=== PATIENT | male | born 1960 | race Caucasian/White ===

== ENCOUNTER 2020-01-06 09:29 | Outpatient (REF) | payer OTHER, SELFPAY ==
[2020-01-06 11:40] LABS: Alanine Aminotransferase 19 U/L (0-40); Albumin Level 4.3 g/dL (3.5-5.0); Alkaline Phosphatase 56 U/L (39-117); Anion Gap 14 (12-20); Aspartate Amino Transferase 14 U/L (5-37); Bilirubin Total 0.4 mg/dL (0.0-1.0); Blood Urea Nitrogen 16 mg/dL (9-16); Calcium 8.8 mg/dL (8.4-10.2); Carbon Dioxide 26 mmol/L (22-29); Chloride 104 mmol/L (96-108); Estimated Glomerular Filt Rate > 60; Glucose Random 131 mg/dL (60-115); Potassium 4.3 mmol/l (3.3-5.1); Sodium 140 mmol/L (135-145); Total Protein 6.5 g/dL (6.5-8.0)
[2020-01-06 11:42] LABS: Estimated Average Glucose 123 mg/dL; Hemoglobin A1c % 5.9 %
== END 2020-01-06 09:30 | disposition home or self-care (01) ==
LOC: HO.HMGCX 09:29
PROVIDERS: PCP Internal Medicine; Visit Provider Internal Medicine
DX: E11.65 Type 2 diabetes mellitus with hyperglycemia (principal); E78.5 Hyperlipidemia, unspecified; E55.9 Vitamin D deficiency, unspecified
CPT/HCPCS: 80053; 83036

== ENCOUNTER → 2020-01-08 14:03 | Outpatient (BNVA) | payer OTHER, SELFPAY | PROVIDERS: PCP Internal Medicine; Referring Provider Internal Medicine; Visit Provider Internal Medicine | DX: E11.9 Type 2 diabetes mellitus without complications (principal); I10 Essential (primary) hypertension; E78.5 Hyperlipidemia, unspecified; E04.1 Nontoxic single thyroid nodule | CPT/HCPCS: 82947; 99212 ==

== ENCOUNTER 2020-04-03 08:34 | Outpatient (REF) | payer OTHER, SELFPAY ==
[2020-04-03 11:21] LABS: MANUAL DIFF FLAG NO
[2020-04-03 11:40] LABS: Estimated Average Glucose 126 mg/dL
[2020-04-03 11:46] LABS: Basophils Absolute Auto 0.1 X10*3/uL (0.0-0.2); Basophils Percent Auto 0.6 % (0-2); Eosinophils Absolute Auto 0.1 X10*3/uL (0.0-0.4); Hematocrit 45.5 % (42-52); Hemoglobin 14.2 g/dl (14.0-18.0); Imm Gran Abs Auto 0.05 X10*3/uL (0.00-0.03); Imm Gran Pct Auto 0.6 % (0.0-0.4); Lymphocytes Absolute Auto 2.9 X10*3/uL (1.2-4.9); Lymphocytes Percent Auto 33.4 % (20-40); Mean Corpuscular HGB Conc 31.2 g/dl (31.0-36.0); Mean Corpuscular Hemoglobin 26.7 pg (27.0-33.0); Mean Corpuscular Volume 85.5 fL (80-98); Mean Platelet Volume 11.1 fL (9.4-12.4); Monocytes Absolute Auto 0.7 X10*3/uL (0.1-1.2); Monocytes Percent Auto 8.5 % (2-11); Neutrophils Absolute Auto 4.9 X10*3/uL (2.0-8.3); Neutrophils Percent Auto 55.9 % (45-73); Platelet Count 263 X10*3/uL (160-400); Red Blood Count 5.32 X10*6/uL (4.60-5.80); Red Cell Distribution Width 15.1 % (11.0-16.0); White Blood Count 8.7 X10*3/uL (4.8-10.8)
[2020-04-03 12:15] LABS: Alanine Aminotransferase 21 U/L (0-40); Albumin Level 4.2 g/dL (3.5-5.0); Alkaline Phosphatase 50 U/L (39-117); Anion Gap 17 (12-20); Aspartate Amino Transferase 13 U/L (5-37); Bilirubin Total 0.4 mg/dL (0.0-1.0); Blood Urea Nitrogen 16 mg/dL (9-16); Calcium 8.6 mg/dL (8.4-10.2); Carbon Dioxide 26 mmol/L (22-29); Chloride 104 mmol/L (96-108); Cholesterol 138 mg/dL; Estimated Glomerular Filt Rate > 60; Glucose Random 138 mg/dL (60-115); HDL Cholesterol 33 mg/dL; LDL Cholesterol Calculated 78 mg/dl; Potassium 4.7 mmol/l (3.3-5.1); Sodium 142 mmol/L (135-145); Total Protein 6.5 g/dL (6.5-8.0); Triglycerides 135 mg/dL
[2020-04-03 12:37] LABS: Creatinine Urine 148.72 mg/dL; Microalbum/Creatinine Ratio Ur 14.1 ug/mg cr
[2020-04-04 11:03] LABS: LDL Cholesterol Direct 92 mg/dL (<100)
[2020-04-08 03:17] LABS: Fructosamine 230 umol/L (205-285)
== END 2020-04-03 08:35 | disposition home or self-care (01) ==
LOC: HO.HMGCLDS 08:34
PROVIDERS: PCP Internal Medicine; Visit Provider Internal Medicine
DX: E11.9 Type 2 diabetes mellitus without complications (principal)
CPT/HCPCS: 36415; 80053; 80061; 82043; 82985; 83036; 83721; 85025

== ENCOUNTER → 2020-04-08 14:29 | Outpatient (BNVA) | payer OTHER, SELFPAY | PROVIDERS: PCP Internal Medicine; Visit Provider Internal Medicine | DX: E11.9 Type 2 diabetes mellitus without complications (principal); E78.5 Hyperlipidemia, unspecified; E04.1 Nontoxic single thyroid nodule; I10 Essential (primary) hypertension | CPT/HCPCS: 82947; 99212 ==

== ENCOUNTER 2020-07-03 07:37 | Outpatient (REF) | payer OTHER, SELFPAY ==
[2020-07-03 12:03] LABS: Estimated Average Glucose 123 mg/dL; Hemoglobin A1C 152.3852 umol/L; Hemoglobin A1c % 5.9 %
[2020-07-03 12:06] LABS: Alanine Aminotransferase 19 U/L (0-40); Albumin Level 4.1 g/dL (3.5-5.0); Alkaline Phosphatase 51 U/L (39-117); Anion Gap 13 (12-20); Aspartate Amino Transferase 13 U/L (5-37); Bilirubin Total 0.6 mg/dL (0.0-1.0); Blood Urea Nitrogen 17 mg/dL (9-16); Calcium 9.1 mg/dL (8.4-10.2); Carbon Dioxide 25 mmol/L (22-29); Chloride 105 mmol/L (96-108); Creatinine Urine 72.46 mg/dL; Estimated Glomerular Filt Rate > 60; Glucose Random 132 mg/dL (60-115); Potassium 4.3 mmol/L (3.3-5.1); Sodium 139 mmol/L (135-145); Total Protein 6.3 g/dL (6.5-8.0)
== END 2020-07-03 07:38 | disposition home or self-care (01) ==
LOC: HO.HMGCLDS 07:37
PROVIDERS: PCP Internal Medicine; Visit Provider Internal Medicine
DX: E11.9 Type 2 diabetes mellitus without complications (principal)
CPT/HCPCS: 36415; 80053; 83036

== ENCOUNTER → 2020-07-08 11:50 | Outpatient (BNVA) | payer OTHER, SELFPAY | PROVIDERS: PCP Internal Medicine; Visit Provider Internal Medicine | DX: E04.1 Nontoxic single thyroid nodule (principal); E11.9 Type 2 diabetes mellitus without complications; E78.5 Hyperlipidemia, unspecified; I10 Essential (primary) hypertension; K21.9 Gastro-esophageal reflux disease without esophagitis; K22.70 Barrett's esophagus without dysplasia; F32.9 Major depressive disorder, single episode, unspecified; F17.290 Nicotine dependence, other tobacco product, uncomplicated; Z83.3 Family history of diabetes mellitus; Z79.84 Long term (current) use of oral hypoglycemic drugs; Z79.82 Long term (current) use of aspirin; Z79.899 Other long term (current) drug therapy | CPT/HCPCS: Q3014 ==

== ENCOUNTER 2020-10-01 08:04 | Outpatient (REF) | payer OTHER, SELFPAY ==
[2020-10-01 12:02] LABS: Estimated Average Glucose 128 mg/dL; Hemoglobin A1c % 6.1 %
[2020-10-01 12:22] LABS: Alanine Aminotransferase 20 U/L (0-40); Albumin Level 4.1 g/dL (3.5-5.0); Alkaline Phosphatase 49 U/L (39-117); Anion Gap 13 (12-20); Aspartate Amino Transferase 16 U/L (5-37); Bilirubin Total 0.4 mg/dL (0.0-1.0); Blood Urea Nitrogen 15 mg/dL (9-16); Calcium 9.5 mg/dL (8.4-10.2); Carbon Dioxide 25 mmol/L (22-29); Chloride 107 mmol/L (96-108); Estimated Glomerular Filt Rate > 60; Glucose Random 132 mg/dL (60-115); Potassium 4.4 mmol/L (3.3-5.1); Sodium 141 mmol/L (135-145); Total Protein 6.3 g/dL (6.5-8.0)
== END 2020-10-01 08:05 | disposition home or self-care (01) ==
LOC: HO.HMGCLDS 08:04
PROVIDERS: PCP Internal Medicine; Visit Provider Internal Medicine
DX: E11.9 Type 2 diabetes mellitus without complications (principal)
CPT/HCPCS: 36415; 80053; 83036

== ENCOUNTER → 2020-10-05 13:58 | Outpatient (BNVA) | payer OTHER, SELFPAY | PROVIDERS: PCP Internal Medicine; Visit Provider Internal Medicine | DX: E11.9 Type 2 diabetes mellitus without complications (principal); I10 Essential (primary) hypertension; E78.5 Hyperlipidemia, unspecified; E04.1 Nontoxic single thyroid nodule | CPT/HCPCS: 82947; 99212 ==

== ENCOUNTER 2020-10-28 10:31 | Outpatient (REF) | payer OTHER, SELFPAY ==
--- NOTE | ~2020-10-28 | US_ITS ---
EXAMINATION: US THYROID CLINICAL INFORMATION: Nontoxic single thyroid nodule. COMPARISON: Ultrasound soft tissue head/neck thyroid dated 09/30/2019 TECHNIQUE: Linear transducer dixon-scale and color Doppler examination with attention to the region of the thyroid. Technically limited study secondary to body habitus. FINDINGS: SIZE: Measurements of the thyroid lobes and nodules are given in sagittal, anteroposterior and transverse dimensions respectively. Right Thyroid Lobe: 4.4 x 1.7 x 1.3 cm, volume 5.3 mL. Previously 4.4 x 1.5 x 1.6 cm, volume 5.5 mL. Parenchyma: The gland echotexture is homogeneous. Thyroid vascularity is normal. Left Thyroid Lobe: 4.9 x 1.1 x 1.8 cm, volume 4.8 mL. Previously 4.1 x 1.8 x 1.2 cm, volume 4.5 mL. Parenchyma: The gland echotexture is homogeneous. Thyroid vascularity is normal. Isthmus: 0.7 cm in maximum AP dimension. Previously 0.5 cm. Estimated total number of nodules greater than or equal to 1 cm: 0. Police Officer Booking nodules are described as follows: 1. Location: Right mid. Size: 0.58 x 0.34 x 0.4 cm, volume 0.04 mL. Previously: 0.5 x 0.31 x 0.45 cm, volume 0.04 mL. Nodule characteristics: Composition: Mixed cystic and solid (1). Echogenicity: Very hypoechoic (3). Shape: Not taller than wide (0). Margins: Smooth (0). Echogenic Foci: None (0). ACR TI-RADS total points: 4 ACR TI-RADS category: 4 Significant change in size (>/= 20% in 2 dimensions and minimal increase of 2 mm or 50% or greater increase in volume): None. Change in features: Not applicable. Change in ACR TI-RADS risk category: Not applicable. NODES: No lymphadenopathy is seen in the tissue surrounding the thyroid gland. US/US thyroid IMPRESSION: Normal size thyroid gland with subcentimeter nodule midpole right lobe. ACR TI-RADS RECOMMENDATION REFERENCE: Ultrasound-guided fine-needle aspiration, followup ultrasound, no further followup. * TR1 (0 point) and TR 2 (2 points): No FNA or followup. * TR3 (3 points): FNA if more than or equal to 2.5 cm in maximum dimension, followup ultrasound in 1, 3 and 5 years if 1.5 to 2.4 cm in maximum dimension. * TR4 (4-6 points): FNA if more than or equal to 1.5 cm in maximum dimension, followup ultrasound in 1, 2, 3 and 5 years if 1 to 1.4 cm in maximum dimension. * TR5 (more than or equal to 7 points): FNA if more than or equal to 1 cm in maximum dimension, followup ultrasound every year for 5 years if 0.5 to 0.9 cm in maximum dimension. * TR3, TR4 or TR5 nodules that are below the size threshold for followup receive no followup.
== END 2020-10-28 10:32 | disposition home or self-care (01) ==
LOC: HO.HMGCX 10:31
PROVIDERS: PCP Internal Medicine; Visit Provider Internal Medicine
DX: E04.1 Nontoxic single thyroid nodule (principal)
CPT/HCPCS: 76536

== ENCOUNTER 2020-11-04 07:14 | Day surgery (SDC) | payer OTHER, SELFPAY ==
[2020-10-28 14:23] VITALS: BMI 37.9
--- NOTE | 2020-11-03 08:30 | P.CONAN_ITS ---
Documented by User: Lucero Macedo NP 11/03/20 08:31 HPI - Anesthesia Eval Consult details Narrative: 59yo M for Colonoscopy PMFSH Active Problems Active Problems: All Active Problems (Updated 05/14/20 @ 09:52 by Oralia Smith MD) Annual physical exam (Acute) Abnormal colonoscopy (Acute) Anxiety (Acute) Lin esophagus (Acute) Thyroid nodule (Acute) T2DM (type 2 diabetes mellitus) (Acute) HLD (hyperlipidemia) (Acute) HTN (hypertension) (Acute) Past Medical History Medical History Abnormal colonoscopy Annual physical exam Anxiety Lin esophagus GERD (gastroesophageal reflux disease) HLD (hyperlipidemia) HTN (hypertension) Iron deficiency anemia Panic disorder T2DM (type 2 diabetes mellitus) Thyroid nodule Family History Family History Father Diabetes mellitus Mother Diabetes mellitus CVD (cardiovascular disease) Surgical History Surgical History History of back surgery History of esophagogastroduodenoscopy (EGD) Hx of colonoscopy Hx of hernia repair Social History Social History Alcohol intake: current Alcohol intake frequency: a few times a week Patient Tobacco Use Status: Current someday Tobacco user Tobacco use type: Cigar Are you DNR?: No Advance Directives: No Advance Directives Information Provided: No Advance Directives on File: No Meds Allergies Allergy/AdvReac Type Severity Reaction Status Date / Time No Known Allergies Allergy Verified 10/28/20 14:19 Home Medications Medication Instructions Recorded Confirmed Last Taken Type blood sugar diagnostic #10 ea 01/08/20 10/05/20 Unknown History aspirin 81 mg tablet,delayed 81 mg PO Q OTHER DAY 07/08/20 10/28/20 10/28/20 History release (Adult Low Dose Aspirin) ferrous sulfate 325 mg (65 mg 325 mg PO Q OTHER DAY 07/08/20 10/28/20 Unknown History iron) tablet (iron) atorvastatin 40 mg tablet 40 mg PO BEDTIME 10/28/20 10/28/20 Unknown History bupropion HCl 300 mg 24 hr tablet, 300 mg PO BEDTIME 10/28/20 10/28/20 Unknown History extended release metoprolol succinate 50 mg 50 mg PO BEDTIME 10/28/20 10/28/20 11/04/20 History tablet,extended release 24 hr omeprazole 20 mg capsule,delayed 20 mg PO DAILY@1700 10/28/20 10/28/20 11/04/20 History release Exam Exam Date and Time: November 03, 2020 0830 Height,Weight and Vital Signs: Height 5 ft 7 in Weight 109.769 kg Pertinent Lab Results Pertinent Lab Results: Laboratory Tests 04/03/20 10/01/20 08:45 08:10 WBC 8.7 Hgb 14.2 Hct 45.5 Plt Count 263 Sodium 141 Potassium 4.4 Chloride 107 Carbon Dioxide 25 BUN 15 Creatinine 0.85 Assessment and Plan Assessment Anesthesia Assessment: Chart Reviewed Documented by User: Sharona Ybarra MD 11/04/20 07:56 PMFSH Past Medical History Medical History Abnormal colonoscopy Annual physical exam Anxiety Lin esophagus GERD (gastroesophageal reflux disease) HLD (hyperlipidemia) HTN (hypertension) Iron deficiency anemia Panic disorder T2DM (type 2 diabetes mellitus) Thyroid nodule Family History Family History Father Diabetes mellitus Mother Diabetes mellitus CVD (cardiovascular disease) Family history of problems with anesthesia: No Surgical History Surgical History History of back surgery History of esophagogastroduodenoscopy (EGD) Hx of colonoscopy Hx of hernia repair History of Problems with Anesthesia: No Social History Social History Alcohol intake: current Alcohol intake frequency: a few times a week Patient Tobacco Use Status: Current someday Tobacco user Tobacco use type: Cigar Are you DNR?: No Advance Directives: No Advance Directives Information Provided: No Advance Directives on File: No Meds Allergies Allergy/AdvReac Type Severity Reaction Status Date / Time No Known Allergies Allergy Verified 10/28/20 14:19 Home Medications Medication Instructions Recorded Confirmed Last Taken Type blood sugar diagnostic #10 ea 01/08/20 10/05/20 Unknown History aspirin 81 mg tablet,delayed 81 mg PO Q OTHER DAY 07/08/20 10/28/20 10/28/20 History release (Adult Low Dose Aspirin) ferrous sulfate 325 mg (65 mg 325 mg PO Q OTHER DAY 07/08/20 10/28/20 Unknown History iron) tablet (iron) atorvastatin 40 mg tablet 40 mg PO BEDTIME 10/28/20 10/28/20 Unknown History bupropion HCl 300 mg 24 hr tablet, 300 mg PO BEDTIME 10/28/20 10/28/20 Unknown History extended release metoprolol succinate 50 mg 50 mg PO BEDTIME 10/28/20 10/28/20 11/04/20 History tablet,extended release 24 hr omeprazole 20 mg capsule,delayed 20 mg PO DAILY@1700 10/28/20 10/28/20 11/04/20 History release Exam Airway Mallampati Class: II TM Dist: >3cm Neck ROM: Full Assessment and Plan Assessment Anesthesia Assessment: Anesthesia Plan Discussed Final Anesthetic Review Family History of Problems with Anesthesia: No History of Problems with Anesthesia: No NPO: Yes ASA Class: III Final Preanesthetic Review: No Changes in Pt Med Stat, Meds/Allgs Chart Reviewe d, Consent Obtained/Reviewed and Anes Risks/Benef Reviewed Patient Risk: Intermediate Procedure Risk: Low Assessment/Block/Sedation in SS: Assess/Block/Sedation-SS Anesthetic Plan Anesthetic Plan: MAC: Disposition: Standard PACU
[2020-11-04 07:31] VITALS: BP 136/73; PULSE 82; RESP 16; TEMP 36.3; O2SAT 98
[2020-11-04 07:38] LABS: Glucose, Whole Blood 130 mg/dL (60-115)
[2020-11-04] MEDS: Lactated Ringers 1,000 ML 100 ML IVCONT (07:42)
--- NOTE | 2020-11-04 09:36 | PM.OP ---
Brief Operative Note Date of Service: 11/04/20 Pre-op diagnosis: Screening Post-op diagnosis: other (Colon polyp) Procedure: Colonoscopy to the cecum with bx/removal of polyp Surgeon: Mihir Tirado Anesthesia: MAC Was an Senior Reservations Agent used for this Procedure?: No Estimated blood loss (mL): 3.0 Pathology: other (A. Colon polyp at 40cm) Condition: stable Disposition: PACU
[2020-11-04 09:38] VITALS: BP 136/59; PULSE 101; RESP 18; TEMP 36.4; O2SAT 98
[2020-11-04 09:51] VITALS: PULSE 84; RESP 20; O2SAT 98
--- NOTE | 2020-11-04 09:51 | OP_ITS ---
SURGEON: Mihir Tirado MD INDICATIONS: The patient presents for evaluation of colorectal cancer screening and personal history of colon polyps. Full consent has been obtained from him for this, including risks of bleeding and perforation. PREOPERATIVE DIAGNOSIS: POSTOPERATIVE DIAGNOSIS: PROCEDURE PERFORMED: Colonoscopy to cecum with biopsy and removal of polyp. ESTIMATED BLOOD LOSS: COMPLICATIONS: ANESTHESIA: Monitored anesthesia care. ASSISTANTS: SPECIMENS: PREOPERATIVE DIAGNOSES: Colorectal cancer screening and personal history of colon polyps. POSTOPERATIVE DIAGNOSES: Colorectal cancer screening and personal history of colon polyps, small colon polyp, diverticulosis, and internal hemorrhoids. DESCRIPTION OF PROCEDURE: The patient was placed in the left lateral decubitus position. The digital rectal exam revealed no abnormalities. The Olympus video pediatric colonoscope was entered into the rectum and advanced easily to the cecum. Once in the cecum, I did identify normal-appearing cecal pouch with appendiceal orifice and a normal-appearing ileocecal valve. The entire cecum appeared normal. There was transillumination of light deep in the right lower quadrant. The scope was slowly withdrawn assessing all mucosal surfaces carefully. Preparation was excellent. At 40 cm, was a flat approximately 3 or 4 mm polyp, which was biopsied and completely removed with cold biopsy forceps. I did not visualize any other polyps, colitis, nor angiodysplasia. There was a mild amount of sigmoid diverticulosis. In the rectum, scope was retroflexed visualizing internal hemorrhoids, but no other pathology. The rectal mucosa appeared normal. The scope was straightened out and withdrawn from the patient. He tolerated the procedure well and was returned to the recovery area in stable condition. IMPRESSION: 1. Colon polyp, status post biopsy and removal. 2. Diverticulosis. 3. Internal hemorrhoids. PLAN: The results of biopsy will be checked. I would recommend a repeat colonoscopy in 5 years for further surveillance. MD MARCELLA Knowles/JENNIFER / [id number]
[2020-11-04 09:53] VITALS: BP 120/69; PULSE 86; RESP 18; O2SAT 99
== END 2020-11-04 10:23 | disposition home or self-care (01) ==
PROVIDERS: PCP Internal Medicine; Visit Provider Internal Medicine
PROC: 0DJD8ZZ Inspection of Lower Intestinal Tract, Via Natural or Artificial Opening Endoscopic (ICD-10-PCS; CPT 45378; principal; 2020-11-04 08:20)
DX: Z12.11 Encounter for screening for malignant neoplasm of colon (principal); Z86.010 Personal history of colon polyps; D12.5 Benign neoplasm of sigmoid colon; K57.30 Diverticulosis of large intestine without perforation or abscess without bleeding; K64.8 Other hemorrhoids; K21.9 Gastro-esophageal reflux disease without esophagitis; D50.9 Iron deficiency anemia, unspecified; I10 Essential (primary) hypertension; E11.9 Type 2 diabetes mellitus without complications; Z79.84 Long term (current) use of oral hypoglycemic drugs; Z79.82 Long term (current) use of aspirin; Z79.899 Other long term (current) drug therapy
CPT/HCPCS: 45380; 82947; 88305

== ENCOUNTER 2021-03-31 08:25 | Outpatient (REF) | payer OTHER, SELFPAY ==
[2021-03-31 12:02] LABS: Estimated Average Glucose 126 mg/dL
[2021-03-31 12:09] LABS: Alanine Aminotransferase 26 U/L (0-40); Albumin Level 4.1 g/dL (3.5-5.0); Alkaline Phosphatase 48 U/L (39-117); Anion Gap 13 (12-20); Aspartate Amino Transferase 16 U/L (5-37); Bilirubin Total 0.4 mg/dL (0.0-1.0); Blood Urea Nitrogen 18 mg/dL (9-16); Calcium 9.5 mg/dL (8.4-10.2); Carbon Dioxide 25 mmol/L (22-29); Chloride 108 mmol/L (96-108); Cholesterol 134 mg/dL; Estimated Glomerular Filt Rate > 60; Glucose Random 130 mg/dL (60-115); HDL Cholesterol 38 mg/dL; LDL Cholesterol Calculated 76 mg/dl; Potassium 4.4 mmol/L (3.3-5.1); Sodium 142 mmol/L (135-145); Total Protein 6.5 g/dL (6.5-8.0); Triglycerides 104 mg/dL
[2021-03-31 12:10] LABS: Free T4 (Free Thyroxine) 0.92 ng/dL (0.71-1.85); Thyroid Stimulating Hormone 1.26 uIU/mL (0.32-4.0)
[2021-03-31 21:44] LABS: Creatinine Urine 92.88 mg/dL; Microalbum/Creatinine Ratio Ur 7.5 ug/mg cr
[2021-04-02 02:32] LABS: LDL Cholesterol Direct 80 mg/dL (<100)
== END 2021-03-31 08:26 | disposition home or self-care (01) ==
LOC: HO.HMGCLDS 08:25
PROVIDERS: PCP Internal Medicine; Visit Provider Internal Medicine
DX: E11.9 Type 2 diabetes mellitus without complications (principal); E04.1 Nontoxic single thyroid nodule
CPT/HCPCS: 36415; 80053; 80061; 82043; 83036; 83721; 84439; 84443

== ENCOUNTER → 2021-04-05 13:32 | Outpatient (BNVA) | payer OTHER, SELFPAY | PROVIDERS: PCP Internal Medicine; Visit Provider Internal Medicine | DX: E11.9 Type 2 diabetes mellitus without complications (principal); E78.5 Hyperlipidemia, unspecified; E04.1 Nontoxic single thyroid nodule; I10 Essential (primary) hypertension | CPT/HCPCS: 82947; 99212 ==

== ENCOUNTER → 2021-05-12 15:39 | Outpatient (BNVA) | payer OTHER, SELFPAY | PROVIDERS: PCP Internal Medicine; Visit Provider Surgery | DX: K64.4 Residual hemorrhoidal skin tags (principal) | CPT/HCPCS: 46600; 99202 ==

== ENCOUNTER → 2021-06-10 15:39 | Outpatient (BNVA) | payer OTHER, SELFPAY | PROVIDERS: PCP Internal Medicine; Referring Provider Internal Medicine; Visit Provider Surgery | DX: K64.4 Residual hemorrhoidal skin tags (principal) | CPT/HCPCS: 99212 ==

== ENCOUNTER 2021-06-14 07:35 | Outpatient (REF) | payer OTHER, SELFPAY ==
[2021-06-14 12:23] LABS: Alanine Aminotransferase 29 U/L (0-40); Albumin Level 3.9 g/dL (3.5-5.0); Alkaline Phosphatase 67 U/L (39-117); Anion Gap 11 (12-20); Aspartate Amino Transferase 19 U/L (5-37); Bilirubin Total 0.6 mg/dL (0.0-1.0); Blood Urea Nitrogen 11 mg/dL (9-16); Calcium 9.1 mg/dL (8.4-10.2); Carbon Dioxide 29 mmol/L (22-29); Chloride 104 mmol/L (96-108); Cholesterol 89 mg/dL; Estimated Glomerular Filt Rate > 60; Glucose Fasting 136 mg/dL (60-99); HDL Cholesterol 13 mg/dL; LDL Cholesterol Calculated 56 mg/dl; Potassium 4.1 mmol/L (3.3-5.1); Sodium 140 mmol/L (135-145); Total Protein 6.4 g/dL (6.5-8.0); Triglycerides 103 mg/dL
[2021-06-14 13:04] LABS: Estimated Average Glucose 128 mg/dL; Hemoglobin A1c % 6.1 %
== END 2021-06-14 07:36 | disposition home or self-care (01) ==
LOC: HO.HMGCLDS 07:35
PROVIDERS: Visit Provider Internal Medicine
DX: Z12.5 Encounter for screening for malignant neoplasm of prostate (principal); E11.9 Type 2 diabetes mellitus without complications; E78.5 Hyperlipidemia, unspecified; F41.9 Anxiety disorder, unspecified; I10 Essential (primary) hypertension
CPT/HCPCS: 36415; 80053; 80061; 83036; 84153

== ENCOUNTER → 2021-07-12 11:03 | Outpatient (BNVA) | payer OTHER, SELFPAY | PROVIDERS: PCP Internal Medicine; Visit Provider Internal Medicine | DX: Z13.89 Encounter for screening for other disorder (principal) ==

== ENCOUNTER 2021-07-30 08:03 | Outpatient (REF) | payer OTHER, SELFPAY ==
[2021-07-30 11:17] LABS: Hematocrit 44.2 % (42.0-52.0); Hemoglobin 13.3 g/dl (14.0-18.0); Mean Corpuscular HGB Conc 30.1 g/dl (31.0-36.0); Mean Corpuscular Hemoglobin 24.3 pg (27.0-33.0); Mean Corpuscular Volume 80.8 fL (80.0-98.0); Mean Platelet Volume 9.9 fL (9.4-12.4); Platelet Count 277 X10*3/uL (160-400); Red Blood Count 5.47 X10*6/uL (4.60-5.80); Red Cell Distribution Width 16.1 % (11.0-16.0); White Blood Count 7.6 X10*3/uL (4.8-10.8)
[2021-07-30 11:32] LABS: Cholesterol 130 mg/dL; HDL Cholesterol 23 mg/dL; Iron 41 mcg/dL (45-160); LDL Cholesterol Calculated 92 mg/dl; Percent Iron Saturation 12 % (15-50); Total Iron Binding Capacity 339 mcg/dL (228-428); Triglycerides 77 mg/dL; Unsaturated Iron Binding 298 ug/dL
[2021-07-30 11:55] LABS: Folate 5.5 ng/mL (> or = 4.0); Vitamin B12 317 pg/mL (200-900)
== END 2021-07-30 08:04 | disposition home or self-care (01) ==
LOC: HO.HMGCLDS 08:03
PROVIDERS: PCP Internal Medicine; Visit Provider Internal Medicine
DX: E78.5 Hyperlipidemia, unspecified (principal); I10 Essential (primary) hypertension; E61.1 Iron deficiency
CPT/HCPCS: 36415; 80061; 82607; 82746; 83540; 85027

== ENCOUNTER 2021-08-03 05:57 | Day surgery (SDC) | payer OTHER, SELFPAY ==
[2021-07-28 11:33] VITALS: BMI 36.3
--- NOTE | 2021-08-02 08:28 | HO.ANESPROP2 ---
Documented by User: Lucero Macedo NP 08/02/21 08:29 HPI - Anesthesia Eval Consult details Narrative: 60yo M for EUA,Hemorrhoidectomy PMFSH Active Problems Active Problems: All Active Problems (Updated 06/17/21 @ 12:38 by Oralia Smith MD) Iron deficiency (Acute) Hyperlipemia (Acute) External hemorrhoids with complication (Acute) Rectal prolapse (Acute) Annual physical exam (Acute) Abnormal colonoscopy (Acute) Anxiety (Acute) Lin esophagus (Acute) Thyroid nodule (Acute) T2DM (type 2 diabetes mellitus) (Acute) HTN (hypertension) (Acute) Past Medical History Medical History Abnormal colonoscopy Annual physical exam Anxiety Lin esophagus External hemorrhoids with complication GERD (gastroesophageal reflux disease) HTN (hypertension) Hyperlipemia Iron deficiency Iron deficiency anemia Panic disorder Rectal prolapse T2DM (type 2 diabetes mellitus) Thyroid nodule Family History Family History Father Diabetes mellitus Mother Diabetes mellitus CVD (cardiovascular disease) Family history of problems with anesthesia: No Surgical History Surgical History (Updated 07/28/21 @ 11:30 by Makenna Handley RN) History of back surgery History of esophagogastroduodenoscopy (EGD) Hx of colonoscopy Hx of hernia repair History of Problems with Anesthesia: No Social History Social History Housing: House Alcohol intake: current Alcohol intake frequency: holidays/special occasions only Patient Tobacco Use Status: Current someday Tobacco user Tobacco use type: Cigarette e-Cigarette/Vaping Use: Never Used Use of substances other than those prescribed or required for medical reasons: No Are you DNR?: No Advance Directives: No Advance Directives Information Provided: Yes Current occupational status: employed Cognitive needs: No Hearing needs: No Vision needs: Yes Meds Allergies Allergy/AdvReac Type Severity Reaction Status Date / Time No Known Allergies Allergy Verified 07/12/21 13:00 Home Medications Medication Instructions Recorded Confirmed Last Taken Type blood sugar diagnostic #10 ea 01/08/20 07/12/21 Unknown History aspirin 81 mg tablet,delayed 81 mg PO Q OTHER DAY 07/08/20 07/28/21 10/28/20 History release (Adult Low Dose Aspirin) ferrous sulfate 325 mg (65 mg 325 mg PO Q OTHER DAY 07/08/20 07/28/21 Unknown History iron) tablet (iron) Exam Exam Date and Time: August 02, 2021 0828 Height,Weight and Vital Signs: Height 5 ft 7 in Weight 105.233 kg Pertinent Lab Results Pertinent Lab Results: Laboratory Tests 06/14/21 07/30/21 07:42 08:10 WBC 7.6 Hgb 13.3 L Hct 44.2 Plt Count 277 Sodium 140 Potassium 4.1 Chloride 104 Carbon Dioxide 29 BUN 11 Creatinine 0.83 Assessment and Plan Assessment Anesthesia Assessment: Chart Reviewed Final Anesthetic Review Family History of Problems with Anesthesia: No History of Problems with Anesthesia: No Documented by User: Marie Guevara MD 08/03/21 08:06 PMF Active Problems Active Problems: All Active Problems (Updated 06/17/21 @ 12:38 by Oralia Smith MD) Iron deficiency (Acute) Hyperlipemia (Acute) External hemorrhoids with complication (Acute) Rectal prolapse (Acute) Annual physical exam (Acute) Abnormal colonoscopy (Acute) Anxiety (Acute) Lin esophagus (Acute) Thyroid nodule (Acute) T2DM (type 2 diabetes mellitus) (Acute) HTN (hypertension) (Acute) HILARIA. Not using CPAP machine Past Medical History Medical History Abnormal colonoscopy Annual physical exam Anxiety Lin esophagus External hemorrhoids with complication GERD (gastroesophageal reflux disease) HTN (hypertension) Hyperlipemia Iron deficiency Iron deficiency anemia Panic disorder Rectal prolapse T2DM (type 2 diabetes mellitus) Thyroid nodule Family History Family History Father Diabetes mellitus Mother Diabetes mellitus CVD (cardiovascular disease) Surgical History Surgical History (Updated 07/28/21 @ 11:30 by Makenna Handley RN) History of back surgery History of esophagogastroduodenoscopy (EGD) Hx of colonoscopy Hx of hernia repair Social History Social History Housing: House Alcohol intake: current Alcohol intake frequency: holidays/special occasions only Patient Tobacco Use Status: Current someday Tobacco user Tobacco use type: Cigarette e-Cigarette/Vaping Use: Never Used Use of substances other than those prescribed or required for medical reasons: No Are you DNR?: No Advance Directives: No Advance Directives Information Provided: Yes Current occupational status: employed Cognitive needs: No Hearing needs: No Vision needs: Yes Meds Allergies Allergy/AdvReac Type Severity Reaction Status Date / Time No Known Allergies Allergy Verified 07/12/21 13:00 Home Medications Medication Instructions Recorded Confirmed Last Taken Type blood sugar diagnostic #10 ea 01/08/20 07/12/21 Unknown History aspirin 81 mg tablet,delayed 81 mg PO Q OTHER DAY 07/08/20 07/28/21 10/28/20 History release (Adult Low Dose Aspirin) ferrous sulfate 325 mg (65 mg 325 mg PO Q OTHER DAY 07/08/20 07/28/21 Unknown History iron) tablet (iron) Exam Height,Weight and Vital Signs: Height 5 ft 7 in Weight 105.233 kg Vital Signs Temp Pulse Resp BP Pulse Ox 08/03/21 07:00 97.0 F 82 16 150/79 H 97 Pertinent Lab Results Pertinent Lab Results: Laboratory Tests 06/14/21 07/30/21 07:42 08:10 WBC 7.6 Hgb 13.3 L Hct 44.2 Plt Count 277 Sodium 140 Potassium 4.1 Chloride 104 Carbon Dioxide 29 BUN 11 Creatinine 0.83 Lab Results 08/03/21 Range/Units 06:22 POC Glucose 144 H (60-115) mg/dL Airway Mallampati Class: III TM Dist: >3cm (Short neck. Increased neck circumference, Big face) Neck ROM: Full Loose/Missing/Broken Teeth: No Heart: RRR Lungs: CTAB Assessment and Plan Assessment Anesthesia Assessment: Anesthesia Plan Discussed Final Anesthetic Review NPO: Yes ASA Class: III Final Preanesthetic Review: No Changes in Pt Med Stat, Meds/Allgs Chart Reviewed, Consent Obtained/Reviewed and Anes Risks/Benef Reviewed Patient Risk: Intermediate Procedure Risk: Low Assessment/Block/Sedation in SS: Assess/Block/Sedation-SS Anesthetic Plan Anesthetic Plan: GA Disposition: Standard PACU
[2021-08-03 06:26] LABS: Glucose, Whole Blood 144 mg/dL (60-115)
[2021-08-03] MEDS: Lactated Ringers 1,000 ML 100 ML IVCONT (06:31)
[2021-08-03 07:00] VITALS: BP 150/79; PULSE 82; RESP 16; TEMP 36.1; O2SAT 97
--- NOTE | 2021-08-03 07:23 | MHC.SHP ---
Pre-Procedural Eval Section A Date of Service: 08/03/21 Section B Chief Complaint: hemorrhoid skin tags Details of Present Illness: has had hemorrhoids with pain and bleeding, and frequent swelling Relevant Family History (Specify if Yes): No Relevant Social History: None Present Medications: see Short Stay Collaborative assessment Medical History: Significant History ( diabetes, hypertension) Allergies: Allergies Allergy/AdvReac Type Severity Reaction Status Date / Time No Known Allergies Allergy Verified 07/12/21 13:00 Review of Systems Sugical H&P ROS: Negative: Constitution, Cardiovascular, Respiratory, Neurological, Psychiatric, Hem-Onc, Allergic/Immunologic, Gastrointestinal, Genitourinary, Musculoskeletal, Integumentary, Endocrine and Eyes/Ears/Nose/Throat Exam Surgical H&P Exam: Normal: HEENT, Normal: Heart, Normal: Lungs, Normal: Extremities, Normal: Abdomen, Normal: Skin and Normal: Neurological Exam Comment: prominent external hemorrhoids, left Plan Diagnosis/Plan: Unchanged I have reviewed the history and physical and performed a pertinent physical examination on my patient. No changes have occurred unless specified.
--- NOTE | 2021-08-03 08:16 | P.OP_ITS ---
Operative Note Operative Note Date of Service: 08/03/21 Narrative: Preop diagnosis: Internal and external hemorrhoids, with frequent swelling Postop diagnosis: The same Procedure: Exam under anesthesia, hemorrhoidectomy x2 columns Surgeon: Jose Fishman MD The patient is a 60-year-old male with history of frequent pain and swelling with this hemorrhoids. He was seen in the office and did have a left hemorrhoidal column which was prominent. He understood the technique of hem orrhoidectomy. He was aware of the risks, benefits, and alternatives. He was brought to the operating room. He was placed in prone ronald-knife position under general anesthesia via endotracheal tube. The buttocks were retracted with wide tape laterally. The perianal area was prepped and draped in the usual sterile fashion. A surgical time-out was done. I infiltrated the perianal area with lidocaine 1% Examination of the anal orifice revealed a prominent hemorrhoidal column on the left, and on the right. I inserted the Nakul Garibay retractor and examined the anal canal circumferentially. Again this hemorrhoidal columns were seen on the left on the right side, mix of both internal external hemorrhoids. There were no other lesions. There was no fissure. There was no bleeding or thrombosis . I applied a Otero grasper on the Mixed hemorrhoidal column on the left. I made a figure of 8 stitch at its pedicle proximal to the dentate line with a chromic 3-0. I made an incision around this hemorrhoidal column to the perianal skin using blade 15. I excised this hemorrhoidal column along this incision about the plane of sphincters using scissors. I then closed the incision with a running chromic 3-0 stitch. Additional hemostatic [id number] chromic 3-0 sutures were also placed. I then applied a Otero grasper on the hemorrhoidal column on the right. Then, I made a figure of 8 stitch its pedicle using chromic 3-0 and made an incision around this to the perianal skin. I excised this hemorrhoidal column along this incision above the plane of the sphincters using scissors and closed the incision with a running chromic 3-0 stitch. Additional hemostatic sutures were placed Once hemostasis was ensured, I then infiltrated the perianal area with Marcaine 0.5% for postop analgesia. I noted a rolled Gelfoam packing into the anal canal for additional hemostasis The procedure was then completed The patient tolerated procedure well. There were no complications noted. Initial and final counts of sponges and instruments were correct. Estimated blood loss about 25 cc. The patient was extubated without difficulty and transferred to the recovery room with stable vital signs.
[2021-08-03 08:27] VITALS: BP 135/78; PULSE 80; RESP 16; TEMP 36.1; O2SAT 100
[2021-08-03 08:32] VITALS: BP 141/82; PULSE 84; RESP 16; O2SAT 97
[2021-08-03 08:37] VITALS: BP 150/78; PULSE 87; RESP 16; O2SAT 98
[2021-08-03 08:42] VITALS: BP 139/78; PULSE 86; RESP 16; TEMP 36.1; O2SAT 96
[2021-08-03] MEDS: oxyCODONE HCl Immed Release 5 MG TABLET 10 MG PO (08:48)
[2021-08-03] MEDS: Ketorolac Tromethamine 30 MG/ML VIAL 15 MG IVPUSH (08:49)
[2021-08-03 08:57] VITALS: BP 128/47; PULSE 82; RESP 18; TEMP 36.1; O2SAT 97
== END 2021-08-03 09:46 | disposition home or self-care (01) ==
PROVIDERS: PCP Internal Medicine; Visit Provider Surgery
PROC: (CPT 46260; principal; 2021-08-03 07:30)
DX: K64.8 Other hemorrhoids (principal); K64.4 Residual hemorrhoidal skin tags; K21.9 Gastro-esophageal reflux disease without esophagitis; K22.70 Barrett's esophagus without dysplasia; E78.5 Hyperlipidemia, unspecified; I10 Essential (primary) hypertension; D50.9 Iron deficiency anemia, unspecified; E11.9 Type 2 diabetes mellitus without complications; Z79.82 Long term (current) use of aspirin; Z79.84 Long term (current) use of oral hypoglycemic drugs; Z79.899 Other long term (current) drug therapy
CPT/HCPCS: 46260; 82947; 88304; J1100; J1885; J2250; J2405; J3010

== ENCOUNTER 2021-10-06 08:54 | Outpatient (REF) | payer OTHER, SELFPAY ==
[2021-10-06 11:37] LABS: Estimated Average Glucose 120 mg/dL; Hemoglobin A1c % 5.8 %
[2021-10-06 11:44] LABS: Alanine Aminotransferase 20 U/L (0-40); Albumin Level 4.3 g/dL (3.5-5.0); Alkaline Phosphatase 55 U/L (39-117); Anion Gap 13 (12-20); Aspartate Amino Transferase 15 U/L (5-37); Bilirubin Total 0.4 mg/dL (0.0-1.0); Blood Urea Nitrogen 11 mg/dL (9-16); Calcium 9.1 mg/dL (8.4-10.2); Carbon Dioxide 27 mmol/L (22-29); Chloride 106 mmol/L (96-108); Estimated Glomerular Filt Rate > 60; Glucose Random 156 mg/dL (60-115); Potassium 4.5 mmol/L (3.3-5.1); Sodium 141 mmol/L (135-145); Total Protein 6.6 g/dL (6.5-8.0)
[2021-10-06 11:57] LABS: Free T4 (Free Thyroxine) 0.95 ng/dL (0.71-1.85); Thyroid Stimulating Hormone 1.55 uIU/mL (0.32-4.0)
[2021-10-06 12:14] LABS: Creatinine Urine 110.27 mg/dL
[2021-10-06 12:22] LABS: Vitamin B12 272 pg/mL (200-900)
== END 2021-10-06 08:55 | disposition home or self-care (01) ==
LOC: HO.HMGCLDS 08:54
PROVIDERS: Visit Provider Internal Medicine
DX: E11.9 Type 2 diabetes mellitus without complications (principal); E04.1 Nontoxic single thyroid nodule
CPT/HCPCS: 36415; 80053; 82607; 83036; 84439; 84443

== ENCOUNTER → 2021-10-11 12:33 | Outpatient (BNVA) | payer OTHER, SELFPAY | PROVIDERS: PCP Internal Medicine; Visit Provider Internal Medicine | DX: E11.9 Type 2 diabetes mellitus without complications (principal); E04.1 Nontoxic single thyroid nodule; I10 Essential (primary) hypertension; E78.5 Hyperlipidemia, unspecified | CPT/HCPCS: 82947 ==

== ENCOUNTER 2021-11-03 15:24 | Outpatient (REF) | payer OTHER, SELFPAY ==
--- NOTE | ~2021-11-03 | US_ITS ---
EXAMINATION: US THYROID CLINICAL INFORMATION: Nontoxic single thyroid nodule. COMPARISON: US thyroid 10/28/2020 and 09/30/2019. TECHNIQUE: Linear transducer grayscale and color Doppler examination with attention to the region of the thyroid. Technically limited study secondary to body habitus. FINDINGS: SIZE: Measurements of the thyroid lobes and nodules are given in sagittal, anteroposterior and transverse dimensions respectively. Right Thyroid Lobe: 4.7 x 1.7 x 2.0 cm, volume 8.4 mL. Previously 4.4 x 1.7 x 1.3 cm, volume 5.3 mL. Parenchyma: The gland echotexture is homogeneous. Thyroid vascularity is normal. Left Thyroid Lobe: 4.0 x 1.6 x 1.5 cm, volume 5.0 mL. Previously 4.9 x 1.1 x 1.8 cm, volume 4.8 mL. Parenchyma: The gland echotexture is homogeneous. Thyroid vascularity is normal. Isthmus: 0.5 cm in maximum AP dimension. Previously 0.7 cm. Estimated total number of nodules greater than or equal to 1 cm: 0. Building Analyst/Supervisor nodules are described as follows: 1. Location: Right mid. Size: 0.5 x 0.4 x 0.5 cm, volume 0.05 mL. Previously: 0.6 x 0.3 x 0.4 cm, volume 0.04 mL. Nodule characteristics: Composition: Spongiform (0). Echogenicity: Anechoic (0). Shape: Not taller than wide (0). Margins: Smooth (0). Echogenic Foci: None (0). ACR TI-RADS total points: 0. Previous: 4. ACR TI-RADS category: 1. Previous: 4. Significant change in size (>/= 20% in 2 dimensions and minimal increase of 2 mm or 50% or greater increase in volume): No change. Change in features: Improved. Change in ACR TI-RADS risk category: Improved. NODES: No lymphadenopathy is seen in the tissue surrounding the thyroid gland. US/US thyroid IMPRESSION: Thyromegaly without increased vascularity or irregularity. Solitary midpole right thyroid nodule has improved in TI-RADS category and points. The size remains the same.. ACR TI-RADS RECOMMENDATION REFERENCE: Ultrasound-guided fine-needle aspiration, followup ultrasound, no further follow up. * TR1 (0 point) and TR 2 (2 points): No FNA or follow up. * TR3 (3 points): FNA if more than or equal to 2.5 cm in maximum dimension, followup ultrasound in 1, 3 and 5 years if 1.5 to 2.4 cm in maximum dimension. * TR4 (4-6 points): FNA if more than or equal to 1.5 cm in maximum dimension, followup ultrasound in 1, 2, 3 and 5 years if 1 to 1.4 cm in maximum dimension. * TR5 (more than or equal to 7 points): FNA if more than or equal to 1 cm in maximum dimension, followup ultrasound every year for 5 years if 0.5 to 0.9 cm in maximum dimension. * TR3, TR4 or TR5 nodules that are below the size threshold for follow up receive no follow up.
== END 2021-11-03 15:25 | disposition home or self-care (01) ==
LOC: HO.HMGCX 15:24
PROVIDERS: PCP Internal Medicine; Visit Provider Internal Medicine
DX: E04.1 Nontoxic single thyroid nodule (principal)
CPT/HCPCS: 76536

== ENCOUNTER 2022-02-21 08:09 | Outpatient (REF) | payer OTHER, SELFPAY ==
[2022-02-21 11:36] LABS: Estimated Average Glucose 126 mg/dL
[2022-02-21 11:53] LABS: Creatinine Urine 88.11 mg/dL; Microalbum/Creatinine Ratio Ur 6.8 ug/mg cr
[2022-02-21 12:10] LABS: Alanine Aminotransferase 24 U/L (0-40); Albumin Level 4.3 g/dL (3.5-5.0); Alkaline Phosphatase 48 U/L (39-117); Anion Gap 12 (12-20); Aspartate Amino Transferase 18 U/L (5-37); Bilirubin Total 0.4 mg/dL (0.0-1.0); Blood Urea Nitrogen 18 mg/dL (9-16); Calcium 9.2 mg/dL (8.4-10.2); Carbon Dioxide 28 mmol/L (22-29); Chloride 104 mmol/L (96-108); Cholesterol 137 mg/dL; Estimated Glomerular Filt Rate > 60; Glucose Fasting 140 mg/dL (60-99); HDL Cholesterol 34 mg/dL; LDL Cholesterol Calculated 74 mg/dl; Potassium 4.5 mmol/L (3.3-5.1); Sodium 139 mmol/L (135-145); Total Protein 6.5 g/dL (6.5-8.0); Triglycerides 145 mg/dL
== END 2022-02-21 08:10 | disposition home or self-care (01) ==
LOC: HO.HMGCLDS 08:09
PROVIDERS: PCP Internal Medicine; Visit Provider Internal Medicine
DX: E78.5 Hyperlipidemia, unspecified (principal); I10 Essential (primary) hypertension; E11.9 Type 2 diabetes mellitus without complications
CPT/HCPCS: 36415; 80053; 80061; 82043; 83036

== ENCOUNTER 2022-04-12 08:45 | Outpatient (REF) | payer OTHER, SELFPAY ==
[2022-04-12 12:12] LABS: Alanine Aminotransferase 16 U/L (0-40); Albumin Level 4.1 g/dL (3.5-5.0); Alkaline Phosphatase 60 U/L (39-117); Anion Gap 14 (12-20); Aspartate Amino Transferase 14 U/L (5-37); Bilirubin Total 0.4 mg/dL (0.0-1.0); Blood Urea Nitrogen 15 mg/dL (9-16); Calcium 9.7 mg/dL (8.4-10.2); Carbon Dioxide 28 mmol/L (22-29); Chloride 105 mmol/L (96-108); Cholesterol 133 mg/dL; Estimated Glomerular Filt Rate > 60; Glucose Fasting 143 mg/dL (60-99); HDL Cholesterol 35 mg/dL; LDL Cholesterol Calculated 71 mg/dl; Potassium 5.2 mmol/L (3.3-5.1); Sodium 142 mmol/L (135-145); Total Protein 6.3 g/dL (6.5-8.0); Triglycerides 139 mg/dL
[2022-04-12 12:32] LABS: Estimated Average Glucose 123 mg/dL; Hemoglobin A1c % 5.9 %
[2022-04-12 12:38] LABS: Free T4 (Free Thyroxine) 1.01 ng/dL (0.71-1.85); Thyroid Stimulating Hormone 1.67 uIU/mL (0.32-4.0)
[2022-04-12 12:46] LABS: Creatinine Urine 111.42 mg/dL
[2022-04-14 00:09] LABS: LDL Cholesterol Direct 80 mg/dL (<100)
== END 2022-04-12 08:46 | disposition home or self-care (01) ==
LOC: HO.HMGCLDS 08:45
PROVIDERS: PCP Internal Medicine; Visit Provider Internal Medicine
DX: E11.9 Type 2 diabetes mellitus without complications (principal); E04.1 Nontoxic single thyroid nodule
CPT/HCPCS: 36415; 80053; 80061; 82043; 83036; 83721; 84439; 84443

== ENCOUNTER 2022-04-14 10:32 | Outpatient (REF) | payer OTHER, SELFPAY | END 2022-04-14 10:33 | disposition home or self-care (01) | LOC: HO.HMGCLDS 10:32 | PROVIDERS: PCP Internal Medicine; Visit Provider Internal Medicine | DX: E11.9 Type 2 diabetes mellitus without complications (principal) | CPT/HCPCS: 36415; 84132 ==

== ENCOUNTER 2022-04-18 14:43 | Outpatient (REF) | payer OTHER, SELFPAY ==
[2022-04-18 16:39] LABS: Estimated Average Glucose 126 mg/dL
[2022-04-18 16:45] LABS: Alanine Aminotransferase 28 U/L (0-40); Albumin Level 4.4 g/dL (3.5-5.0); Alkaline Phosphatase 60 U/L (39-117); Anion Gap 14 (12-20); Aspartate Amino Transferase 16 U/L (5-37); Bilirubin Total 0.6 mg/dL (0.0-1.0); Blood Urea Nitrogen 13 mg/dL (9-16); Calcium 9.7 mg/dL (8.4-10.2); Carbon Dioxide 27 mmol/L (22-29); Chloride 104 mmol/L (96-108); Estimated Glomerular Filt Rate > 60; Glucose Random 109 mg/dL (60-115); Potassium 4.9 mmol/L (3.3-5.1); Sodium 140 mmol/L (135-145); Total Protein 6.9 g/dL (6.5-8.0)
== END 2022-04-18 14:44 | disposition home or self-care (01) ==
LOC: HO.LAB 14:43
PROVIDERS: PCP Internal Medicine; Visit Provider Internal Medicine
DX: E11.9 Type 2 diabetes mellitus without complications (principal); E04.1 Nontoxic single thyroid nodule; E78.5 Hyperlipidemia, unspecified; I10 Essential (primary) hypertension
CPT/HCPCS: 36415; 80053; 82947; 83036

== ENCOUNTER 2022-06-15 09:32 | Outpatient (REF) | payer OTHER, SELFPAY ==
[2022-06-15 11:20] LABS: MANUAL DIFF FLAG NO
[2022-06-15 11:47] LABS: Basophils Absolute Auto 0.1 X10*3/uL (0.0-0.2); Basophils Percent Auto 0.6 % (0-2); Eosinophils Absolute Auto 0.1 X10*3/uL (0.0-0.4); Eosinophils Percent Auto 1.4 % (0-4); Hematocrit 45.9 % (42.0-52.0); Hemoglobin 14.4 g/dl (14.0-18.0); Imm Gran Abs Auto 0.05 X10*3/uL (0.00-0.03); Imm Gran Pct Auto 0.6 % (0.0-0.4); Lymphocytes Absolute Auto 2.4 X10*3/uL (1.2-4.9); Mean Corpuscular HGB Conc 31.4 g/dl (31.0-36.0); Mean Platelet Volume 10.9 fL (9.4-12.4); Monocytes Absolute Auto 0.6 X10*3/uL (0.1-1.2); Monocytes Percent Auto 7.8 % (2-11); Neutrophils Absolute Auto 4.8 x10*3/uL (2.0-8.3); Neutrophils Percent Auto 59.6 % (45-73); Platelet Count 236 X10*3/uL (160-400); Red Blood Count 5.34 X10*6/uL (4.60-5.80); Red Cell Distribution Width 14.8 % (11.0-16.0); White Blood Count 8.1 X10*3/uL (4.8-10.8)
[2022-06-15 11:54] LABS: Estimated Average Glucose 126 mg/dL
[2022-06-15 12:05] LABS: Alanine Aminotransferase 32 U/L (0-40); Albumin Level 4.1 g/dL (3.5-5.0); Alkaline Phosphatase 55 U/L (39-117); Anion Gap 11 (12-20); Aspartate Amino Transferase 18 U/L (5-37); Bilirubin Total 0.5 mg/dL (0.0-1.0); Blood Urea Nitrogen 14 mg/dL (9-16); Calcium 9.3 mg/dL (8.4-10.2); Carbon Dioxide 30 mmol/L (22-29); Chloride 107 mmol/L (96-108); Cholesterol 154 mg/dL; Estimated Glomerular Filt Rate > 60; Glucose Fasting 156 mg/dL (60-99); HDL Cholesterol 38 mg/dL; LDL Cholesterol Calculated 94 mg/dl; Sodium 143 mmol/L (135-145); Total Protein 6.3 g/dL (6.5-8.0); Triglycerides 110 mg/dL
[2022-06-15 12:33] LABS: Creatinine Urine 146.67 mg/dL; Microalbum/Creatinine Ratio Ur 8.8 ug/mg cr
== END 2022-06-15 09:33 | disposition home or self-care (01) ==
LOC: HO.HMGCLDS 09:32
PROVIDERS: PCP Internal Medicine; Visit Provider Internal Medicine
DX: E11.9 Type 2 diabetes mellitus without complications (principal); E78.5 Hyperlipidemia, unspecified; I10 Essential (primary) hypertension
CPT/HCPCS: 36415; 80053; 80061; 82043; 83036; 85025

== ENCOUNTER 2022-10-17 10:03 | Outpatient (AMB) | payer OTHER, SELFPAY ==
--- NOTE | 2022-10-17 10:04 | MHC.OFFVIS ---
Intake Intake Visit Reasons: DM Intake Note: DM follow up visit. Assistant Auditor Required: No Allergies No Known Allergies Allergy (Verified 10/17/22 12:29) Medication List - Last Reconciled 10/17/22 by Jenna Lindsay, aspirin (Adult Low Dose Aspirin) 81 mg PO Q OTHER DAY atorvastatin 40 mg PO BEDTIME 30 days blood sugar diagnostic (OneTouch Verio test strips) test blood sugars once a day blood sugar diagnostic As directed blood-glucose meter (OneTouch Verio Flex Start kit) As directed blood-glucose meter (OneTouch Verio Flex Meter) As directed 1 time a day bupropion HCl 300 mg PO BEDTIME 90 days empagliflozin (Jardiance) 10 mg PO DAILY ketoconazole 2% 1 appl topical BID losartan 100 mg PO DAILY menthol-zinc oxide 0.44-20.6 % (Calmoseptine) 1 appl topical QID PRN metformin 1,000 mg PO BID metoprolol succinate ER 50 mg PO DAILY omeprazole 20 mg PO DAILY psyllium husk (with sugar) 3 gram/7 gram (Metamucil (with sugar)) 1 tbsp PO BID HPI HPI Comments History of Present Illness Details 61 YO M with PMHx T2DM, HLD, Depression who is seen in F/U for T2DM. Initially diagnosed with T2DM in 2010 on routine screening exam. Was initially started on treatment with Metformin in 2010. Current regimen Metformin 1000 mg PO BID and Jardiance 10 mg PO daily. Checks sugars a few times per week. Average sugar 118 with range 89-146. Most recent A1C: 5.9% 04/12/2022, unchanged from 5.8% 10/06/2021, down from 6.1% 06/14/2021, unchanged from 6.0% 03/31/2021. Reports low sugars never. Family history of T2DM in Mom, Father, Grandparents and Uncle. Has eyes checked yearly, last eye exam 08/28/2020. No retinopathy. Denies neuropathy, has never seen the research and evaluation analyst. Denies nephropathy, UA 17 04/12/2022. Had cough with Lisinopril 2.5 mg so this was stopped. On Losartan 100 mg PO daily. Has HLD, on Atorvastatin 40 mg PO qHS. LDL 80 04/12/2022. Denies history of CAD. Diet: Does have sweet tooth. Eats ice cream nightly. Weight: Weight is stable. Had diabetes education at the time of initial diagnosis. Has refused since. US Thyroid: 11/03/2021 Right Thyroid Lobe: 4.7 x 1.7 x 2.0 cm, volume 8.4 mL. Previously 4.4 x 1.7 x 1.3 cm, volume 5.3 mL. Parenchyma: The gland echotexture is homogeneous. Thyroid vascularity is normal. Left Thyroid Lobe: 4.0 x 1.6 x 1.5 cm, volume 5.0 mL. Previously 4.9 x 1.1 x 1.8 cm, volume 4.8 mL. Parenchyma: The gland echotexture is homogeneous. Thyroid vascularity is normal. Isthmus: 0.5 cm in maximum AP dimension. Previously 0.7 cm. Estimated total number of nodules greater than or equal to 1 cm: 0. 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 Location: Right mid. ?? ? Size: 0.5 x 0.4 x 0.5 cm, volume 0.05 mL. ?? ? Previously: 0.6 x 0.3 x 0.4 cm, volume 0.04 mL. ?? ? Nodule characteristics: ?? ? Composition: Spongiform (0). ?? ? Echogenicity: Anechoic (0). ?? ? Shape: Not taller than wide (0). ?? ? Margins: Smooth (0). ?? ? Echogenic Foci: None (0).? ACR TI-RADS total points: 0. Previous: 4. ?? ? ACR TI-RADS category: 1. Previous: 4. ? Significant change in size (>/= 20% in 2 dimensions and minimal increase of 2 mm or 50% or greater increase in volume): No change. ?? ? Change in features: Improved. ?? ? Change in ACR TI-RADS risk category: Improved. NODES: No lymphadenopathy is seen in the tissue surrounding the thyroid gland. Labs: Laboratory Tests 04/12/22 04/12/22 04/12/22 08:50 08:50 08:50 Sodium 142 Potassium Creatinine 1.05 Estimated GFR > 60 Hemoglobin A1c % 5.9 LDL Cholesterol Di rect 80 TSH 1.67 Free T4 1.01 Microalb/Creat Rat io 04/12/22 04/14/22 08:50 10:42 Sodium Potassium 5.0 Creatinine Estimated GFR Hemoglobin A1c % LDL Cholesterol Di rect TSH Free T4 Microalb/Creat Rat io 17.0 PFSH Medical History Abnormal colonoscopy Annual physical exam Anxiety Lin esophagus External hemorrhoids with complication GERD (gastroesophageal reflux disease) HTN (hypertension) Hyperlipemia Iron deficiency Iron deficiency anemia Panic disorder Rectal prolapse T2DM (type 2 diabetes mellitus) Thyroid nodule Surgical History History of back surgery History of esophagogastroduodenoscopy (EGD) History of hemorrhoidectomy History of surgery Hx of colonoscopy Family History Father Diabetes mellitus Alzheimer disease Mother Diabetes mellitus CVD (cardiovascular disease) Social History Housing: House Alcohol intake: current Alcohol intake frequency: holidays/special occasions only Patient Tobacco Use Status: Current someday Tobacco user Tobacco use type: Cigarette e-Cigarette/Vaping Use: Never Used Current occupational status: employed Cognitive needs: No Hearing needs: No Vision needs: Yes Review of Systems Const Denies excessive sweating, Denies fatigue, Denies headache(s), Denies weight gain and Denies weight loss Eyes Denies blurry vision and Denies diplopia ENT Denies change in voice, Denies dysphagia, Denies headache(s) and Denies hoarseness Card Denies chest pain, Denies irregular heart rhythm, Denies dyspnea and Reports other Resp Denies cough and Denies dyspnea GI Denies abdominal pain, Denies change in bowel habits, Denies dysphagia, Denies diarrhea and Denies nausea Musc Denies myalgias, Denies muscle cramps, Denies numbness and Denies tingling Skin/Breast Denies hirsutism and Denies alopecia Neuro Denies headache(s), Denies numbness and Denies tingling Psych Denies anxiety and Denies depression Endo Denies cold intolerance, Denies excessive sweating, Denies fatigue and Denies heat intolerance Regan/Lymph Denies easy bruising Assessment & Plan Assessment & Plan (1) T2DM (type 2 diabetes mellitus): Comment: f/u [facility] endo Code(s): E11.9 - Type 2 diabetes mellitus without complications Plan: Patient with T2DM. A1C at goal. Will not make any changes to his regimen at this time. He will continue with Metformin 1000 mg PO BID and Jardiance 10 mg PO daily. I advised that he no longer requires Endocrine F/U for his Diabetes and this can be managed by his PCP. He reports anxiety about not following with Endocrinology, and prefers to continue to follow with us. Plan for now is to repeat labs and he will bring his meter for review. I will call with adjustments. All of his questions were answered today. He is in agreement with this plan of care. The importance of adherence to prescribed regimen was discussed with the patient including checking finger sticks 3-4 times per day, using medication as prescribed, monitoring for hypoglycemia and treating any episode of hypoglycemia according to the rule of 15's. The signs and symptoms of hypoglycemia were reviewed in detail, as well as the rule of 15's to treat. Proper foot care was also discussed with the patient, and the importance of yearly dilated eye exam. The patient was asked to have copy of eye exam sent to our office for review. I spent 20 minutes in reviewing the record, seeing the patient and documenting in the medical record, including 5 minutes on the phone with the patient. (2) HTN (hypertension): Code(s): I10 - Essential (primary) hypertension Plan: UAC at goal. Will continue with Losartan 100 mg PO daily. (3) HLD (hyperlipidemia): Code(s): E78.5 - Hyperlipidemia, unspecified Plan: LDL at goal. No changes. (4) Thyroid nodule: Code(s): E04.1 - Nontoxic single thyroid nodule Plan: Patient with a subcentimeter thyroid nodule in the RMP. We did discuss that all thyroid nodules contain a 5-10% risk of harboring a malignancy, and that the US images can provide additional data which can make us suspect that a malignancy is more likely. We did discuss the need for FNA biopsy of the thyroid in order to determine if cancer is contained within. His nodule does not meet indication for FNA biopsy at this time. We will continue to monitor with a yearly surveillance US. Due now. I have ordered his surveillance scan. Orders: Orders US biopsy thyroid Today E04.1 - Nontoxic single thyroid nodule Comprehensive Met. Panel Today E11.9 - Type 2 diabetes mellitus without complications Hemoglobin A1c Today E11.9 - Type 2 diabetes mellitus without complications LDL Cholesterol Direct Today E11.9 - Type 2 diabetes mellitus without complications Lipid Panel Today E11.9 - Type 2 diabetes mellitus without complications Microalbumin, Random (w Creat) Today E11.9 - Type 2 diabetes mellitus without complications Free T4 (Free Thyroxine) Today E04.1 - Nontoxic single thyroid nodule Thyroid Stimulating Hormone Today E04.1 - Nontoxic single thyroid nodule Telehealth Telehealth Location of provider rendering services: practice address Location of patient: address on file Patient Identification confirmed using: Name, : Yes Telehealth method: voice only Patient verbally consented to treatment: Yes Patient verbally consented to billing insurance company: Yes Patient informed of any privacy concerns related to visit: Yes Coding Level of Care Code Tele Est Pt Level 3 (90078) Diagnoses T2DM (type 2 diabetes mellitus) E11.9 HTN (hypertension) I10 HLD (hyperlipidemia) E78.5 Thyroid nodule E04.1
== END 2022-10-17 15:00 | disposition home or self-care (01) ==
LOC: HO.ENCR 10:03
PROVIDERS: PCP Internal Medicine; Visit Provider Internal Medicine
DX: E11.9 Type 2 diabetes mellitus without complications (principal); I10 Essential (primary) hypertension; E78.5 Hyperlipidemia, unspecified; E04.1 Nontoxic single thyroid nodule
CPT/HCPCS: 99213

== ENCOUNTER → 2022-10-17 10:03 | Outpatient (BNVA) | payer OTHER, SELFPAY | PROVIDERS: PCP Internal Medicine; Visit Provider Internal Medicine ==

== ENCOUNTER 2022-10-18 08:43 | Outpatient (REF) | payer OTHER, SELFPAY ==
[2022-10-18 09:27] LABS: Estimated Average Glucose 117 mg/dL; Hemoglobin A1c % 5.7 %
[2022-10-18 10:48] LABS: Free T4 (Free Thyroxine) 0.94 ng/dL (0.71-1.85); Thyroid Stimulating Hormone 1.37 uIU/mL (0.32-4.0)
[2022-10-18 11:22] LABS: Alanine Aminotransferase 25 U/L (0-40); Albumin Level 4.2 g/dL (3.5-5.0); Alkaline Phosphatase 50 U/L (39-117); Anion Gap 15 (12-20); Aspartate Amino Transferase 23 U/L (5-37); Bilirubin Total 0.5 mg/dL (0.0-1.0); Blood Urea Nitrogen 12 mg/dL (9-16); Calcium 9.3 mg/dL (8.4-10.2); Carbon Dioxide 23 mmol/L (22-29); Chloride 107 mmol/L (96-108); Cholesterol 131 mg/dL; Estimated Glomerular Filt Rate > 60; Glucose Random 139 mg/dL (60-115); HDL Cholesterol 32 mg/dL; LDL Cholesterol Calculated 78 mg/dl; Potassium 4.7 mmol/L (3.3-5.1); Sodium 140 mmol/L (135-145); Total Protein 6.8 g/dL (6.5-8.0); Triglycerides 106 mg/dL
[2022-10-18 11:42] LABS: Creatinine Urine 122.93 mg/dL; Microalbum/Creatinine Ratio Ur 11.3 ug/mg cr
[2022-10-20 08:18] LABS: LDL Cholesterol Direct 81 mg/dL (<100)
== END 2022-10-18 08:44 | disposition home or self-care (01) ==
LOC: HO.LAB 08:43
PROVIDERS: PCP Internal Medicine; Visit Provider Internal Medicine
DX: E04.1 Nontoxic single thyroid nodule (principal); E11.9 Type 2 diabetes mellitus without complications
CPT/HCPCS: 36415; 80053; 80061; 82043; 83036; 83721; 84439; 84443

== ENCOUNTER 2023-01-12 13:23 | Outpatient (REF) | payer OTHER, SELFPAY ==
--- NOTE | ~2023-01-12 | US_ITS ---
EXAMINATION: US THYROID CLINICAL INFORMATION: Nontoxic multinodular goiter. COMPARISON: Ultrasound soft tissue head/neck thyroid dated 11/03/2021 and 10/28/2020 TECHNIQUE: Linear transducer grayscale and color Doppler examination with attention to the region of the thyroid. Technically limited study secondary to body habitus/deep thyroid. FINDINGS: SIZE: Measurements of the thyroid lobes and nodules are given in sagittal, anteroposterior and transverse dimensions respectively. Right Thyroid Lobe: 4.8 x 1.5 x 1.7 cm, volume 5.9 mL. Previously 4.7 x 1.7 x 2.0 cm, volume 8.4 mL. Parenchyma: The gland echotexture is homogeneous. Thyroid vascularity is normal. Left Thyroid Lobe: 3.9 x 1.8 x 1.9 cm, volume 6.2 mL. Previously 4.0 x 1.6 x 1.5 cm, volume 5.0 mL. Parenchyma: The gland echotexture is homogeneous. Thyroid vascularity is normal. Isthmus: 0.5 cm in maximum AP dimension. Previously 0.5 cm. Estimated total number of nodules greater than or equal to 1 cm: 0. Advertising Sales Assistant nodules are described as follows: 1. Location: Right mid. Size: 0.6 x 0.4 x 0.5 cm, volume 0.05 mL. Previously: 0.5 x 0.4 x 0.5 cm, volume 0.05 mL. Nodule characteristics: Composition: Spongiform (0). Echogenicity: Anechoic (0). Shape: Not taller than wide (0). Margins: Smooth (0). Echogenic Foci: None (0). ACR TI-RADS total points: 0 Previous: 0 ACR TI-RADS category: 1 Previous: 1 Significant change in size (>/= 20% in 2 dimensions and minimal increase of 2 mm or 50% or greater increase in volume): No Change in features: No Change in ACR TI-RADS risk category: No NODES: No lymphadenopathy is seen in the tissue surrounding the thyroid gland. US/US thyroid IMPRESSION: 1. Nodule in the right renal midportion demonstrates slight increase maximum dimension measuring 0.6 cm with a stable TI-RADS Category 1. Nodule does not require follow-up. 2. Bilateral thyroid lobes demonstrate homogeneous echotexture with normal vascularity. 3. No lymphadenopathy noted. ACR TI-RADS RECOMMENDATION REFERENCE: Ultrasound-guided fine-needle aspiration, follow up ultrasound, no further followup. * TR1 (0 point): No FNA or followup
== END 2023-01-12 13:24 | disposition home or self-care (01) ==
LOC: HO.US 13:23
PROVIDERS: PCP Internal Medicine; Visit Provider Internal Medicine Endocrinology, Diabetes & Metabolism
DX: E04.2 Nontoxic multinodular goiter (principal)
CPT/HCPCS: 76536

== ENCOUNTER 2023-02-13 08:34 | Outpatient (REF) | payer OTHER, SELFPAY ==
[2023-02-13 11:29] LABS: MANUAL DIFF FLAG NO
[2023-02-13 11:58] LABS: Alanine Aminotransferase 24 U/L (0-40); Alkaline Phosphatase 45 U/L (39-117); Anion Gap 13 (12-20); Aspartate Amino Transferase 16 U/L (5-37); Bilirubin Total 0.4 mg/dL (0.0-1.0); Blood Urea Nitrogen 13 mg/dL (9-16); Calcium 9.2 mg/dL (8.4-10.2); Carbon Dioxide 26 mmol/L (22-29); Chloride 108 mmol/L (96-108); Cholesterol 125 mg/dL (<200); Estimated Glomerular Filt Rate > 60; Glucose Fasting 141 mg/dL (60-99); HDL Cholesterol 35 mg/dL (>40); LDL Cholesterol Calculated 72 mg/dL (<100); Potassium 4.6 mmol/L (3.3-5.1); Sodium 142 mmol/L (135-145); Total Protein 6.4 g/dL (6.5-8.0); Triglycerides 94 mg/dL (<150)
[2023-02-13 12:03] LABS: Basophils Percent Auto 0.5 % (0-2); Eosinophils Absolute Auto 0.1 X10*3/uL (0.0-0.4); Eosinophils Percent Auto 1.1 % (0-4); Hemoglobin 14.3 g/dl (14.0-18.0); Imm Gran Abs Auto 0.04 X10*3/uL (0.00-0.03); Imm Gran Pct Auto 0.5 % (0.0-0.4); Lymphocytes Absolute Auto 2.1 X10*3/uL (1.2-4.9); Lymphocytes Percent Auto 27.8 % (20-40); Mean Corpuscular HGB Conc 32.5 g/dl (31.0-36.0); Mean Corpuscular Hemoglobin 27.6 pg (27.0-33.0); Mean Corpuscular Volume 84.9 fL (80.0-98.0); Mean Platelet Volume 11.1 fL (9.4-12.4); Monocytes Absolute Auto 0.6 X10*3/uL (0.1-1.2); Monocytes Percent Auto 8.5 % (2-11); Neutrophils Absolute Auto 4.5 x10*3/uL (2.0-8.3); Neutrophils Percent Auto 61.6 % (45-73); Platelet Count 226 X10*3/uL (160-400); Red Blood Count 5.18 X10*6/uL (4.60-5.80); Red Cell Distribution Width 15.2 % (11.0-16.0); White Blood Count 7.4 X10*3/uL (4.8-10.8)
[2023-02-13 12:06] LABS: Estimated Average Glucose 128 mg/dL; Hemoglobin A1c % 6.1 % (<6.0)
[2023-02-13 12:16] LABS: Creatinine Urine 108.51 mg/dL; Microalbum/Creatinine Ratio Ur 4.6 ug/mg cr (<30)
[2023-02-13 12:21] LABS: TSH reflex Free T4 1.55 uIU/mL (0.32-4.0)
== END 2023-02-13 08:35 | disposition home or self-care (01) ==
LOC: HO.HMGCLDS 08:34
PROVIDERS: PCP Internal Medicine; Visit Provider Internal Medicine
DX: E78.5 Hyperlipidemia, unspecified (principal); E11.9 Type 2 diabetes mellitus without complications; E04.1 Nontoxic single thyroid nodule; I10 Essential (primary) hypertension
CPT/HCPCS: 36415; 80053; 80061; 82043; 82570; 83036; 84443; 85025

== ENCOUNTER 2023-02-17 12:26 | Outpatient (AMB) | payer OTHER, SELFPAY ==
--- NOTE | 2023-02-17 12:31 | A.OFFPC_ITS ---
Vital Signs 02/17/23 12:35 Height 5 ft 7 in Weight 242 lb 6 oz BMI 38.0 BP 130/64 Blood Pressure Location Rt brachial Position Sitting Pulse 80 Pulse Source Pulse Oximeter Pulse Oximetry (%) 98 Oxygen Delivery Method Room Air Intake Visit Reasons: elevated blood sugars Intake Note: Pt is here to follow up for lab results Allergies No Known Allergies Allergy (Verified 02/17/23 12:37) Medication List - Last Reconciled 02/17/23 by Oralia Smith MD aspirin (Adult Low Dose Aspirin) 81 mg PO Q OTHER DAY atorvastatin 40 mg PO BEDTIME 30 days blood sugar diagnostic (AriadNEXTTouch Verio test strips) test blood sugars once a day blood sugar diagnostic As directed blood-glucose meter (AriadNEXTTouch Verio Flex Start kit) As directed blood-glucose meter (AriadNEXTTouch Verio Flex Meter) As directed 1 time a day bupropion HCl 300 mg PO BEDTIME 90 days cholecalciferol (vitamin D3) 50 mcg PO DAILY empagliflozin (Jardiance) 10 mg PO DAILY losartan 100 mg PO DAILY metformin 1,000 mg PO BID metoprolol succinate ER 50 mg PO DAILY omeprazole 20 mg PO DAILY Tobacco use date assessed: 02/17/23 Dental Screening Dental Screen Date: 02/17/23 Did you have a dental visit in the last 12 months?: No Did you have a dental problem in the last 6 months where you did not have access to dental care?: No Was dental information given to patient?: No HPI elevated blood sugars HPI Details Pt presents for DM 2, HTN, hyperlipid, stable on meds. [facility] Medical History (Updated 02/17/23 @ 13:33 by Oralia Smith MD) Iron deficiency Hyperlipemia External hemorrhoids with complication Rectal prolapse Annual physical exam Abnormal colonoscopy Anxiety Lin esophagus Iron deficiency anemia GERD (gastroesophageal reflux disease) Panic disorder Thyroid nodule T2DM (type 2 diabetes mellitus) HTN (hypertension) Surgical History History of surgery History of hemorrhoidectomy History of back surgery History of esophagogastroduodenoscopy (EGD) Hx of colonoscopy Family History Father Diabetes mellitus Alzheimer disease Mother Diabetes mellitus CVD (cardiovascular disease) Social History Housing: House Alcohol intake: current Alcohol intake frequency: holidays/special occasions only Comment: previously medicated with ketorolac and oxycodone Patient Tobacco Use Status: Current someday Tobacco user Tobacco use type: Cigarette e-Cigarette/Vaping Use: Never Used Current occupational status: employed Cognitive needs: No Hearing needs: No Vision needs: Yes Questionnaire Thrive Questionnaire Date Thrive assessed: 06/22/22 GWEN-7 AMB Questionnaire GWEN-7 Date GWEN - 7 assessed: 06/22/22 Source: Developed by Drs. Mihir Christopher, Evelin Barr, Nato Whitley and colleagues, with an educational cheryl from [employer]. Review of Systems Const All systems reviewed & are unremarkable except as noted in HPI and below Reports no additional complaints Eyes Reports no additional complaints ENT Reports no additional complaints Card Reports no additional complaints Resp Reports no additional complaints GI Reports no additional complaints Reports no additional complaints Musc Reports no additional complaints Physical exam (Primary Care) Vital Signs: Last Vital Signs Pulse 80 02/17/23 12:35 BP 130/64 02/17/23 12:35 Pulse Ox 98 02/17/23 12:35 Oxygen Delivery Method Room Air 02/17/23 12:35 BMI result Body Mass Index 38.0 Tobacco/Smoking Status: Tobacco use Status Tobacco use date assessed 02/17/23 02/17/23 12:41 Patient Tobacco Use Status Current someday Tobacco 02/17/23 12:31 Tobacco use type Cigarette 02/17/23 12:31 e-Cigarette/Vaping Use Never Used 02/17/23 12:31 Thrive Assessment: Date of Thrive Assessment Date Thrive assessed 06/22/22 02/17/23 12:31 Const General: no acute distress HENMT Throat: Yes posterior oropharynx normal Neck Neck: Yes supple Resp Effort & Inspection: normal respiratory effort Auscultation: clear to auscultation bilaterally Cardio Rhythm: regular rhythm Heart sounds: S1 normal heart sound present and S2 normal heart sound present GI Inspection: Yes normal to inspection Palpation (GI): Soft to palpation Percussion: Yes normal to percussion Auscultation: normal bowel sounds Assessment and Plan Assessment & Plan (1) T2DM (type 2 diabetes mellitus): Comment: f/u [facility] [place] endo Code(s): E11.9 - Type 2 diabetes mellitus without complications Plan: A1C is 6.1, pt increased Jardiance to 25 mg, ADA diet, weight loss, exercise (2) Overweight: Code(s): E66.3 - Overweight Plan: weight loss discussed (3) Thyroid nodule: Comment: US 01/02 6 mm R lobe stable, getting annual US Code(s): E04.1 - Nontoxic single thyroid nodule Plan: annual US (4) HTN (hypertension): Code(s): I10 - Essential (primary) hypertension Plan: CONT MEDS (5) Hyperlipemia: Code(s): E78.5 - Hyperlipidemia, unspecified Plan: cont statin Orders: Orders Comprehensive [place]. Panel Fast 4 Months E11.9 - Type 2 diabetes mellitus without complications, E78.5 - Hyperlipidemia, unspecified, I10 - Essential (primary) hypertension, Z00.00 - Encounter for general adult medical examination without abnormal findings Complete Blood Count Auto Diff 4 Months E11.9 - Type 2 diabetes mellitus without complications, E78.5 - Hyperlipidemia, unspecified, I10 - Essential (primary) hypertension, Z00.00 - Encounter for general adult medical examination without abnormal findings Lipid Panel 4 Months E11.9 - Type 2 diabetes mellitus without complications, E78.5 - Hyperlipidemia, unspecified, I10 - Essential (primary) hypertension, Z00.00 - Encounter for general adult medical examination without abnormal findings Hemoglobin A1c 4 Months E11.9 - Type 2 diabetes mellitus without complications, E78.5 - Hyperlipidemia, unspecified, I10 - Essential (primary) hypertension, Z00.00 - Encounter for general adult medical examination without abnormal findings Microalbumin, Random (w Creat) 4 Months E11.9 - Type 2 diabetes mellitus without complications, E78.5 - Hyperlipidemia, unspecified, I10 - Essential (primary) hypertension, Z00.00 - Encounter for general adult medical examination without abnormal findings Medications: New empagliflozin (Jardiance) 25 mg PO DAILY 90 tabs 3RF Coding Level of Care Code Est Pt Level 4 (72355) Diagnoses T2DM (type 2 diabetes mellitus) E11.9 Overweight E66.3 Thyroid nodule E04.1 HTN (hypertension) I10 Hyperlipemia E78.5
[2023-02-17 12:35] VITALS: BP 130/64; PULSE 80; O2SAT 98; BMI 38.0
== END 2023-02-17 13:40 | disposition home or self-care (01) ==
PROVIDERS: PCP Internal Medicine; Visit Provider Internal Medicine
DX: E11.9 Type 2 diabetes mellitus without complications (principal); E66.3 Overweight; E04.1 Nontoxic single thyroid nodule; I10 Essential (primary) hypertension; E78.5 Hyperlipidemia, unspecified
CPT/HCPCS: 99214

== ENCOUNTER 2023-03-29 14:35 | Outpatient (AMB) | payer OTHER, SELFPAY ==
[2023-03-29 14:36] VITALS: BP 128/68; PULSE 84; BMI 37.2
--- NOTE | 2023-03-29 14:36 | A.OFFVIS_ITS ---
Intake Vital Signs 03/29/23 14:36 Height 5 ft 7 in Weight 237 lb 7.005 oz BMI 37.2 BP 128/68 Blood Pressure Location Lt brachial Position Sitting Pulse 84 Pulse Source Pulse Oximeter Intake Visit Reasons: DM-confirmed Intake Note: Patient present today to follow up on Type 2 Diabetes Mellitus. Last seen by Dr. Mcdermott on 10/17/2022. 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 Required: No Accompanied by: Self / Same As Patient Allergies No Known Allergies Allergy (Verified 03/29/23 14:41) Medication List - Last Reconciled 03/29/23 by Mihir Radford MD aspirin (Adult Low Dose Aspirin) 81 mg PO Q OTHER DAY atorvastatin 40 mg PO BEDTIME 30 days blood sugar diagnostic ([employer] Verio test strips) test blood sugars once a day blood sugar diagnostic As directed blood-glucose meter ([employer] Verio Flex Start kit) As directed blood-glucose meter ([employer]Touch Verio Flex Meter) As directed 1 time a day bupropion HCl 300 mg PO BEDTIME 90 days cholecalciferol (vitamin D3) 50 mcg PO DAILY empagliflozin (Jardiance) 10 mg PO DAILY empagliflozin (Jardiance) 25 mg PO DAILY losartan 100 mg PO DAILY metformin 1,000 mg PO BID metoprolol succinate ER 50 mg PO DAILY omeprazole 20 mg PO DAILY HPI HPI Comments History of Present Illness Details 62 YO M with PMHx T2DM, HLD, Depression who is seen in F/U for T2DM. The abhijeet flores last saw Dr. Mcdermott on 10/17/2022 Initially diagnosed with T2DM in 2010 on routine screening exam. Was initially started on treatment with Metformin in 2010. Current regimen Metformin 1000 mg PO BID and Jardiance 25 mg PO daily. Checks sugars a few times per week. Average sugar 157 with range 1429-176. Most recent A1C: 5.9% 04/12/2022, unchanged from 5.8% 10/06/2021, down from 6.1% 06/14/2021, unchanged from 6.0% 03/31/2021. Reports low sugars never. Family history of T2DM in Mom, Father, Grandparents and Uncle. Has eyes checked yearly, last eye exam 03/20/2023 . No retinopathy. Denies neuropathy, has never seen the food safety manager. Denies nephropathy, [facility] 17 04/12/2022. Had cough with Lisinopril 2.5 mg so this was stopped. On Losartan 100 mg PO daily. Has HLD, on Atorvastatin 40 mg PO qHS. LDL 80 04/12/2022. Denies history of CAD. Diet: Does have sweet tooth. Eats ice cream nightly. Weight: Weight is stable. Had diabetes education at the time of initial diagnosis. Has refused since. US Thyroid: 11/03/2021 Right Thyroid Lobe: 4.7 x 1.7 x 2.0 cm, volume 8.4 mL. Previously 4.4 x 1.7 x 1.3 cm, volume 5.3 mL. Parenchyma: The gland echotexture is homogeneous. Thyroid vascularity is normal. Left Thyroid Lobe: 4.0 x 1.6 x 1.5 cm, volume 5.0 mL. Previously 4.9 x 1.1 x 1.8 cm, volume 4.8 mL. Parenchyma: The gland echotexture is homogeneous. Thyroid vascularity is normal. Isthmus: 0.5 cm in maximum AP dimension. Previously 0.7 cm. Estimated total number of nodules greater than or equal to 1 cm: 0. Terminal Operations Supervisor nodules are described as follows: 1.? Location: Right mid. ?? ? Size: 0.5 x 0.4 x 0.5 cm, volume 0.05 mL. ?? ? Previously: 0.6 x 0.3 x 0.4 cm, volume 0.04 mL. ?? ? Nodule characteristics: ?? ? Composition: Spongiform (0). ?? ? Echogenicity: Anechoic (0). ?? ? Shape: Not taller than wide (0). ?? ? Margins: Smooth (0). ?? ? Echogenic Foci: None (0).? ACR TI-RADS total points: 0. Previous: 4. ?? ? ACR TI-RADS category: 1. Previous: 4. ? Significant change in size (>/= 20% in 2 dimensions and minimal increase of 2 mm or 50% or greater increase in volume): No change. ?? ? Change in features: Improved. ?? ? Change in ACR TI-RADS risk category: Improved. NODES: No lymphadenopathy is seen in the tissue surrounding the thyroid gland. Labs: Laboratory Tests 04/12/22 04/12/22 04/12/22 08:50 08:50 08:50 Sodium 142 Potassium Creatinine 1.05 Estimated GFR > 60 Hemoglobin A1c % 5.9 LDL Cholesterol Di rect 80 TSH 1.67 Free T4 1.01 Microalb/Creat Rat io 04/12/22 04/14/22 08:50 10:42 Sodium Potassium 5.0 Creatinine Estimated GFR Hemoglobin A1c % LDL Cholesterol Di rect TSH Free T4 Microalb/Creat Rat io 17.0 [facility] Medical History (Updated 02/17/23 @ 13:33 by Oralia Smith MD) Iron deficiency Hyperlipemia External hemorrhoids with complication Rectal prolapse Annual physical exam Abnormal colonoscopy Anxiety Lin esophagus Iron deficiency anemia GERD (gastroesophageal reflux disease) Panic disorder Thyroid nodule T2DM (type 2 diabetes mellitus) HTN (hypertension) Surgical History History of surgery History of hemorrhoidectomy History of back surgery History of esophagogastroduodenoscopy (EGD) Hx of colonoscopy Family History Father Diabetes mellitus Alzheimer disease Mother Diabetes mellitus CVD (cardiovascular disease) Social History Housing: House Alcohol intake: current Alcohol intake frequency: holidays/special occasions only Comment: previously medicated with ketorolac and oxycodone Patient Tobacco Use Status: Current someday Tobacco user Tobacco use type: Cigarette e-Cigarette/Vaping Use: Never Used Current occupational status: employed Cognitive needs: No Hearing needs: No Vision needs: Yes Physical Exam Vital Signs: Last Vital Signs Pulse 84 03/29/23 14:36 BP 128/68 03/29/23 14:36 BMI result Body Mass Index 37.2 Absence of Cushingoid features. Absence of acromegalic features. Neck exam reveals nl size thyroid about 15 gms. No thyroid nodules palpable. No carotid bruits present. Lungs CTA. Heart S1 S2, Reg R/R. No M/R/ G. Skin exam reveals absence of vitiligo or acanthosis nigricans. Abdominal exam reveals Soft NT/ND with NA BS. No organomegaly present. Neck Other: . Extrem Other: Visual exam of foot performed. No ulcerations or open lesions. No onchomycosis, no callouses.Pulses 2 + distally Sensation intact to monofilament exam. Vibr atory sensation sensed is intact with 128 Hz tuning fork Assessment & Plan Assessment & Plan (1) T2DM (type 2 diabetes mellitus): Comment: f/u [facility] endo Code(s): E11.9 - Type 2 diabetes mellitus without complications Plan: This is a 62-year-old male with history of type 2 diabetes being treated metformin and Jardiance with excellent glycemic control and no known microvascular or macrovascular complications Plan is to continue the current therapy. At this point, patient returned back to the care of his primary care provider and returned back to endocrinology should his HbA1c deteriorate Coding Level of Care Code Est Pt Level 4 (19042) Diagnoses T2DM (type 2 diabetes mellitus) E11.9
[2023-03-29 14:48] LABS: Glucose, Whole Blood 146 mg/dL (60-115)
== END 2023-03-29 15:06 | disposition home or self-care (01) ==
PROVIDERS: PCP Internal Medicine; Visit Provider Internal Medicine Endocrinology, Diabetes & Metabolism
DX: E11.9 Type 2 diabetes mellitus without complications (principal)
CPT/HCPCS: 99214

== ENCOUNTER → 2023-03-29 14:35 | Outpatient (BNVA) | payer OTHER, SELFPAY | PROVIDERS: PCP Internal Medicine; Visit Provider Internal Medicine Endocrinology, Diabetes & Metabolism | DX: E11.9 Type 2 diabetes mellitus without complications (principal); Z79.84 Long term (current) use of oral hypoglycemic drugs | CPT/HCPCS: 82947; 99212 ==

== ENCOUNTER 2023-06-21 09:34 | Outpatient (REF) | payer OTHER, SELFPAY ==
[2023-06-21 10:20] LABS: MANUAL DIFF FLAG NO
[2023-06-21 10:46] LABS: Basophils Absolute Auto 0.1 X10*3/uL (0.0-0.2); Basophils Percent Auto 0.6 % (0-2); Eosinophils Absolute Auto 0.1 X10*3/uL (0.0-0.4); Eosinophils Percent Auto 1.5 % (0-4); Hematocrit 46.9 % (42.0-52.0); Hemoglobin 14.8 g/dl (14.0-18.0); Imm Gran Abs Auto 0.06 X10*3/uL (0.00-0.03); Imm Gran Pct Auto 0.7 % (0.0-0.4); Lymphocytes Absolute Auto 2.4 X10*3/uL (1.2-4.9); Lymphocytes Percent Auto 29.6 % (20-40); Mean Corpuscular HGB Conc 31.6 g/dl (31.0-36.0); Mean Corpuscular Hemoglobin 26.4 pg (27.0-33.0); Mean Corpuscular Volume 83.8 fL (80.0-98.0); Mean Platelet Volume 10.1 fL (9.4-12.4); Monocytes Absolute Auto 0.6 X10*3/uL (0.1-1.2); Monocytes Percent Auto 7.8 % (2-11); Neutrophils Absolute Auto 4.9 x10*3/uL (2.0-8.3); Neutrophils Percent Auto 59.8 % (45-73); Platelet Count 217 X10*3/uL (160-400); Red Cell Distribution Width 15.3 % (11.0-16.0); White Blood Count 8.2 X10*3/uL (4.8-10.8)
[2023-06-21 11:43] LABS: Estimated Average Glucose 137 mg/dL; Hemoglobin A1c % 6.4 % (<6.0)
[2023-06-21 14:36] LABS: Alanine Aminotransferase 31 U/L (0-40); Albumin Level 4.1 g/dL (3.5-5.0); Alkaline Phosphatase 51 U/L (39-117); Anion Gap 13 (12-20); Aspartate Amino Transferase 15 U/L (5-37); Bilirubin Total 0.4 mg/dL (0.0-1.0); Blood Urea Nitrogen 16 mg/dL (9-16); Calcium 8.8 mg/dL (8.4-10.2); Carbon Dioxide 25 mmol/L (22-29); Chloride 107 mmol/L (96-108); Cholesterol 153 mg/dL (<200); Estimated Glomerular Filt Rate > 60; Glucose Fasting 154 mg/dL (60-99); HDL Cholesterol 35 mg/dL (>40); LDL Cholesterol Calculated 95 mg/dL (<100); Potassium 4.3 mmol/L (3.3-5.1); Sodium 141 mmol/L (135-145); Total Protein 6.6 g/dL (6.5-8.0); Triglycerides 118 mg/dL (<150)
[2023-06-21 14:59] LABS: Creatinine Urine 89.06 mg/dL; Microalbum/Creatinine Ratio Ur 6.7 ug/mg cr (<30)
== END 2023-06-21 09:35 | disposition home or self-care (01) ==
LOC: HO.HMGCLDS 09:34
PROVIDERS: PCP Internal Medicine; Visit Provider Internal Medicine
DX: Z00.00 Encounter for general adult medical examination without abnormal findings (principal); E78.5 Hyperlipidemia, unspecified; E11.9 Type 2 diabetes mellitus without complications; I10 Essential (primary) hypertension
CPT/HCPCS: 36415; 80053; 80061; 82043; 82570; 83036; 85025

== ENCOUNTER 2023-06-26 11:34 | Outpatient (AMB) | payer OTHER, SELFPAY ==
[2023-06-26 11:50] VITALS: BP 110/66; PULSE 75; O2SAT 98; BMI 38.1
--- NOTE | 2023-06-26 11:50 | A.OFFPC_ITS ---
Vital Signs 06/26/23 11:50 Height 5 ft 7 in Weight 243 lb BMI 38.1 BP 110/66 Blood Pressure Location Lt brachial Position Sitting Pulse 75 Pulse Source Pulse Oximeter Pulse Oximetry (%) 98 Oxygen Delivery Method Room Air Intake Visit Reasons: Annual PE Intake Note: Pt is here today for PE. Allergies No Known Allergies Allergy (Verified 06/26/23 11:50) Medication List - Last Reconciled 06/26/23 by Oralia Smith MD aspirin (Adult Low Dose Aspirin) 81 mg PO Q OTHER DAY atorvastatin 40 mg PO BEDTIME blood sugar diagnostic ([employer] Ver[employer] test strips) test blood sugars once a day blood sugar diagnostic As directed blood-glucose meter ([employer] Ver[employer] Flex Start kit) As directed blood-glucose meter ([employer] Ver[employer] Flex Meter) As directed 1 time a day bupropion HCl XL 300 mg PO BEDTIME 90 days cholecalciferol (vitamin D3) 50 mcg PO DAILY empagliflozin (Jardiance) 25 mg PO DAILY losartan 100 mg PO DAILY metformin 1,000 mg PO BID metoprolol succinate ER 50 mg PO DAILY omeprazole 20 mg PO DAILY Tobacco use date assessed: 06/26/23 Dental Screening Dental Screen Date: 06/26/23 Did you have a dental visit in the last 12 months?: Yes Did you have a dental problem in the last 6 months where you did not have access to dental care?: No Was dental information given to patient?: Patient has dentist HPI Annual PE HPI Details Pt presents for PE. PFSH Medical History Iron deficiency Hyperlipemia External hemorrhoids with complication Rectal prolapse Annual physical exam Abnormal colonoscopy Anxiety Lin esophagus Iron deficiency anemia GERD (gastroesophageal reflux disease) Panic disorder Thyroid nodule T2DM (type 2 diabetes mellitus) HTN (hypertension) Surgical History History of surgery History of hemorrhoidectomy History of back surgery History of esophagogastroduodenoscopy (EGD) Hx of colonoscopy Family History Father Diabetes mellitus Alzheimer disease Mother Diabetes mellitus CVD (cardiovascular disease) Social History Housing: House Alcohol intake: current Alcohol intake frequency: holidays/special occasions only Comment: previously medicated with ketorolac and oxycodone Patient Tobacco Use Status: Current someday Tobacco user Tobacco use type: Cigarette e-Cigarette/Vaping Use: Never Used Second Hand Smoke Exposure: No Current occupational status: employed Cognitive needs: No Hearing needs: No Vision needs: Yes Questionnaire PHQ-9 Over the last 2 weeks, how often have you been bothered by any of the following problems? 1. Little interest or pleasure in doing things: several days 2. Feeling down, depressed, or hopeless: several days 3. Trouble falling or staying asleep, or sleeping too much: nearly every day 4. Feeling tired or having little energy: several days 5. Poor appetite or overeating: not at all 6. Feeling bad about yourself - or that you are a failure or have let yourself or your family down: several days 7. Trouble concentrating on things, such as reading the newspaper or watching television: not at all 8. Moving or speaking so slowly that other people could have noticed. Or the opposite - being so fidgety or restless that you have been moving around a lot more than usual: not at all 9. Thoughts that you would be better off or of hurting yourself in some way: not at all Total score: 7 Depression Screening Interpretation: Negative Depression Screening Done: Yes Source: Developed by Drs. Mihir Christopher, Evelin Barr, Nato Whitley and colleagues, with an educational cheryl from [employer]. Thrive Questionnaire Date Thrive assessed: 06/26/23 I am a: Patient What is your living situation today?: I have a steady place to live Within the past 12 months, did the food you bought not last and you didn't have the money to get more?: Never true Within the past 12 months, did you worry whether your food would run out before you got money to buy more?: Never true Do you have trouble paying for medicines?: No Do you have trouble getting transportation to medical appointments?: No Do you have trouble paying your heating and electricity bill?: No Do you have trouble taking care of your child, family member or friend?: No Do you have trouble with day-to-day activities such as bathing, preparing meals, shopping, managing finances, etc.?: No Are you currently unemployed and looking for a job?: No Are you interested in more education?: No Please select the resources that you would like help with: None THRIVE Score: 0 AUDIT C Alcohol Use Questionnaire (AUDIT-C) 1. How often do you have a drink containing alcohol?: Monthly or less 2. How many drinks containing alcohol do you have on a typical day when you are drinking?: 1 or 2 3. How often do you have six or more drinks on one occasion?: Never Total Score: 1 GWEN-7 AMB Questionnaire GWEN-7 Date GWEN - 7 assessed: 06/26/23 Feeling nervous, anxious, or on edge: 1 = Several days Not being able to stop or control worryin = Several days Worrying too much about different things: 1 = Several days Trouble relaxin = Nearly every day Being so restless that it is hard to sit still: 0 = Not at all Becoming easily annoyed or irritable: 0 = Not at all Feeling afraid as if something awful might happen: 0 = Not at all Total GWEN-7 score (0-4 normal; 5-9 mild; 10-14 moderate; 15-21 severe): 6 Source: Developed by Drs. Mihir Christopher, Evelin Barr, Nato Whitley and colleagues, with an educational cheryl from [employer]. Review of Systems Const All systems reviewed & are unremarkable except as noted in HPI and below Reports no additional complaints Eyes Reports no additional complaints ENT Reports no additional complaints Card Reports no additional complaints Resp Reports no additional complaints GI Reports no additional complaints Reports no additional complaints Physical exam (Primary Care) Vital Signs: Last Vital Signs Pulse 75 06/26/23 11:50 BP 110/66 06/26/23 11:50 Pulse Ox 98 06/26/23 11:50 Oxygen Delivery Method Room Air 06/26/23 11:50 BMI result Body Mass Index 38.1 Tobacco/Smoking Status: Tobacco use Status Tobacco use date assessed 06/26/23 06/26/23 12:02 Patient Tobacco Use Status Current someday Tobacco 06/26/23 11:51 Tobacco use type Cigarette 06/26/23 11:51 e-Cigarette/Vaping Use Never Used 06/26/23 11:51 PHQ-9: PHQ-9 Score PHQ-9: Total score 7 06/26/23 12:05 Depression Screening Interpretation: Negative Thrive Assessment: Date of Thrive Assessment Date Thrive assessed 06/26/23 06/26/23 12:05 Const General: no acute distress HENMT Head: Yes normal to inspection Ears: hearing grossly normal bilaterally Mouth: Normal oral and palatal mucosa present Eyes General: appearance normal, both eyes and all related structures Resp Effort & Inspection: normal respiratory effort Auscultation: clear to auscultation bilaterally Cardio Rhythm: regular rhythm Heart sounds: S1 normal heart sound present and S2 normal heart sound present GI Inspection: Yes normal to inspection Palpation (GI): Soft to palpation Percussion: Yes normal to percussion Auscultation: normal bowel sounds Assessment and Plan Assessment & Plan (1) HTN (hypertension): Code(s): I10 - Essential (primary) hypertension Plan: Continue medications (2) T2DM (type 2 diabetes mellitus): Comment: f/u [facility] endo Code(s): E11.9 - Type 2 diabetes mellitus without complications Plan: A1c is up to 6.4, ADA diet increase exercise weight loss discussed with the patient. Ozempic 0.25 mg weekly for the 1st 4 weeks then increase to 0.5 mg will be started. Patient will continue the rest of his medications for follow- up in 3 months with a fasting labs before (3) Abnormal colonoscopy: Comment: 09/2017, polyps repeat 3 yrs , 10/2020 1 polyp recheck in 5 yr Code(s): R93.3 - Abnormal findings on diagnostic imaging of other parts of digestive tract (4) Annual physical exam: Code(s): Z00.00 - Encounter for general adult medical examination without abnormal findings Plan: Well-balanced diet regular exercise weight loss discussed with the patient Orders: Orders Comprehensive [place]. Panel Fast 3 Months E11.9 - Type 2 diabetes mellitus without complications, I10 - Essential (primary) hypertension, R93.3 - Abnormal findings on diagnostic imaging of other parts of digestive tract, Z00.00 - Encounter for general adult medical examination without abnormal findings PSA,Total (Free>4and<10) 3 Months E11.9 - Type 2 diabetes mellitus without complications, I10 - Essential (primary) hypertension, R93.3 - Abnormal findings on diagnostic imaging of other parts of digestive tract, Z00.00 - Encounter for general adult medical examination without abnormal findings Hemoglobin A1c 3 Months E11.9 - Type 2 diabetes mellitus without complications, I10 - Essential (primary) hypertension, R93.3 - Abnormal findings on diagnostic imaging of other parts of digestive tract, Z00.00 - Encounter for general adult medical examination without abnormal findings Lipid Panel 3 Months E11.9 - Type 2 diabetes mellitus without complications, I10 - Essential (primary) hypertension, R93.3 - Abnormal findings on diagnostic imaging of other parts of digestive tract, Z00.00 - Encounter for general adult medical examination without abnormal findings Microalbumin, Random (w Creat) 3 Months E11.9 - Type 2 diabetes mellitus without complications, I10 - Essential (primary) hypertension, R93.3 - Abnormal findings on diagnostic imaging of other parts of digestive tract, Z00.00 - Encounter for general adult medical examination without abnormal findings Medications: New semaglutide (Ozempic) for 4 weeks, then 0.5 mg q week 0.25 mg (0.368 mL) subcut QWEEK 9 mL 2RF Discontinued empagliflozin (Jardiance) Discontinued Reason: Doctor's Order 10 mg PO DAILY 90 tabs 3RF E11.9 - Type 2 diabetes mellitus without complications Coding Level of Care Code Est Pt Prev Care 40-64y(78463) Diagnoses HTN (hypertension) I10 T2DM (type 2 diabetes mellitus) E11.9 Abnormal colonoscopy R93.3 Annual physical exam Z00.00
== END 2023-06-26 12:46 | disposition home or self-care (01) ==
PROVIDERS: Visit Provider Internal Medicine
DX: I10 Essential (primary) hypertension (principal); E11.9 Type 2 diabetes mellitus without complications; R93.3 Abnormal findings on diagnostic imaging of other parts of digestive tract; Z00.00 Encounter for general adult medical examination without abnormal findings
CPT/HCPCS: 99396

== ENCOUNTER 2023-08-11 13:59 | Outpatient (AMB) | payer OTHER, SELFPAY ==
--- NOTE | 2023-08-11 14:03 | MHC.OFFVIS ---
Vital Signs 08/11/23 14:06 Height 5 ft 7 in Weight 242 lb 8.136 oz BMI 38.0 BP 128/70 Blood Pressure Location Rt brachial Position Sitting Pulse 91 Pulse Source Pulse Oximeter Intake Visit Reasons: DM-confirmed Intake Note: Patient present today to follow up on Type 2 Diabetes Mellitus. Last Diabetic Eye exam: March 2023 Last Podiatry Visit: Does not see a Polygraph Operator Random Glucose: 98 mg/dl HgA1C: 6.4% 06/21/2023 Youth Liaison Officer Required: No Accompanied by: Self / Same As Patient Allergies No Known Allergies Allergy (Verified 08/11/23 14:12) HPI HPI DM-confirmed: Details: Patient is a 62-year-old male with a significant past medical history of type 2 diabetes, hypertension, hyperlipidemia presenting today for a diabetic follow-up. Endo: His blood sugars in the office is 98. He is currently on metformin 1000 mg twice a day, Jardiance 25 mg, and was supposed to start Ozempic but never did this because his blood sugars have been less than 150 in the morning. His last A1c was 6.4. He states that he was told he did not have to follow-up. He more but likes following up here as well. CV: bp is managed with losartan and metoprolol. his cholesterol is controlled with lipitor.. [facility] Medical History Iron deficiency Hyperlipemia External hemorrhoids with complication Rectal prolapse Annual physical exam Abnormal colonoscopy Anxiety Lin esophagus Iron deficiency anemia GERD (gastroesophageal reflux disease) Panic disorder Thyroid nodule T2DM (type 2 diabetes mellitus) HTN (hypertension) Surgical History History of surgery History of hemorrhoidectomy History of back surgery History of esophagogastroduodenoscopy (EGD) Hx of colonoscopy Family History Father Diabetes mellitus Alzheimer disease Mother Diabetes mellitus CVD (cardiovascular disease) Social History Housing: House Alcohol intake: current Alcohol intake frequency: holidays/special occasions only Comment: previously medicated with ketorolac and oxycodone Patient Tobacco Use Status: Current someday Tobacco user Tobacco use type: Cigarette e-Cigarette/Vaping Use: Never Used Second Hand Smoke Exposure: No Current occupational status: employed Cognitive needs: No Hearing needs: No Vision needs: Yes Physical Exam Vital Signs: BMI result Body Mass Index 38.0 Const Orientation/consciousness: patient oriented x3 HEENT Ears: hearing grossly normal bilaterally Neck Thyroid: Thyroid normal Lymphatic: no lymphadenopathy noted Resp Auscultation: clear to auscultation bilaterally Cardio Rate: regular rate Rhythm: regular rhythm Heart sounds: S1 normal heart sound present and S2 normal heart sound present Skin General skin exam: no rashes or lesions noted Neuro General: patient oriented x3, gait normal and no focal motor deficits Extrem Other: DP pulses 2+ bilaterally. Good capillary refill. Monofilament sensation intact bilaterally. Decreased vibratory sensation on left foot. Vibratory sensation intact on right. Skin intact. General: Yes normal to inspection Results Reviewed Results Reviewed: Laboratory Tests 06/21/23 09:49 Sodium 141 Potassium 4.3 Chloride 107 Carbon Dioxide 25 Anion Gap 13 BUN 16 Creatinine 0.84 Estimated GFR > 60 Fasting Glucose 154 H Estimat Average Glucose 137 Hemoglobin A1c % 6.4 H Calcium 8.8 AST 15 ALT 31 Alkaline Phosphatase 51 Triglycerides 118 Cholesterol 153 LDL Cholesterol, Calc 95 HDL Cholesterol 35 L Urine Creatinine 89.06 Urine Microalbumin 6.0 Microalb/Creat Ratio 6.7 Assessment & Plan Assessment & Plan (1) T2DM (type 2 diabetes mellitus): Comment: f/u [facility] endo Code(s): E11.9 - Type 2 diabetes mellitus without complications Category: Medical Qualifiers: Diabetes mellitus keno terminal operator insulin use: without keno terminal operator use Diabetes mellitus complication status: without complication Qualified Code(s): E11.9 - Type 2 diabetes mellitus without complications Plan: Encouraged to start Ozempic. We discussed risks and benefits and adverse effects of this medication. He has a follow-up with his PCP in September and then will follow-up with me in 6 months. We discussed titrating up the Ozempic if tolerated and initiating lifestyle modifications to lose weight. Ideally would like to come off of some other medications if he tolerates the Ozempic and loses weight. Patient understands and agrees with this plan. (2) HTN (hypertension): Code(s): I10 - Essential (primary) hypertension Category: Medical Qualifiers: Hypertension type: primary hypertension Qualified Code(s): I10 - Essential (primary) hypertension Plan: WNL. Continue current regimen. (3) Hyperlipemia: Code(s): E78.5 - Hyperlipidemia, unspecified Category: Medical Qualifiers: Hyperlipidemia type: pure hypercholesterolemia Qualified Code(s): E78.00 - Pure hypercholesterolemia, unspecified Plan: Continue Lipitor. Last labs are reviewed. Coding Level of Care Code Est Pt Level 4 (92154) Diagnoses Type 2 diabetes mellitus without complication, without long-term current use of insulin E11.9 Diabetes mellitus chcf insulin use: without chcf use Diabetes mellitus complication status: without complication Primary hypertension I10 Hypertension type: primary hypertension Pure hypercholesterolemia E78.00 Hyperlipidemia type: pure hypercholesterolemia
[2023-08-11 14:06] VITALS: BP 128/70; PULSE 91; BMI 38.0
[2023-08-11 14:28] LABS: Glucose, Whole Blood 98 mg/dL (60-115)
== END 2023-08-11 14:39 | disposition home or self-care (01) ==
PROVIDERS: PCP Internal Medicine; Visit Provider Physician Assistant
DX: E11.9 Type 2 diabetes mellitus without complications (principal); I10 Essential (primary) hypertension; E78.00 Pure hypercholesterolemia, unspecified
CPT/HCPCS: 99214

== ENCOUNTER → 2023-08-11 13:59 | Outpatient (BNVA) | payer OTHER, SELFPAY | PROVIDERS: PCP Internal Medicine; Visit Provider Physician Assistant | DX: E11.9 Type 2 diabetes mellitus without complications (principal); E78.00 Pure hypercholesterolemia, unspecified; I10 Essential (primary) hypertension | CPT/HCPCS: 82947; 99212 ==

== ENCOUNTER 2023-09-20 08:32 | Outpatient (REF) | payer OTHER, SELFPAY ==
[2023-09-20 10:50] LABS: PSA,Total (Free>4and<10) 0.27 ng/mL (0.00-4.00)
[2023-09-20 10:57] LABS: Alanine Aminotransferase 26 U/L (0-40); Albumin Level 4.2 g/dL (3.5-5.0); Alkaline Phosphatase 55 U/L (39-117); Anion Gap 13 (12-20); Aspartate Amino Transferase 14 U/L (5-37); Bilirubin Total 0.4 mg/dL (0.0-1.0); Blood Urea Nitrogen 13 mg/dL (9-16); Calcium 9.7 mg/dL (8.4-10.2); Carbon Dioxide 26 mmol/L (22-29); Chloride 106 mmol/L (96-108); Cholesterol 133 mg/dL (<200); Estimated Glomerular Filt Rate > 60; Glucose Fasting 130 mg/dL (60-99); HDL Cholesterol 34 mg/dL (>40); LDL Cholesterol Calculated 71 mg/dL (<100); Potassium 4.2 mmol/L (3.3-5.1); Sodium 141 mmol/L (135-145); Total Protein 6.7 g/dL (6.5-8.0); Triglycerides 141 mg/dL (<150)
[2023-09-20 11:21] LABS: Creatinine Urine 80.52 mg/dL; Estimated Average Glucose 117 mg/dL; Hemoglobin A1c % 5.7 % (<6.0); Microalbumin Urine < 5.0 mg/L
== END 2023-09-20 08:33 | disposition home or self-care (01) ==
LOC: HO.HMGCLDS 08:32
PROVIDERS: PCP Internal Medicine; Visit Provider Internal Medicine
DX: Z00.00 Encounter for general adult medical examination without abnormal findings (principal); E11.9 Type 2 diabetes mellitus without complications; I10 Essential (primary) hypertension; R93.3 Abnormal findings on diagnostic imaging of other parts of digestive tract
CPT/HCPCS: 36415; 80053; 80061; 82043; 82570; 83036; 84153

== ENCOUNTER 2023-09-26 12:14 | Outpatient (AMB) | payer OTHER, SELFPAY ==
--- NOTE | 2023-09-26 12:44 | A.OFFPC_ITS ---
Vital Signs 09/26/23 12:45 Height 5 ft 7 in Weight 236 lb BMI 37.0 BP 130/74 Blood Pressure Location Lt brachial Position Sitting Pulse 94 Pulse Source Pulse Oximeter Pulse Oximetry (%) 97 Oxygen Delivery Method Room Air Intake Visit Reasons: 30 month f/u Intake Note: Pt is here today for 3 months follow up visit. Allergies No Known Allergies Allergy (Verified 08/11/23 14:12) Medication List - Last Reconciled 09/26/23 by Oralia Smith MD aspirin (Adult Low Dose Aspirin) 81 mg PO Q OTHER DAY atorvastatin 40 mg PO BEDTIME blood sugar diagnostic ([employer] Verio test strips) test blood sugars once a day blood sugar diagnostic As directed blood-glucose meter ([employer] Verio Flex Start kit) As directed blood-glucose meter ([employer] Verio Flex Meter) As directed 1 time a day bupropion HCl XL 300 mg PO BEDTIME 90 days cholecalciferol (vitamin D3) 50 mcg PO DAILY empagliflozin (Jardiance) 25 mg PO DAILY losartan 100 mg PO DAILY metformin 1,000 mg PO BID metoprolol succinate ER 50 mg PO DAILY omeprazole 20 mg PO DAILY semaglutide (Ozempic) 0.5 mg (0.736 mL) subcut QWEEK Tobacco use date assessed: 09/26/23 Dental Screening Dental Screen Date: 06/26/23 HPI 30 month f/u HPI Details Pt presents for f/u DM 2, HTN, hyperlipid, stable on meds. [facility] Medical History Iron deficiency Hyperlipemia External hemorrhoids with complication Rectal prolapse Annual physical exam Abnormal colonoscopy Anxiety Lin esophagus Iron deficiency anemia GERD (gastroesophageal reflux disease) Panic disorder Thyroid nodule T2DM (type 2 diabetes mellitus) HTN (hypertension) Surgical History History of surgery History of hemorrhoidectomy History of back surgery History of esophagogastroduodenoscopy (EGD) Hx of colonoscopy Family History Father Diabetes mellitus Alzheimer disease Mother Diabetes mellitus CVD (cardiovascular disease) Social History Housing: House Alcohol intake: current Alcohol intake frequency: holidays/special occasions only Comment: previously medicated with ketorolac and oxycodone Patient Tobacco Use Status: Current someday Tobacco user Tobacco use type: Cigarette e-Cigarette/Vaping Use: Never Used Second Hand Smoke Exposure: No service: No Current occupational status: employed Cognitive needs: No Hearing needs: No Vision needs: Yes Questionnaire PHQ-9 Over the last 2 weeks, how often have you been bothered by any of the following problems? 1. Little interest or pleasure in doing things: not at all 2. Feeling down, depressed, or hopeless: not at all 3. Trouble falling or staying asleep, or sleeping too much: more than half the days 4. Feeling tired or having little energy: several days 5. Poor appetite or overeating: not at all 6. Feeling bad about yourself - or that you are a failure or have let yourself or your family down: several days 7. Trouble concentrating on things, such as reading the newspaper or watching television: not at all 8. Moving or speaking so slowly that other people could have noticed. Or the opposite - being so fidgety or restless that you have been moving around a lot more than usual: not at all 9. Thoughts that you would be better off or of hurting yourself in some way: not at all Total score: 4 Depression Screening Interpretation: Negative Depression Screening Done: Yes Source: Developed by Drs. Mihir Christopher, Evelin Barr, Nato Whitley and colleagues, with an educational cheryl from [employer]. Thrive Questionnaire Date Thrive assessed: 09/26/23 I am a: Patient What is your living situation today?: I have a steady place to live Within the past 12 months, did the food you bought not last and you didn't have the money to get more?: Never true Within the past 12 months, did you worry whether your food would run out before you got money to buy more?: Never true Do you have trouble paying for medicines?: No Do you have trouble getting transportation to medical appointments?: No Do you have trouble paying your heating and electricity bill?: Yes Do you have trouble taking care of your child, family member or friend?: No Do you have trouble with day-to-day activities such as bathing, preparing meals, shopping, managing finances, etc.?: I choose not to answer this question Are you currently unemployed and looking for a job?: No Are you interested in more education?: I choose not to answer this question Please select the resources that you would like help with: Utilities Currently or been in a relationship where the following occur: I choose not to answer THRIVE Score: 1 AUDIT C Alcohol Use Questionnaire (AUDIT-C) 1. How often do you have a drink containing alcohol?: 2-4 times a month 2. How many drinks containing alcohol do you have on a typical day when you are drinking?: 1 or 2 3. How often do you have six or more drinks on one occasion?: Never Total Score: 2 GWEN-7 AMB Questionnaire GWEN-7 Date GWEN - 7 assessed: 09/26/23 Feeling nervous, anxious, or on edge: 0 = Not at all Not being able to stop or control worryin = Not at all Worrying too much about different things: 0 = Not at all Trouble relaxin = Several days Being so restless that it is hard to sit still: 0 = Not at all Becoming easily annoyed or irritable: 1 = Several days Feeling afraid as if something awful might happen: 0 = Not at all Total GWEN-7 score (0-4 normal; 5-9 mild; 10-14 moderate; 15-21 severe): 2 Source: Developed by Drs. Mihir Christopher, Evelin Barr, Nato Whitley and colleagues, with an educational cheryl from [employer]. Review of Systems Const All systems reviewed & are unremarkable except as noted in HPI and below Eyes Reports no additional complaints ENT Reports no additional complaints Card Reports no additional complaints Resp Reports no additional complaints GI Reports no additional complaints Physical exam (Primary Care) Vital Signs: Last Vital Signs Pulse 94 09/26/23 12:45 BP 130/74 09/26/23 12:45 Pulse Ox 97 09/26/23 12:45 Oxygen Delivery Method Room Air 09/26/23 12:45 BMI result Body Mass Index 37.0 Tobacco/Smoking Status: Tobacco use Status Tobacco use date assessed 09/26/23 09/26/23 12:49 Patient Tobacco Use Status Current someday Tobacco 09/26/23 12:46 Tobacco use type Cigarette 09/26/23 12:46 e-Cigarette/Vaping Use Never Used 09/26/23 12:46 PHQ-9: PHQ-9 Score PHQ-9: Total score 4 09/26/23 12:49 Depression Screening Interpretation: Negative Thrive Assessment: Date of Thrive Assessment Date Thrive assessed 09/26/23 09/26/23 12:49 Currently or been in a relationship where the following occur: I choose not to answer Const General: no acute distress Neck Neck: Yes supple Resp Effort & Inspection: normal respiratory effort Auscultation: clear to auscultation bilaterally Cardio Rhythm: regular rhythm Heart sounds: S1 normal heart sound present and S2 normal heart sound present GI Inspection: Yes normal to inspection Palpation (GI): Soft to palpation Percussion: Yes normal to percussion Auscultation: normal bowel sounds Assessment and Plan Assessment & Plan (1) HTN (hypertension): Code(s): I10 - Essential (primary) hypertension Qualifiers: Hypertension type: primary hypertension Qualified Code(s): I10 - Essential (primary) hypertension Plan: Will continue current medications (2) T2DM (type 2 diabetes mellitus): Code(s): E11.9 - Type 2 diabetes mellitus without complications Qualifiers: 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: without [facility] use Diabetes mellitus complication status: without complication Qualified Code(s): E11.9 - Type 2 diabetes mellitus without complications Plan: A1c is 5.7, continue ADA diet regular exercise weight lost, continue same medication return in 3 months with a fasting labs before (3) Hyperlipemia: Code(s): E78.5 - Hyperlipidemia, unspecified Qualifiers: Hyperlipidemia type: pure hypercholesterolemia Qualified Code(s): E7 8.00 - Pure hypercholesterolemia, unspecified Plan: Continue statin (4) Overweight: Code(s): E66.3 - Overweight Plan: Weight loss discussed with the patient Orders: Orders Complete Blood Count Auto Diff 3 Months E11.9 - Type 2 diabetes mellitus without complications, E66.3 - Overweight, E78.00 - Pure hypercholesterolemia, unspecified, I10 - Essential (primary) hypertension Hemoglobin A1c 3 Months E11.9 - Type 2 diabetes mellitus without complications, E66.3 - Overweight, E78.00 - Pure hypercholesterolemia, unspecified, I10 - Essential (primary) hypertension Comprehensive [place]. Panel Fast 3 Months E11.9 - Type 2 diabetes mellitus without complications, E66.3 - Overweight, E78.00 - Pure hypercholesterolemia, unspecified, I10 - Essential (primary) hypertension Lipid Panel 3 Months E11.9 - Type 2 diabetes mellitus without complications, E66.3 - Overweight, E78.00 - Pure hypercholesterolemia, unspecified, I10 - Essential (primary) hypertension Microalbumin, Random (w Creat) 3 Months E11.9 - Type 2 diabetes mellitus without complications, E66.3 - Overweight, E78.00 - Pure hypercholesterolemia, unspecified, I10 - Essential (primary) hypertension Medications: New hydrocortisone 2.5% (Proctosol HC) 1 appl NE BID-QID PRN 30 grams 1RF hemorrhoids hydrocortisone 2.5% (Proctosol HC) 1 appl NE BID-QID PRN 30 grams 1RF hemorrhoids Changed From semaglutide (Ozempic) for 4 weeks, then 0.5 mg q week 0.25 mg (0.368 mL) subcut QWEEK 9 mL 2RF To semaglutide (Ozempic) 0.5 mg q week 0.5 mg (0.736 mL) subcut QWEEK 9 mL 2RF Coding Level of Care Code Est Pt Level 4 (04079) Diagnoses Primary hypertension I10 Hypertension type: primary hypertension Type 2 diabetes mellitus without complication, without long-term current use of insulin E11.9 Diabetes mellitus [facility] insulin use: without [facility] use Diabetes mellitus complication status: without complication Pure hypercholesterolemia E78.00 Hyperlipidemia type: pure hypercholesterolemia Overweight E66.3
[2023-09-26 12:45] VITALS: BP 130/74; PULSE 94; O2SAT 97; BMI 37.0
== END 2023-09-26 13:08 | disposition home or self-care (01) ==
PROVIDERS: PCP Internal Medicine; Visit Provider Internal Medicine
DX: I10 Essential (primary) hypertension (principal); E11.9 Type 2 diabetes mellitus without complications; E78.00 Pure hypercholesterolemia, unspecified; E66.3 Overweight
CPT/HCPCS: 99214

== ENCOUNTER 2023-12-27 11:16 | Outpatient (REF) | payer OTHER, SELFPAY ==
[2023-12-27 13:16] LABS: MANUAL DIFF FLAG NO
[2023-12-27 13:35] LABS: Basophils Percent Auto 0.5 % (0-2); Eosinophils Absolute Auto 0.1 X10*3/uL (0.0-0.4); Eosinophils Percent Auto 1.3 % (0-4); Hematocrit 46.2 % (42.0-52.0); Hemoglobin 14.8 g/dl (14.0-18.0); Imm Gran Abs Auto 0.03 X10*3/uL (0.00-0.03); Imm Gran Pct Auto 0.4 % (0.0-0.4); Lymphocytes Absolute Auto 1.9 X10*3/uL (1.2-4.9); Lymphocytes Percent Auto 25.9 % (20-40); Mean Corpuscular Hemoglobin 26.8 pg (27.0-33.0); Mean Corpuscular Volume 83.5 fL (80.0-98.0); Mean Platelet Volume 10.1 fL (9.4-12.4); Monocytes Absolute Auto 0.5 X10*3/uL (0.1-1.2); Monocytes Percent Auto 7.2 % (2-11); Neutrophils Absolute Auto 4.8 x10*3/uL (2.0-8.3); Neutrophils Percent Auto 64.7 % (45-73); Platelet Count 243 X10*3/uL (160-400); Red Blood Count 5.53 X10*6/uL (4.60-5.80); Red Cell Distribution Width 15.4 % (11.0-16.0); White Blood Count 7.5 X10*3/uL (4.8-10.8)
[2023-12-27 14:02] LABS: Estimated Average Glucose 108 mg/dL; Hemoglobin A1C 136.9718 umol/L; Hemoglobin A1c % 5.4 % (<6.0); Total Hemoglobin (HGBA1C) 3812.3933 umol/L
[2023-12-27 14:23] LABS: Alanine Aminotransferase 32 U/L (0-40); Albumin Level 4.3 g/dL (3.5-5.0); Alkaline Phosphatase 55 U/L (39-117); Anion Gap 11 (12-20); Aspartate Amino Transferase 22 U/L (5-37); Bilirubin Total 0.5 mg/dL (0.0-1.0); Blood Urea Nitrogen 11 mg/dL (9-16); Calcium 9.5 mg/dL (8.4-10.2); Carbon Dioxide 28 mmol/L (22-29); Chloride 107 mmol/L (96-108); Cholesterol 133 mg/dL (<200); Estimated Glomerular Filt Rate > 60; Glucose Fasting 101 mg/dL (60-99); HDL Cholesterol 42 mg/dL (>40); LDL Cholesterol Calculated 71 mg/dL (<100); Potassium 4.5 mmol/L (3.3-5.1); Sodium 141 mmol/L (135-145); Total Protein 6.7 g/dL (6.5-8.0); Triglycerides 103 mg/dL (<150)
[2023-12-27 14:38] LABS: Creatinine Urine 134.95 mg/dL; Microalbum/Creatinine Ratio Ur 3.7 ug/mg cr (<30)
== END 2023-12-27 11:17 | disposition home or self-care (01) ==
LOC: HO.HMGCLDS 11:16
PROVIDERS: PCP Internal Medicine; Visit Provider Internal Medicine
DX: E11.9 Type 2 diabetes mellitus without complications (principal); I10 Essential (primary) hypertension; E66.3 Overweight; E78.00 Pure hypercholesterolemia, unspecified
CPT/HCPCS: 36415; 80053; 80061; 82043; 82570; 83036; 85025

== ENCOUNTER 2024-01-02 12:29 | Outpatient (AMB) | payer OTHER, SELFPAY ==
[2024-01-02 12:32] VITALS: BP 122/62; PULSE 95; O2SAT 98; BMI 35.1
--- NOTE | 2024-01-02 12:32 | A.OFFPC_ITS ---
Vital Signs 01/02/24 12:32 Height 5 ft 7 in Weight 224 lb BMI 35.1 BP 122/62 Blood Pressure Location Rt brachial Position Sitting Pulse 95 Pulse Source Pulse Oximeter Pulse Oximetry (%) 98 Oxygen Delivery Method Room Air Intake Visit Reasons: 3M F/U Intake Note: Pt is here today for 3 months follow up visit. Allergies No Known Allergies Allergy (Verified 01/02/24 12:37) Medication List - Last Reconciled 01/02/24 by Oralia Smith MD aspirin (Adult Low Dose Aspirin) 81 mg PO Q OTHER DAY atorvastatin 40 mg PO BEDTIME blood sugar diagnostic ([employer] Verio test strips) test blood sugars once a day blood sugar diagnostic As directed blood-glucose meter ([employer] Verio Flex Start kit) As directed blood-glucose meter ([employer]Touch Verio Flex Meter) As directed 1 time a day bupropion HCl XL 300 mg PO BEDTIME 90 days cholecalciferol (vitamin D3) 50 mcg PO DAILY empagliflozin (Jardiance) 25 mg PO DAILY hydrocortisone 2.5% (Proctosol HC) 1 appl [place] BID-QID PRN losartan 100 mg PO DAILY metformin 1,000 mg PO BID metoprolol succinate ER 50 mg PO DAILY omeprazole 20 mg PO DAILY Ozempic (semaglutide) 2 mg (0.75 mL) subcut QWEEK NS Tobacco use date assessed: 01/02/24 Dental Screening Dental Screen Date: 06/26/23 HPI 3M F/U HPI Details Patient presents for the follow-up on type 2 diabetes hypertension hyperlipidemia. He lost 20 lb since July on Ozempic. 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 [facility] Medical History Iron deficiency Hyperlipemia External hemorrhoids with complication Rectal prolapse Annual physical exam Abnormal colonoscopy Anxiety Lin esophagus Iron deficiency anemia GERD (gastroesophageal reflux disease) Panic disorder Thyroid nodule T2DM (type 2 diabetes mellitus) HTN (hypertension) Surgical History History of surgery History of hemorrhoidectomy History of back surgery History of esophagogastroduodenoscopy (EGD) Hx of colonoscopy Family History Father Diabetes mellitus Alzheimer disease Mother Diabetes mellitus CVD (cardiovascular disease) Social History Housing: House Alcohol intake: current Alcohol intake frequency: holidays/special occasions only Comment: previously medicated with ketorolac and oxycodone Patient Tobacco Use Status: Current someday Tobacco user Tobacco use type: Cigarette e-Cigarette/Vaping Use: Never Used Second Hand Smoke Exposure: No service: No Current occupational status: employed Cognitive needs: No Hearing needs: No Vision needs: Yes Questionnaire Thrive Questionnaire Date Thrive assessed: 09/26/23 I am a: Patient What is your living situation today?: I have a steady place to live Within the past 12 months, did the food you bought not last and you didn't have the money to get more?: Never true Within the past 12 months, did you worry whether your food would run out before you got money to buy more?: Never true Do you have trouble paying for medicines?: No Do you have trouble getting transportation to medical appointments?: No Do you have trouble paying your heating and electricity bill?: Yes Do you have trouble taking care of your child, family member or friend?: No Do you have trouble with day-to-day activities such as bathing, preparing meals, shopping, managing finances, etc.?: I choose not to answer this question Are you currently unemployed and looking for a job?: No Are you interested in more education?: I choose not to answer this question Please select the resources that you would like help with: Utilities Currently or been in a relationship where the following occur: I choose not to answer THRIVE Score: 1 GWEN-7 AMB Questionnaire GWEN-7 Date GWEN - 7 assessed: 09/26/23 Source: Developed by Drs. Mihir Christopher, Evelin Barr, Nato Whitley and colleagues, with an educational cheryl from [employer]. Review of Systems Const All systems reviewed & are unremarkable except as noted in HPI and below ENT Reports no additional complaints Card Reports no additional complaints Resp Reports no additional complaints GI Reports no additional complaints Physical exam (Primary Care) Vital Signs: Last Vital Signs Pulse 95 01/02/24 12:32 BP 122/62 01/02/24 12:32 Pulse Ox 98 01/02/24 12:32 Oxygen Delivery Method Room Air 01/02/24 12:32 BMI result Body Mass Index 35.1 Tobacco/Smoking Status: Tobacco use Status Tobacco use date assessed 01/02/24 01/02/24 12:37 Patient Tobacco Use Status Current someday Tobacco 01/02/24 12:37 Tobacco use type Cigarette 01/02/24 12:37 e-Cigarette/Vaping Use Never Used 01/02/24 12:37 Thrive Assessment: Date of Thrive Assessment Date Thrive assessed 09/26/23 01/02/24 12:37 Currently or been in a relationship where the following occur: I choose not to answer Const General: no acute distress HENMT Ears: hearing grossly normal bilaterally Resp Effort & Inspection: normal respiratory effort Auscultation: clear to auscultation bilaterally Cardio Rhythm: regular rhythm Heart sounds: S1 normal heart sound present and S2 normal heart sound present Coding Level of Care Code Est Pt Level 4 (10341) Diagnoses Type 2 diabetes mellitus without complication, without long-term current use of insulin E11.9 Diabetes mellitus complication status: without complication 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 Patient will increase Ozempic to 2 mg and decrease metoprolol to 1000 mg daily and will continue Jardiance. ADA diet regular physical activity discussed with the patient (2) HTN (hypertension): Code(s): I10 - Essential (primary) hypertension Category: Medical Qualifiers: Hypertension type: primary hypertension Qualified Code(s): I10 - Essential (primary) hypertension Plan: Continue losartan (3) Overweight: Code(s): E66.3 - Overweight Category: Medical Plan: Decreasing caloric intake increasing physical activity weight loss discussed with the patient (4) Hyperlipemia: Code(s): E78.5 - Hyperlipidemia, unspecified Category: Medical Qualifiers: Hyperlipidemia type: pure hypercholesterolemia Qualified Code(s): E78.00 - Pure hypercholesterolemia, unspecified Plan: Continue statin Orders: Orders Hemoglobin A1c 3 Months E11.9 - Type 2 diabetes mellitus without complications, E66.3 - Overweight, I10 - Essential (primary) hypertension Comprehensive [place]. Panel Fast 3 Months E11.9 - Type 2 diabetes mellitus without complications, E66.3 - Overweight, I10 - Essential (primary) hypertension Lipid Panel 3 Months E11.9 - Type 2 diabetes mellitus without complications, E66.3 - Overweight, I10 - Essential (primary) hypertension Medications: New Ozempic (semaglutide) 2 mg (0.75 mL) subcut QWEEK 9 mL 4RF NS Ozempic (semaglutide) 2 mg (0.75 mL) subcut QWEEK 3 mL 4RF NS Changed From metformin 1,000 mg PO BID 180 tabs 3RF To metformin 1,000 mg PO .qd 90 tabs 3RF Discontinued Ozempic (semaglutide) Discontinued Reason: Doctor's Order 1 mg (0.75 mL) subcut QWEEK 9 mL 0RF NS
== END 2024-01-02 13:10 | disposition home or self-care (01) ==
PROVIDERS: PCP Internal Medicine; Visit Provider Internal Medicine
DX: E11.9 Type 2 diabetes mellitus without complications (principal); I10 Essential (primary) hypertension; E66.3 Overweight; E78.00 Pure hypercholesterolemia, unspecified

== ENCOUNTER → 2024-01-02 12:29 | Outpatient (BNVA) | payer OTHER, SELFPAY | PROVIDERS: PCP Internal Medicine; Visit Provider Internal Medicine | DX: E11.9 Type 2 diabetes mellitus without complications (principal); I10 Essential (primary) hypertension; E66.3 Overweight; E78.00 Pure hypercholesterolemia, unspecified; Z79.84 Long term (current) use of oral hypoglycemic drugs; Z79.85 Long-term (current) use of injectable non-insulin antidiabetic drugs; Z79.899 Other long term (current) drug therapy | CPT/HCPCS: 99212 ==

== ENCOUNTER 2024-01-17 11:43 | Outpatient (AMB) | payer OTHER, SELFPAY ==
[2024-01-17 11:45] VITALS: BP 122/64; PULSE 86; O2SAT 97; BMI 34.8
--- NOTE | 2024-01-17 11:45 | MHC.PC.OV ---
Vital Signs 01/17/24 11:45 Height 5 ft 7 in Weight 222 lb BMI 34.8 BP 122/64 Blood Pressure Location Rt brachial Position Sitting Pulse 86 Pulse Source Pulse Oximeter Pulse Oximetry (%) 97 Oxygen Delivery Method Room Air Intake Visit Reasons: neck pain Intake Note: Pt is here today for a sick visit. Pt c/o neck pain and L shoulder pain. Allergies No Known Allergies Allergy (Verified 01/17/24 11:47) Medication List - Last Reconciled 01/17/24 by Oralia Smith MD aspirin (Adult Low Dose Aspirin) 81 mg PO Q OTHER DAY atorvastatin 40 mg PO BEDTIME blood sugar diagnostic ([employer] Verio test strips) test blood sugars once a day blood sugar diagnostic As directed blood-glucose meter ([employer] Verio Flex Start kit) As directed blood-glucose meter ([employer] Verio Flex Meter) As directed 1 time a day bupropion HCl XL 300 mg PO BEDTIME 90 days cholecalciferol (vitamin D3) 50 mcg PO DAILY empagliflozin (Jardiance) 25 mg PO DAILY hydrocortisone 2.5% (Proctosol HC) 1 appl [place] BID-QID PRN losartan 100 mg PO DAILY metformin 1,000 mg PO .qd metoprolol succinate ER 50 mg PO DAILY omeprazole 20 mg PO DAILY Ozempic (semaglutide) 2 mg (0.75 mL) subcut QWEEK NS Tobacco use date assessed: 01/02/24 Dental Screening Dental Screen Date: 06/26/23 HPI neck pain HPI Details Pt c/o chronic L side neck pain getting worsening for 1 week 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 Patient denies any weakness or numbness in right upper extremity. Type 2 diabetes is stable on current medications [facility] Medical History Iron deficiency Hyperlipemia External hemorrhoids with complication Rectal prolapse Annual physical exam Abnormal colonoscopy Anxiety Lin esophagus Iron deficiency anemia GERD (gastroesophageal reflux disease) Panic disorder Thyroid nodule T2DM (type 2 diabetes mellitus) HTN (hypertension) Surgical History History of surgery History of hemorrhoidectomy History of back surgery History of esophagogastroduodenoscopy (EGD) Hx of colonoscopy Family History Father Diabetes mellitus Alzheimer disease Mother Diabetes mellitus CVD (cardiovascular disease) Social History Housing: House Alcohol intake: current Alcohol intake frequency: holidays/special occasions only Comment: previously medicated with ketorolac and oxycodone Patient Tobacco Use Status: Current someday Tobacco user Tobacco use type: Cigarette e-Cigarette/Vaping Use: Never Used Second Hand Smoke Exposure: No service: No Current occupational status: employed Cognitive needs: No Hearing needs: No Vision needs: Yes Questionnaire Thrive Questionnaire Date Thrive assessed: 09/26/23 I am a: Patient What is your living situation today?: I have a steady place to live Within the past 12 months, did the food you bought not last and you didn't have the money to get more?: Never true Within the past 12 months, did you worry whether your food would run out before you got money to buy more?: Never true Do you have trouble paying for medicines?: No Do you have trouble getting transportation to medical appointments?: No Do you have trouble paying your heating and electricity bill?: Yes Do you have trouble taking care of your child, family member or friend?: No Do you have trouble with day-to-day activities such as bathing, preparing meals, shopping, managing finances, etc.?: I choose not to answer this question Are you currently unemployed and looking for a job?: No Are you interested in more education?: I choose not to answer this question Please select the resources that you would like help with: Utilities Currently or been in a relationship where the following occur: I choose not to answer THRIVE Score: 1 GWEN-7 AMB Questionnaire GWEN-7 Date GWEN - 7 assessed: 09/26/23 Source: Developed by Drs. Mihir Christopher, Evelin Barr, Nato Whitley and colleagues, with an educational cheryl from [email or web address]. Review of Systems Const All systems reviewed & are unremarkable except as noted in HPI and below ENT Reports no additional complaints Card Reports no additional complaints GI Reports no additional complaints Reports no additional complaints Physical exam (Primary Care) Vital Signs: Last Vital Signs Pulse 86 01/17/24 11:45 BP 122/64 01/17/24 11:45 Pulse Ox 97 01/17/24 11:45 Oxygen Delivery Method Room Air 01/17/24 11:45 BMI result Body Mass Index 34.8 Tobacco/Smoking Status: Tobacco use Status Tobacco use date assessed 01/02/24 01/17/24 11:49 Patient Tobacco Use Status Current someday Tobacco 01/17/24 11:49 Tobacco use type Cigarette 01/17/24 11:49 e-Cigarette/Vaping Use Never Used 01/17/24 11:49 Thrive Assessment: Date of Thrive Assessment Date Thrive assessed 09/26/23 01/17/24 11:49 Currently or been in a relationship where the following occur: I choose not to answer Const General: no acute distress HENMT Head: Yes normal to inspection Ears: hearing grossly normal bilaterally Resp Effort & Inspection: normal respiratory effort Auscultation: clear to auscultation bilaterally Cardio Rhythm: regular rhythm Heart sounds: S1 normal heart sound present and S2 normal heart sound present Back/Spine/Pelvis Other: There is a decreased range of motion and C-spine paraspinal tenderness in left lower with cervical region and supraspinatus, left shoulder with a full range of motion ,motor strength 5/5 bilaterally Coding Level of Care Code Est Pt Level 3 (90414) Diagnoses Neck pain M54.2 Type 2 diabetes mellitus without complication, without long-term current use of insulin E11.9 Diabetes mellitus correction insulin use: without criminal justice program director use Diabetes mellitus complication status: without complication Assessment & Plan Assessment & Plan (1) Neck pain: Code(s): M54.2 - Cervicalgia Category: Medical Plan: For musculoskeletal neck pain meloxicam baclofen prescribed, neck exercises given to the patient. PT was recommended but patient declined. (2) T2DM (type 2 diabetes mellitus): Code(s): E11.9 - Type 2 diabetes mellitus without complications Category: Medical Qualifiers: Diabetes mellitus criminal justice program director insulin use: without criminal justice program director use Diabetes mellitus complication status: without complication Qualified Code(s): E11.9 - Type 2 diabetes mellitus without complications Plan: Continue current medications Medications: New baclofen 10 mg PO BEDTIME 20 tabs 0RF meloxicam 15 mg PO DAILY 10 tabs 0RF meloxicam 15 mg PO DAILY 10 tabs 0RF baclofen 10 mg PO BEDTIME 20 tabs 0RF
== END 2024-01-17 12:23 | disposition home or self-care (01) ==
LOC: HO.HMCC 11:44
PROVIDERS: PCP Internal Medicine; Visit Provider Internal Medicine
DX: M54.2 Cervicalgia (principal); E11.9 Type 2 diabetes mellitus without complications

== ENCOUNTER → 2024-01-17 11:43 | Outpatient (BNVA) | payer OTHER, SELFPAY | PROVIDERS: PCP Internal Medicine; Visit Provider Internal Medicine | DX: M54.2 Cervicalgia (principal); E11.9 Type 2 diabetes mellitus without complications | CPT/HCPCS: 99212 ==

== ENCOUNTER 2024-02-16 15:33 | Outpatient (AMB) | payer OTHER, SELFPAY ==
--- NOTE | 2024-02-16 15:36 | A.OFFVIS_ITS ---
Vital Signs 02/16/24 15:39 Height 5 ft 7 in Weight 220 lb BMI 34.5 BP 132/80 Blood Pressure Location Rt brachial Position Sitting Pulse 85 Pulse Source Pulse Oximeter Intake Visit Reasons: DM/Confirmed Intake Note: Patient presents today for a follow-up on Type 2 Diabetes Mellitus: Last Diabetic eye exam was on: 03/14/2023 Last Podiatry exam was on: Does not see a Freight Unloader Most recent HbA1c: 5.4%, 12/27/2023 Random Glucose- 95 mg/dL, Today Dropper Tank Storage Required: No Accompanied by: Self / Same As Patient Allergies No Known Allergies Allergy (Verified 02/16/24 15:37) Medication List - Last Reconciled 02/16/24 by Shelia Kidd PA-C aspirin (Adult Low Dose Aspirin) 81 mg PO Q OTHER DAY atorvastatin 40 mg PO BEDTIME baclofen 10 mg PO BEDTIME blood sugar diagnostic (OneTouch Verio test strips) test blood sugars once a day blood sugar diagnostic As directed blood-glucose meter (Freeman Motorbikes[employer] Verio Flex Start kit) As directed blood-glucose meter (OneTouch Verio Flex Meter) As directed 1 time a day bupropion HCl XL 300 mg PO BEDTIME 90 days cholecalciferol (vitamin D3) 50 mcg PO DAILY empagliflozin (Jardiance) 25 mg PO DAILY hydrocortisone 2.5% (Proctosol HC) 1 appl [place] BID-QID PRN losartan 100 mg PO DAILY meloxicam 15 mg PO DAILY metformin 1,000 mg PO .qd metoprolol succinate ER 50 mg PO DAILY omeprazole 20 mg PO DAILY Ozempic (semaglutide) 2 mg (0.75 mL) subcut QWEEK NS HPI HPI DM/Confirmed: Details: Patient is a 63-year-old male with a significant past medical history of hypertension, type 2 diabetes, hyperlipidemia, anxiety and Lin's esophagus presenting today for a follow up regarding his diabetes. Endo: Dm-his last A1c is 5.4. He is currently on Jardiance 25 mg daily, Ozempic 2 mg once a week, metformin 1000 mg daily. CV: Blood pressure today in the office is 132/80. He is currently on losartan 100 mg daily, metoprolol 50 mg daily. Cholesterol is managed with atorvastatin 40 mg. Last lipids and LFTs were WNL. [facility] Medical History Iron deficiency Hyperlipemia External hemorrhoids with complication Rectal prolapse Annual physical exam Abnormal colonoscopy Anxiety Lin esophagus Iron deficiency anemia GERD (gastroesophageal reflux disease) Panic disorder Thyroid nodule T2DM (type 2 diabetes mellitus) HTN (hypertension) Surgical History History of surgery History of hemorrhoidectomy History of back surgery History of esophagogastroduodenoscopy (EGD) Hx of colonoscopy Family History Father Diabetes mellitus Alzheimer disease Mother Diabetes mellitus CVD (cardiovascular disease) Social History Housing: House Alcohol intake: current Alcohol intake frequency: holidays/special occasions only Comment: previously medicated with ketorolac and oxycodone Patient Tobacco Use Status: Current someday Tobacco user Tobacco use type: Cigarette e-Cigarette/Vaping Use: Never Used Second Hand Smoke Exposure: No service: No Current occupational status: employed Cognitive needs: No Hearing needs: No Vision needs: Yes Physical Exam Const Orientation/consciousness: patient oriented x3 Neck Neck: Yes no lymphadenopathy Thyroid: Thyroid normal Carotids: no bruits Resp Auscultation: clear to auscultation bilaterally Cardio Rate: regular rate Rhythm: regular rhythm Heart sounds: S1 normal heart sound present and S2 normal heart sound present Peripheral pulses: dorsalis pedis present Neuro General: patient oriented x3, gait normal and no focal motor deficits Extrem General: Yes normal to inspection Results Reviewed Results Reviewed: Laboratory Tests 12/27/23 12/27/23 11:23 11:35 Sodium 141 Potassium 4.5 Chloride 107 Carbon Dioxide 28 Anion Gap 11 L BUN 11 Creatinine 0.86 Estimated GFR > 60 Fasting Glucose 101 H Estimat Average Glucose 108 Hemoglobin A1c % 5.4 AST 22 ALT 32 Triglycerides 103 Cholesterol 133 LDL Cholesterol, Calc 71 HDL Cholesterol 42 Urine Creatinine 134.95 Urine Microalbumin 5.0 Microalb/Creat Ratio 3.7 Assessment & Plan Assessment & Plan (1) T2DM (type 2 diabetes mellitus): Code(s): E11.9 - Type 2 diabetes mellitus without complications Category: Medical Qualifiers: Diabetes mellitus complication status: without complication Diabetes mellitus key cutter insulin use: without key cutter use Qualified Code(s): E11.9 - Type 2 diabetes mellitus without complications Plan: will d/c metformin continue jardiance Continue Ozempic 2 mg weekly. He just started this regimen last week. We did spent extensive time today discussing diet and lifestyle modifications. He is frustrated with his weight. He does have some appetite suppression with the Ozempic. We did discuss making healthier choices and he states that some of this is his own fall as he does over indulgence sweets. I did provide him the right BMI luly today. He will let me know how he does with that and we will do a short term follow up in a few months. (2) HTN (hypertension): Code(s): I10 - Essential (primary) hypertension Category: Medical Qualifiers: Hypertension type: primary hypertension Qualified Code(s): I10 - Essential (primary) hypertension Plan: WNL. Continue current regimen (3) Hyperlipemia: Code(s): E78.5 - Hyperlipidemia, unspecified Category: Medical Qualifiers: Hyperlipidemia type: pure hypercholesterolemia Qualified Code(s): E78.00 - Pure hypercholesterolemia, unspecified Plan: As above. Coding Level of Care Code Est Pt Level 4 (36479) Complex EM visit Add On G2211 Diagnoses Type 2 diabetes mellitus without complication, without long-term current use of insulin E11.9 Diabetes mellitus complication status: without complication Diabetes mellitus intermediate insulin use: without intermediate use Primary hypertension I10 Hypertension type: primary hypertension Pure hypercholesterolemia E78.00 Hyperlipidemia type: pure hypercholesterolemia
[2024-02-16 15:39] VITALS: BP 132/80; PULSE 85; BMI 34.5
[2024-02-16 15:47] LABS: Glucose, Whole Blood 95 mg/dL (60-115)
== END 2024-02-16 16:13 | disposition home or self-care (01) ==
PROVIDERS: PCP Internal Medicine; Visit Provider Physician Assistant
DX: E11.9 Type 2 diabetes mellitus without complications (principal); I10 Essential (primary) hypertension; E78.00 Pure hypercholesterolemia, unspecified

== ENCOUNTER → 2024-02-16 15:33 | Outpatient (BNVA) | payer OTHER, SELFPAY | PROVIDERS: PCP Internal Medicine; Visit Provider Physician Assistant | DX: E11.9 Type 2 diabetes mellitus without complications (principal); E78.00 Pure hypercholesterolemia, unspecified; I10 Essential (primary) hypertension | CPT/HCPCS: 82947; 99212 ==

== ENCOUNTER 2024-04-22 09:29 | Outpatient (REF) | payer OTHER, SELFPAY ==
--- OUTSIDE RECORDS SUMMARY | 2024-04-22 10:12 | XMS_ITS | Patient Health Record ---
Author Organization [facility] Address [address] [place] [address] Care Team Providers Care Thread Grinder Name Role Phone Oralia Smith MD Primary Care Provider Mihir Rizvi Unavailable [phone] ALLERGIES No Known Allergies REASON FOR REFERRAL No Information MEDICATIONS Medication SIG (Take, Route, Frequency, Duration) Notes Start Date End Date Status Metoprolol Succinate ER 50 MG Oral for 90 Active Atorvastatin Calcium 40 MG Oral for 90 Active metFORMIN HCl 1000 MG Oral for 90 Active Losartan Potassium 100 MG Oral for 90 Active Empagliflozin 10 MG 1 tablet Orally Once a day for 30 day(s) Active Aspirin Adult Low Strength Active Iron (Ferrous Sulfate) 325 (65 Fe) MG 1 tablet Orally Once evry two day Active LORazepam 0.5 MG Oral for 10 A ctive buPROPion HCl ER (XL) 300 MG Oral for 90 Active Omeprazole 20 MG Oral for 90 A ctive IMMUNIZATIONS Vaccine Route Administration Date Status Comme nts Influenza Unknown 11/12/2019 Administered SOCIAL HISTORY Tobacco Use: Social History Observation Description Date Details (start date - stop date) Current Smoker NA - NA Sex Assigned At : Social History Observation Description Sex Assigned At Unknown Tobacco Use/Smoking Question Answer Notes Patient is a current smoker Alcohol Screen Question Answer Notes Did you have a drink contain ing alcohol in the past year? Yes How often did you have a dri nk containing alcohol in the past year? 2 to 4 times a month (2 points) How many drinks did you have on a typical day when you were drinking in the past year? 1 or 2 drinks (0 point) How often did you have 6 or more drinks on one occasion in the past year? Never (0 point) Points 2 Interpretation Negative PROBLEMS Problem Type ICD Code Onset Dates Problem Status W/U Status Risk SNOMED Code Notes Problem Gastroesophageal reflux disease without esophagitis (K21.9) Active confirmed 736141254 Problem History of colonic polyps (Z86.010) Active confirmed 877215531 Problem Encounter for screening for malignant neoplasm of colon (Z12.11) Active confirmed 820197855 Problem Diverticular disease of colon (K57.30) Active confirmed Diverticular disease of colon (137894999) PLAN OF TREATMENT Pending Test Test Name Order Date Pathology 11/04/2020 Future Test Test Name Order Date COLONOSCOPY 09/23/2020 Insurance Providers Payer Name Payer Address Payer Phone Subscriber Number Group Number Insured Name Patient Relationship to Insured Coverage Start Date Coverage End Date [facility] [address] [place] [address] [id number] LOTTIE GUNN Self - patient is the insured MEDICAL (GENERAL) HISTORY Medical History History ICD Code GERD--upper endoscopies in and 2017 and negative for signs of esophagitis nor Lin's esophagus--done by Dr. James Natarajan Negative colonoscopy in 2009 and a tubular adenoma removed during a colonoscopy in [address] James Natarajan Iron deficiency anemia--nega tive small bowel video capsule studies in 2009 and 2017--duodenal biopsies were negative for celiac disease and tissue transglutaminase antibodies were negative in 2018 as well--- other workup for his anemia as listed above Hypertension Hyperlipidemia Panic disorder/anxiety NIDDM Thyroid nodule Denies [place],CVA,Lung disease,renal disease Sleep apnea-uses CPAP intermittently Surgical History Surgery Date(Month/Year) Lower back surgery for disc disease 2006
[2024-04-22 13:37] LABS: Estimated Average Glucose 105 mg/dL; Hemoglobin A1C 135.7624 umol/L; Hemoglobin A1c % 5.3 % (<6.0); Total Hemoglobin (HGBA1C) 3925.4244 umol/L
[2024-04-22 13:50] LABS: Alanine Aminotransferase 26 U/L (0-40); Albumin Level 4.3 g/dL (3.5-5.0); Alkaline Phosphatase 65 U/L (39-117); Anion Gap 10 (12-20); Aspartate Amino Transferase 23 U/L (5-37); Bilirubin Total 0.5 mg/dL (0.0-1.0); Blood Urea Nitrogen 17 mg/dL (9-16); Calcium 9.5 mg/dL (8.4-10.2); Carbon Dioxide 27 mmol/L (22-29); Chloride 108 mmol/L (96-108); Cholesterol 138 mg/dL (<200); Estimated Glomerular Filt Rate > 60; Glucose Fasting 104 mg/dL (60-99); HDL Cholesterol 39 mg/dL (>40); LDL Cholesterol Calculated 77 mg/dL (<100); Potassium 4.7 mmol/L (3.3-5.1); Sodium 140 mmol/L (135-145); Total Protein 7.3 g/dL (6.5-8.0); Triglycerides 113 mg/dL (<150)
== END 2024-04-22 09:30 | disposition home or self-care (01) ==
LOC: HO.HMGCLDS 09:29
PROVIDERS: PCP Internal Medicine; Visit Provider Internal Medicine
DX: E11.9 Type 2 diabetes mellitus without complications (principal); I10 Essential (primary) hypertension; E66.3 Overweight
CPT/HCPCS: 36415; 80053; 80061; 83036

== ENCOUNTER 2024-04-25 12:31 | Outpatient (AMB) | payer OTHER, SELFPAY ==
[2024-04-25 12:33] VITALS: BP 124/76; PULSE 96; RESP 18; TEMP 36.7; O2SAT 96; BMI 34.8
--- NOTE | 2024-04-25 12:33 | MHC.PC.OV ---
Vital Signs 04/25/24 12:33 Height 5 ft 7 in Weight 222 lb BMI 34.8 BP 124/76 Blood Pressure Location Lt brachial Position Sitting Respiration 18 Pulse 96 Pulse Source Pulse Oximeter Temp 98.0 F Temp Source Oral Pulse Oximetry (%) 96 Oxygen Delivery Method Room Air Intake Visit Reasons: 3M F/U Intake Note: Pt is here today for 3 months follow up visit. Allergies No Known Allergies Allergy (Verified 04/25/24 12:39) Medication List - Last Reconciled 04/25/24 by Oralia Smith MD aspirin (Adult Low Dose Aspirin) 81 mg PO Q OTHER DAY atorvastatin 40 mg PO BEDTIME baclofen 10 mg PO BEDTIME blood sugar diagnostic (E[employer] Verio test strips) test blood sugars once a day blood sugar diagnostic As directed blood-glucose meter ([employer]uch Verio Flex Start kit) As directed blood-glucose meter ([employer]uch Verio Flex Meter) As directed 1 time a day bupropion HCl XL 300 mg PO BEDTIME 90 days cholecalciferol (vitamin D3) 50 mcg PO DAILY empagliflozin (Jardiance) 25 mg PO DAILY hydrocortisone 2.5% (Proctosol HC) 1 appl [place] BID-QID PRN losartan 100 mg PO DAILY meloxicam 15 mg PO DAILY metformin 1,000 mg PO .qd metoprolol succinate ER 50 mg PO DAILY omeprazole 20 mg PO DAILY Ozempic (semaglutide) 2 mg (0.75 mL) subcut QWEEK NS Tobacco use date assessed: 04/25/24 Dental Screening Dental Screen Date: 04/25/24 Did you have a dental visit in the last 12 months?: No Did you have a dental problem in the last 6 months where you did not have access to dental care?: No Was dental information given to patient?: Patient declined HPI 3M F/U HPI Details Patient presents for follow-up of hypertension hyperlipidemia type 2 diabetes chronic anxiety stable on current medications. 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 He denies chest pain palpitations nausea vomiting but reports increased sweating with the physical activity. 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 SALE TO [facility] Medical History Iron deficiency Hyperlipemia External hemorrhoids with complication Rectal prolapse Annual physical exam Abnormal colonoscopy Anxiety Lin esophagus Iron deficiency anemia GERD (gastroesophageal reflux disease) Panic disorder Thyroid nodule T2DM (type 2 diabetes mellitus) HTN (hypertension) Surgical History History of surgery History of hemorrhoidectomy History of back surgery History of esophagogastroduodenoscopy (EGD) Hx of colonoscopy Family History Father Diabetes mellitus Alzheimer disease Mother Diabetes mellitus CVD (cardiovascular disease) Social History Housing: House Alcohol intake: current Alcohol intake frequency: holidays/special occasions only Comment: previously medicated with ketorolac and oxycodone Patient Tobacco Use Status: Current someday Tobacco user Tobacco use type: Cigarette e-Cigarette/Vaping Use: Never Used Second Hand Smoke Exposure: No service: No Current occupational status: employed Cognitive needs: No Hearing needs: No Vision needs: Yes Questionnaire PHQ-9 Over the last 2 weeks, how often have you been bothered by any of the following problems? 1. Little interest or pleasure in doing things: several days 2. Feeling down, depressed, or hopeless: not at all 3. Trouble falling or staying asleep, or sleeping too much: more than half the days 4. Feeling tired or having little energy: several days 5. Poor appetite or overeating: not at all 6. Feeling bad about yourself - or that you are a failure or have let yourself or your family down: not at all 7. Trouble concentrating on things, such as reading the newspaper or watching television: not at all 8. Moving or speaking so slowly that other people could have noticed. Or the opposite - being so fidgety or restless that you have been moving around a lot more than usual: not at all 9. Thoughts that you would be better off or of hurting yourself in some way: not at all Total score: 4 Depression Screening Interpretation: Negative Depression Screening Done: Yes 09039 - PHQ-9 Billing: Yes Source: Developed by Drs. Mihir Christopher, Evelin Barr, Nato Whitley and colleagues, with an educational cheryl from [employer]. Thrive Questionnaire Date Thrive assessed: 04/25/24 I am a: Patient What is your living situation today?: I have a steady place to live Within the past 12 months, did the food you bought not last and you didn't have the money to get more?: Never true Within the past 12 months, did you worry whether your food would run out before you got money to buy more?: Never true Do you have trouble paying for medicines?: No Do you have trouble getting transportation to medical appointments?: No Do you have trouble paying your heating and electricity bill?: No Do you have trouble taking care of your child, family member or friend?: No Do you have trouble with day-to-day activities such as bathing, preparing meals, shopping, managing finances, etc.?: No Are you currently unemployed and looking for a job?: No Are you interested in more education?: I choose not to answer this question Please select the resources that you would like help with: None Currently or been in a relationship where the following occur: No concerns reported THRIVE Score: 0 AUDIT C Alcohol Use Questionnaire (AUDIT-C) 1. How often do you have a drink containing alcohol?: 2-3 times a week 2. How many drinks containing alcohol do you have on a typical day when you are drinking?: 1 or 2 3. How often do you have six or more drinks on one occasion?: Never Total Score: 3 GWEN-7 AMB Questionnaire GWEN-7 Date GWEN - 7 assessed: 04/25/24 Feeling nervous, anxious, or on edge: 1 = Several days Not being able to stop or control worryin = Several days Worrying too much about different things: 1 = Several days Trouble relaxin = More than half the days Being so restless that it is hard to sit still: 0 = Not at all Becoming easily annoyed or irritable: 0 = Not at all Feeling afraid as if something awful might happen: 0 = Not at all Total GWEN-7 score (0-4 normal; 5-9 mild; 10-14 moderate; 15-21 severe): 5 Source: Developed by Drs. Mihir Christopher, Evelin Barr, Nato Whitley and colleagues, with an educational cheryl from [employer]. GWEN-7 Assessment Billing GWEN-7 Assessment Tool: GWEN-7 Assessment 34796 Review of Systems Const All systems reviewed & are unremarkable except as noted in HPI and below Eyes Reports no additional complaints ENT Reports no additional complaints Card Reports no additional complaints Resp Reports no additional complaints GI Reports no additional complaints Reports no additional complaints Physical exam (Primary Care) Vital Signs: Last Vital Signs Temp 98.0 F 04/25/24 12:33 Pulse 96 04/25/24 12:33 Resp 18 04/25/24 12:33 BP 124/76 04/25/24 12:33 Pulse Ox 96 04/25/24 12:33 Oxygen Delivery Method Room Air 04/25/24 12:33 BMI result Body Mass Index 34.8 Tobacco/Smoking Status: Tobacco use Status Tobacco use date assessed 04/25/24 04/25/24 12:43 Patient Tobacco Use Status Current someday Tobacco 04/25/24 12:34 Tobacco use type Cigarette 04/25/24 12:34 e-Cigarette/Vaping Use Never Used 04/25/24 12:34 PHQ-9: PHQ-9 Score PHQ-9: Total score 4 04/25/24 12:43 Depression Screening Interpretation: Negative Thrive Assessment: Date of Thrive Assessment Date Thrive assessed 04/25/24 04/25/24 12:43 Currently or been in a relationship where the following occur: No concerns reported Const General: no acute distress HENMT Ears: hearing grossly normal bilaterally Face and sinus: Yes normal facial exam Throat: Yes posterior oropharynx normal Neck Neck: Yes no lymphadenopathy and Yes supple Resp Effort & Inspection: normal respiratory effort Auscultation: clear to auscultation bilaterally Cardio Rhythm: regular rhythm Heart sounds: S1 normal heart sound present and S2 normal heart sound present GI Inspection: Yes normal to inspection Palpation (GI): Soft to palpation Percussion: Yes normal to percussion Auscultation: normal bowel sounds Coding Level of Care Code Est Pt Level 4 (83513) Diagnoses Type 2 diabetes mellitus without complication, without long-term current use of insulin E11.9 Diabetes mellitus complication status: without complication Diabetes mellitus extermination supervisor insulin use: without extermination supervisor use Angina at rest I20.89 Pure hypercholesterolemia E78.00 Hyperlipidemia type: pure hypercholesterolemia Primary hypertension I10 Hypertension type: primary hypertension Additional Codes GWEN-7 Assessment Billing - GWEN-7 Assessment Tool: GWEN-7 Assessment 77237 ([id number]) PHQ-9 - 02798 - PHQ-9 Billing: Yes ([id number]) Assessment & Plan Assessment & Plan (1) T2DM (type 2 diabetes mellitus): Code(s): E11.9 - Type 2 diabetes mellitus without complications Category: Medical Qualifiers: Diabetes mellitus complication status: without complication Diabetes mellitus extermination supervisor insulin use: without intermediate use Qualified Code(s): E11.9 - Type 2 diabetes mellitus without complications Plan: A1c is 5.3, ADA diet increase physical activity weight loss discussed with the patient he will stop metformin continue Jardiance and Ozempic. Patient is considering switching from Ozempic to Mounjaro after he uses a three-month supply of Ozempic. (2) Angina at rest: Comment: Angina equivalent Code(s): I20.89 - Other forms of angina pectoris Category: Medical Plan: For episodes of intrascapular pain induced with strenuous physical activity patient will be referred for nuclear stress test. EKG showed normal sinus rhythm no ST-T changes (3) Hyperlipemia: Code(s): E78.5 - Hyperlipidemia, unspecified Category: Medical Qualifiers: Hyperlipidemia type: pure hypercholesterolemia Qualified Code(s): E78.00 - Pure hypercholesterolemia, unspecified Plan: Continue statin (4) HTN (hypertension): Code(s): I10 - Essential (primary) hypertension Category: Medical Qualifiers: Hypertension type: primary hypertension Qualified Code(s): I10 - Essential (primary) hypertension Plan: Continue current medications Orders: Orders CA stress test Today E11.9 - Type 2 diabetes mellitus without complications, I20.89 - Other forms of angina pectoris Lipid Panel 3 Months E11.9 - Type 2 diabetes mellitus without complications, I10 - Essential (primary) hypertension NM cardiolite stress test Today E11.9 - Type 2 diabetes mellitus without complications, I20.89 - Other forms of angina pectoris AMB EKG-In Office Today I10 - Essential (primary) hypertension, I20.89 - Other forms of angina pectoris Hemoglobin A1c 3 Months E11.9 - Type 2 diabetes mellitus without complications, I10 - Essential (primary) hypertension Comprehensive [place]. Panel Fast 3 Months E11.9 - Type 2 diabetes mellitus without complications, I10 - Essential (primary) hypertension Complete Blood Count Auto Diff 3 Months E11.9 - Type 2 diabetes mellitus without complications, I10 - Essential (primary) hypertension Microalbumin, Random (w Creat) 3 Months E11.9 - Type 2 diabetes mellitus without complications, I10 - Essential (primary) hypertension Medications: Changed From baclofen 10 mg PO BEDTIME 20 tabs 0RF To baclofen 10 mg PO BEDTIME PRN 30 tabs 0RF muscle spasm Refilled meloxicam 15 mg PO DAILY 30 tabs 0RF meloxicam 15 mg PO DAILY 30 tabs 0RF Discontinued metformin Discontinued Reason: Doctor's Order 1,000 mg PO .qd 90 tabs 3RF
--- OUTSIDE RECORDS SUMMARY | 2024-04-25 12:39 | XMS_ITS | Patient Health Record ---
Author Organization [facility] Address [address] [place] [address] Care Team Providers Care Tanbark Laborer Name Role Phone Oralia Smith MD Primary Care Provider Mihir Rizvi Unavailable [phone] ALLERGIES No Known Allergies REASON FOR REFERRAL [...] reflux disease without esophagitis (K21.9) Active confirmed 958615218 Problem History of colonic polyps (Z86.010) Active confirmed 577132316 Problem Encounter for screening for malignant neoplasm of colon (Z12.11) Active confirmed 440432524 Problem Diverticular disease of colon (K57.30) Active confirmed Diverticular disease of colon (631557755) PLAN OF TREATMENT Pending Test Test Name Order Date Pathology 11/04/2020 Future Test Test Name Order Date COLONOSCOPY 09/23/2020 Insurance Providers Payer Name Payer Address Payer Phone Subscriber Number Group Number Insured Name Patient Relationship to Insured Coverage Start Date Coverage End Date [facility] [address] [place] [address] [id number] LOTTIE GUNN Self - patient is the [...] Hyperlipidemia Panic disorder/anxiety NIDDM Thyroid nodule Denies [place],CVA,Lung disease,renal disease Sleep apnea-uses CPAP intermittently Surgical History Surgery Date(Month/Year) Lower back surgery for disc disease 2006
== END 2024-04-25 14:13 | disposition home or self-care (01) ==
PROVIDERS: PCP Internal Medicine; Visit Provider Internal Medicine
DX: E11.9 Type 2 diabetes mellitus without complications (principal); I20.89 Other forms of angina pectoris; E78.00 Pure hypercholesterolemia, unspecified; I10 Essential (primary) hypertension

== ENCOUNTER → 2024-04-25 12:31 | Outpatient (BNVA) | payer OTHER, SELFPAY | PROVIDERS: PCP Internal Medicine; Visit Provider Internal Medicine | DX: E11.9 Type 2 diabetes mellitus without complications (principal); I20.89 Other forms of angina pectoris; E78.00 Pure hypercholesterolemia, unspecified; I10 Essential (primary) hypertension | CPT/HCPCS: 96127; 99212 ==

== ENCOUNTER 2024-05-17 15:25 | Outpatient (AMB) | payer OTHER, SELFPAY ==
--- NOTE | 2024-05-17 15:31 | A.OFFVIS_ITS ---
Vital Signs 05/17/24 15:33 Height 5 ft 7 in Weight 222 lb 10.67 oz BMI 34.9 BP 120/74 Blood Pressure Location Rt brachial Position Sitting Pulse 96 Pulse Source Pulse Oximeter Pulse Oximetry (%) 100 Oxygen Delivery Method Room Air Intake Visit Reasons: dm Intake Note: Patient presents today for a follow-up on Type 2 Diabetes Mellitus: Last Diabetic eye exam was on: 03/14/2023 Last Podiatry exam was on: Does not see a Consumer Credit Counselor Most recent HbA1c: 5.3% 04/22/2024 Random Glucose- 170 mg/dL, Today Night Worker Required: No Accompanied by: Self / Same As Patient Allergies No Known Allergies Allergy (Verified 04/25/24 12:39) Medication List - Last Reconciled 05/17/24 by Shelia Kidd PA-C aspirin (Adult Low Dose Aspirin) 81 mg PO Q OTHER DAY atorvastatin 40 mg PO BEDTIME baclofen 10 mg PO BEDTIME PRN blood sugar diagnostic (Videonetics TechnologiesTouch Verio test strips) test blood sugars once a day blood sugar diagnostic As directed blood-glucose meter ([employer] Verio Flex Start kit) As directed blood-glucose meter (OneTouch Verio Flex Meter) As directed 1 time a day bupropion HCl XL 300 mg PO BEDTIME 90 days cholecalciferol (vitamin D3) 50 mcg PO DAILY empagliflozin (Jardiance) 25 mg PO DAILY hydrocortisone 2.5% (Proctosol HC) 1 appl SD BID-QID PRN losartan 100 mg PO DAILY meloxicam 15 mg PO DAILY metoprolol succinate ER 50 mg PO DAILY omeprazole 20 mg PO DAILY Ozempic (semaglutide) 2 mg (0.75 mL) subcut QWEEK NS HPI HPI dm: Details: Patient is a 63-year-old male with a significant past medical history of hypertension, type 2 diabetes, hyperlipidemia, anxiety and Lin's esophagus presenting today for a follow up regarding his diabetes. Endo: Dm-his last A1c is 5.3. He is currently on Jardiance 25 mg daily, Ozempic 2 mg once a week. At our last visit I d/cd the metformin. CV: Blood pressure today in the office is 120/74. He is currently on losartan 100 mg daily, metoprolol 50 mg daily. Cholesterol is managed with atorvastatin 40 mg. . [facility] Medical History Iron deficiency Hyperlipemia External hemorrhoids with complication Rectal prolapse Annual physical exam Abnormal colonoscopy Anxiety Lin esophagus Iron deficiency anemia GERD (gastroesophageal reflux disease) Panic disorder Thyroid nodule T2DM (type 2 diabetes mellitus) HTN (hypertension) Surgical History History of surgery History of hemorrhoidectomy History of back surgery History of esophagogastroduodenoscopy (EGD) Hx of colonoscopy Family History Father Diabetes mellitus Alzheimer disease Mother Diabetes mellitus CVD (cardiovascular disease) Social History Housing: House Alcohol intake: current Alcohol intake frequency: holidays/special occasions only Comment: previously medicated with ketorolac and oxycodone Patient Tobacco Use Status: Current someday Tobacco user Tobacco use type: Cigarette e-Cigarette/Vaping Use: Never Used Second Hand Smoke Exposure: No service: No Current occupational status: employed Cognitive needs: No Hearing needs: No Vision needs: Yes Physical Exam Vital Signs: BMI result Body Mass Index 34.9 Const Orientation/consciousness: patient oriented x3 HEENT Ears: hearing grossly normal bilaterally Neck Neck: Yes no lymphadenopathy Thyroid: Thyroid normal Carotids: no bruits Lymphatic: no lymphadenopathy noted Resp Auscultation: clear to auscultation bilaterally Cardio Rate: regular rate Rhythm: regular rhythm Heart sounds: S1 normal heart sound present and S2 normal heart sound present Peripheral pulses: dorsalis pedis present Skin General skin exam: no rashes or lesions noted Neuro General: patient oriented x3, gait normal and no focal motor deficits Extrem Other: Monofilament sensation intact bilaterally. Vibratory sensation intact bilaterally. Skin intact. General: Yes normal to inspection Results Reviewed Results Reviewed: Laboratory Tests 12/27/23 04/22/24 11:35 09:34 Sodium 140 Potassium 4.7 Chloride 108 Carbon Dioxide 27 Anion Gap 10 L BUN 17 H Creatinine 0.83 Estimated GFR > 60 Fasting Glucose 104 H Hemoglobin A1c % 5.3 AST 23 ALT 26 Triglycerides 113 Cholesterol 138 LDL Cholesterol, Calc 77 HDL Cholesterol 39 L Urine Creatinine 134.95 Urine Microalbumin 5.0 Microalb/Creat Ratio 3.7 Assessment & Plan Assessment & Plan (1) T2DM (type 2 diabetes mellitus): Code(s): E11.9 - Type 2 diabetes mellitus without complications Category: Medical Qualifiers: Diabetes mellitus complication status: without complication Diabetes mellitus long term care phlebotomist insulin use: without long term care phlebotomist use Qualified Code(s): E11.9 - Type 2 diabetes mellitus without complications Plan: We will reduce the Jardiance continue ozempic 2 mg weekly. He is seeing some weight loss with this. At our follow up in August if he has not lost more weight we did discuss switching to Mounjaro. (2) HTN (hypertension): Code(s): I10 - Essential (primary) hypertension Category: Medical Qualifiers: Hypertension type: primary hypertension Qualified Code(s): I10 - Essential (primary) hypertension Plan: wnl continue current plan (3) Hyperlipemia: Code(s): E78.5 - Hyperlipidemia, unspecified Category: Medical Qualifiers: Hyperlipidemia type: pure hypercholesterolemia Qualified Code(s): E78.00 - Pure hypercholesterolemia, unspecified Plan: continue current plan Medications: New empagliflozin (Jardiance) 10 mg PO QAM 90 tabs 2RF empagliflozin (Jardiance) 10 mg PO QAM 90 tabs 2RF Refilled Ozempic (semaglutide) 2 mg (0.75 mL) subcut QWEEK 9 mL 4RF NS Discontinued empagliflozin (Jardiance) Discontinued Reason: Doctor's Order 25 mg PO DAILY 90 tabs 3RF Coding Level of Care Code Est Pt Level 4 (65769) Complex EM visit Add On G2211 Diagnoses Type 2 diabetes mellitus without complication, without long-term current use of insulin E11.9 Diabetes mellitus complication status: without complication Diabetes mellitus long term care phlebotomist insulin use: without detention use Primary hypertension I10 Hypertension type: primary hypertension Pure hypercholesterolemia E78.00 Hyperlipidemia type: pure hypercholesterolemia
[2024-05-17 15:33] VITALS: BP 120/74; PULSE 96; O2SAT 100; BMI 34.9
[2024-05-17 15:40] LABS: Glucose, Whole Blood 170 mg/dL (60-115)
--- OUTSIDE RECORDS SUMMARY | 2024-05-17 16:59 | XMS_ITS | Patient Health Record ---
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 Name Role Phone Oralia Smith MD Primary Care Provider Mihir Rizvi Unavailable [phone] Allergies No Known Allergies Reason For Referral No Information Medications Medication SIG (Take, Route, Frequency, Duration) Notes [...] 20 MG Oral for 90 A ctive Immunizations Vaccine Route Administration Date Status Comme nts Influenza Unknown 11/12/2019 Administered Social History Tobacco Use: Social History Observation Description Date Details (start date - stop date) Current Smoker NA - NA Tobacco Use/Smoking Question Answer Notes Patient is [...] Never (0 point) Points 2 Interpretation Negative Section Notes: Cigars socially every two we eks; occ. alcohol Problems Problem Type SNOMED Code ICD Code Onset Dates Problem Status W/U Status Risk Notes Problem 264214782 Encounter for screening for malignant neoplasm of colon (Z12.11) Active confirmed Problem 727822196 Gastroesophageal reflux disease without esophagitis (K21.9) Active confirmed Problem Diverticular disease of colon (746513005) Diverticular disease of colon (K57.30) Active confirmed Problem 075894710 History of colon ic polyps (Z86.010) Active confirmed Plan Of Treatment Pending Test Test Name Order Date Pathology 11/04/2020 Future Test Test Name Order Date COLONOSCOPY 09/23/2020 Insurance Providers Payer Name Payer Address Payer Phone Subscriber Number Group Number Insured Name Patient Relationship to Insured Coverage Start Date Coverage End Date [place] [id number] [place] [address] [id number] LOTTIE GUNN Self - patient is the insured Medical (General) History Medical History History ICD Code GERD--upper endoscopies [...] Hyperlipidemia Panic disorder/anxiety NIDDM Thyroid nodule Denies [place],CVA,Lung disease,renal disease Sleep apnea-uses CPAP intermittently Surgical History Surgery Date(Month/Year) Lower back surgery for disc disease 2006
== END 2024-05-17 15:54 | disposition home or self-care (01) ==
PROVIDERS: PCP Internal Medicine; Visit Provider Physician Assistant
DX: E11.9 Type 2 diabetes mellitus without complications (principal); I10 Essential (primary) hypertension; E78.00 Pure hypercholesterolemia, unspecified

== ENCOUNTER → 2024-05-17 15:25 | Outpatient (BNVA) | payer OTHER, SELFPAY | PROVIDERS: PCP Internal Medicine; Visit Provider Physician Assistant | DX: E11.9 Type 2 diabetes mellitus without complications (principal); E78.00 Pure hypercholesterolemia, unspecified; I10 Essential (primary) hypertension | CPT/HCPCS: 82947; 99212 ==

== ENCOUNTER 2024-08-12 10:03 | Outpatient (REF) | payer OTHER, SELFPAY ==
--- OUTSIDE RECORDS SUMMARY | 2024-08-12 10:57 | XMS_ITS | Patient Health Record ---
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 Name Role Phone Oralia Smith MD Primary Care Provider Mihir Rizvi Unavailable [phone] Allergies No Known Allergies Reason For Referral [...] Problem Status W/U Status Risk Notes Problem 759130621 Encounter for screening for malignant neoplasm of colon (Z12.11) Active confirmed Problem 510702011 Gastroesophageal reflux disease without esophagitis (K21.9) Active confirmed Problem Diverticular dis ease of colon (K57.30) Active confirmed Problem 680362865 History of colon ic polyps (Z86.010) Active confirmed Plan Of Treatment Pending Test Test Name Order Date Pathology 11/04/2020 Future Test Test Name Order Date COLONOSCOPY 09/23/2020 Insurance Providers Payer Name Payer Address Payer Phone Subscriber Number Group Number Insured Name Patient Relationship to Insured Coverage Start Date Coverage End Date [facility] [address] [place] [address] [id number] LOTTIE GUNN Self - patient is the [...] Hyperlipidemia Panic disorder/anxiety NIDDM Thyroid nodule Denies [place],CVA,Lung disease,renal disease Sleep apnea-uses CPAP intermittently Surgical History Surgery Date(Month/Year) Lower back surgery for disc disease 2006
[2024-08-12 13:08] LABS: MANUAL DIFF FLAG NO
[2024-08-12 13:18] LABS: Basophils Percent Auto 0.4 % (0-2); Eosinophils Absolute Auto 0.1 X10*3/uL (0.0-0.4); Eosinophils Percent Auto 1.2 % (0-4); Hematocrit 45.3 % (42.0-52.0); Hemoglobin 14.8 g/dl (14.0-18.0); Imm Gran Abs Auto 0.02 X10*3/uL (0.00-0.03); Imm Gran Pct Auto 0.2 % (0.0-0.4); Lymphocytes Absolute Auto 1.6 X10*3/uL (1.2-4.9); Mean Corpuscular HGB Conc 32.7 g/dl (31.0-36.0); Mean Corpuscular Hemoglobin 26.8 pg (27.0-33.0); Mean Corpuscular Volume 82.1 fL (80.0-98.0); Mean Platelet Volume 10.7 fL (9.4-12.4); Monocytes Absolute Auto 0.7 X10*3/uL (0.1-1.2); Monocytes Percent Auto 8.6 % (2-11); Neutrophils Absolute Auto 5.7 x10*3/uL (2.0-8.3); Neutrophils Percent Auto 69.6 % (45-73); Platelet Count 198 X10*3/uL (160-400); Red Blood Count 5.52 X10*6/uL (4.60-5.80); Red Cell Distribution Width 15.3 % (11.0-16.0); White Blood Count 8.2 X10*3/uL (4.8-10.8)
[2024-08-12 13:28] LABS: Estimated Average Glucose 111 mg/dL; Hemoglobin A1c % 5.5 % (<6.0)
[2024-08-12 13:41] LABS: Creatinine Urine 181.49 mg/dL; Microalbum/Creatinine Ratio Ur 5.5 ug/mg cr (<30)
[2024-08-12 13:44] LABS: Alanine Aminotransferase 17 U/L (0-40); Albumin Level 4.1 g/dL (3.5-5.0); Alkaline Phosphatase 60 U/L (39-117); Anion Gap 13 (12-20); Aspartate Amino Transferase 18 U/L (5-37); Bilirubin Total 0.5 mg/dL (0.0-1.0); Blood Urea Nitrogen 13 mg/dL (9-16); Calcium 9.2 mg/dL (8.4-10.2); Carbon Dioxide 26 mmol/L (22-29); Chloride 109 mmol/L (96-108); Cholesterol 136 mg/dL (<200); Estimated Glomerular Filt Rate > 60; Glucose Fasting 111 mg/dL (60-99); HDL Cholesterol 36 mg/dL (>40); LDL Cholesterol Calculated 86 mg/dL (<100); Potassium 3.9 mmol/L (3.3-5.1); Sodium 144 mmol/L (135-145); Total Protein 6.5 g/dL (6.5-8.0); Triglycerides 74 mg/dL (<150)
== END 2024-08-12 10:04 | disposition home or self-care (01) ==
LOC: HO.HMGCLDS 10:03
PROVIDERS: PCP Internal Medicine; Visit Provider Internal Medicine
DX: E11.9 Type 2 diabetes mellitus without complications (principal); I10 Essential (primary) hypertension
CPT/HCPCS: 36415; 80053; 80061; 82043; 82570; 83036; 85025

== ENCOUNTER 2024-08-15 13:52 | Outpatient (AMB) | payer OTHER, SELFPAY ==
[2024-08-15 14:06] VITALS: BP 110/68; PULSE 90; RESP 18; TEMP 37.1; O2SAT 98; BMI 34.5
--- NOTE | 2024-08-15 14:06 | MHC.PC.OV ---
Vital Signs 08/15/24 14:06 Height 5 ft 7 in Weight 220 lb BMI 34.5 BP 110/68 Blood Pressure Location Rt brachial Position Sitting Respiration 18 Pulse 90 Pulse Source Pulse Oximeter Temp 98.8 F Temp Source Oral Pulse Oximetry (%) 98 Oxygen Delivery Method Room Air Intake Visit Reasons: PE Intake Note: Pt is here today for PE. Allergies No Known Allergies Allergy (Verified 08/15/24 14:24) Medication List - Last Reconciled 08/15/24 by Oralia Smith MD aspirin (Adult Low Dose Aspirin) 81 mg PO Q OTHER DAY atorvastatin 40 mg PO BEDTIME baclofen 10 mg PO BEDTIME PRN blood sugar diagnostic ([employer] Verio test strips) test blood sugars once a day blood sugar diagnostic As directed blood-glucose meter ([employer] Verio Flex Start kit) As directed blood-glucose meter ([employer] Verio Flex Meter) As directed 1 time a day bupropion HCl XL 300 mg PO BEDTIME 90 days cholecalciferol (vitamin D3) 50 mcg PO DAILY empagliflozin (Jardiance) 10 mg PO QAM hydrocortisone 2.5% (Proctosol HC) 1 appl HI BID-QID PRN losartan 100 mg PO DAILY meloxicam 15 mg PO DAILY metoprolol succinate ER 50 mg PO DAILY omeprazole 20 mg PO DAILY Ozempic (semaglutide) 2 mg (0.75 mL) subcut QWEEK NS Tobacco use date assessed: 08/15/24 Dental Screening Dental Screen Date: 08/15/24 Did you have a dental visit in the last 12 months?: Yes Did you have a dental problem in the last 6 months where you did not have access to dental care?: No Was dental information given to patient?: Patient has dentist HPI PE HPI Details Pt presents for PE. Patient reports episodes of exertional chest pressure 4/10 with some nausea, increased sweating with physical activity including conducting and fast walk on and off for the last few months. Patient's insurance declined nuclear stress test. [facility] Medical History Iron deficiency Hyperlipemia External hemorrhoids with complication Rectal prolapse Annual physical exam Abnormal colonoscopy Anxiety Lin esophagus Iron deficiency anemia GERD (gastroesophageal reflux disease) Panic disorder Thyroid nodule T2DM (type 2 diabetes mellitus) HTN (hypertension) Surgical History History of surgery History of hemorrhoidectomy History of back surgery History of esophagogastroduodenoscopy (EGD) Hx of colonoscopy Family History Father Diabetes mellitus Alzheimer disease Mother Diabetes mellitus CVD (cardiovascular disease) Social History (Reviewed 08/15/24 @ 14:26 by Yaquelin Grajeda [facility]) Housing: House Alcohol intake: current Alcohol intake frequency: holidays/special occasions only Comment: previously medicated with ketorolac and oxycodone Patient Tobacco Use Status: Current someday Tobacco user Tobacco use type: Cigarette e-Cigarette/Vaping Use: Never Used Second Hand Smoke Exposure: No service: No Current occupational status: employed Cognitive needs: No Hearing needs: No Vision needs: Yes Questionnaire PHQ-9 Over the last 2 weeks, how often have you been bothered by any of the following problems? 1. Little interest or pleasure in doing things: several days 2. Feeling down, depressed, or hopeless: not at all 3. Trouble falling or staying asleep, or sleeping too much: more than half the days 4. Feeling tired or having little energy: several days 5. Poor appetite or overeating: not at all 6. Feeling bad about yourself - or that you are a failure or have let yourself or your family down: not at all 7. Trouble concentrating on things, such as reading the newspaper or watching television: not at all 8. Moving or speaking so slowly that other people could have noticed. Or the opposite - being so fidgety or restless that you have been moving around a lot more than usual: not at all 9. Thoughts that you would be better off or of hurting yourself in some way: not at all Total score: 4 Depression Screening Interpretation: Negative Depression Screening Done: Yes 72688 - PHQ-9 Billing: Yes Source: Developed by Drs. Mihir Christopher, Evelin Barr, Nato Whitley and colleagues, with an educational cheryl from [employer]. Thrive Questionnaire Date Thrive assessed: 08/15/24 I am a: Patient What is your living situation today?: I have a steady place to live Within the past 12 months, did the food you bought not last and you didn't have the money to get more?: Never true Within the past 12 months, did you worry whether your food would run out before you got money to buy more?: Never true Do you have trouble paying for medicines?: No Do you have trouble getting transportation to medical appointments?: No Do you have trouble paying your heating and electricity bill?: No Do you have trouble taking care of your child, family member or friend?: No Do you have trouble with day-to-day activities such as bathing, preparing meals, shopping, managing finances, etc.?: No Are you currently unemployed and looking for a job?: No Are you interested in more education?: I choose not to answer this question Please select the resources that you would like help with: None Currently or been in a relationship where the following occur: No concerns reported THRIVE Score: 0 AUDIT C Alcohol Use Questionnaire (AUDIT-C) 1. How often do you have a drink containing alcohol?: Monthly or less 2. How many drinks containing alcohol do you have on a typical day when you are drinking?: 1 or 2 3. How often do you have six or more drinks on one occasion?: Never Total Score: 1 GWEN-7 AMB Questionnaire GWEN-7 Date GWEN - 7 assessed: 08/15/24 Feeling nervous, anxious, or on edge: 0 = Not at all Not being able to stop or control worryin = Not at all Worrying too much about different things: 0 = Not at all Trouble relaxin = Not at all Being so restless that it is hard to sit still: 0 = Not at all Becoming easily annoyed or irritable: 0 = Not at all Feeling afraid as if something awful might happen: 0 = Not at all Total GWEN-7 score (0-4 normal; 5-9 mild; 10-14 moderate; 15-21 severe): 0 Source: Developed by Drs. Mihir Christopher, Evelin Barr, Nato Whitley and colleagues, with an educational cheryl from [employer]. GWEN-7 Assessment Billing GWEN-7 Assessment Tool: GWEN-7 Assessment 84580 Review of Systems Const All systems reviewed & are unremarkable except as noted in HPI and below Eyes Reports no additional complaints ENT Reports no additional complaints Card Reports no additional complaints Resp Reports no additional complaints GI Reports no additional complaints Reports no additional complaints Musc Reports no additional complaints Physical exam (Primary Care) Vital Signs: Last Vital Signs Temp 98.8 F 08/15/24 14:06 Pulse 90 08/15/24 14:06 Resp 18 08/15/24 14:06 BP 110/68 08/15/24 14:06 Pulse Ox 98 08/15/24 14:06 Oxygen Delivery Method Room Air 08/15/24 14:06 BMI result Body Mass Index 34.5 Tobacco/Smoking Status: Tobacco use Status Tobacco use date assessed 08/15/24 08/15/24 14:21 Patient Tobacco Use Status Current someday Tobacco 08/15/24 14:06 Tobacco use type Cigarette 08/15/24 14:06 e-Cigarette/Vaping Use Never Used 08/15/24 14:06 PHQ-9: PHQ-9 Score PHQ-9: Total score 4 08/15/24 14:28 Depression Screening Interpretation: Negative Thrive Assessment: Date of Thrive Assessment Date Thrive assessed 08/15/24 08/15/24 14:28 Currently or been in a relationship where the following occur: No concerns reported Const General: no acute distress HENMT Head: Yes normal to inspection Ears: hearing grossly normal bilaterally Face and sinus: Yes normal facial exam Mouth: Normal oral and palatal mucosa present Throat: Yes posterior oropharynx normal Eyes General: appearance normal, both eyes and all related structures Neck Neck: Yes no lymphadenopathy and Yes supple Resp Effort & Inspection: normal respiratory effort Auscultation: clear to auscultation bilaterally Cardio Rhythm: regular rhythm Heart sounds: S1 normal heart sound present and S2 normal heart sound present GI Inspection: Yes normal to inspection Palpation (GI): Soft to palpation Percussion: Yes normal to percussion Auscultation: normal bowel sounds Coding Level of Care Code Est Pt Prev Care 40-64y(60988) Diagnoses Chest pain R07.9 Primary hypertension I10 Hypertension type: primary hypertension Type 2 diabetes mellitus without complication, without long-term current use of insulin E11.9 Diabetes mellitus assisted insulin use: without assisted use Diabetes mellitus complication status: without complication Pure hypercholesterolemia E78.00 Hyperlipidemia type: pure hypercholesterolemia Annual physical exam Z00.00 Additional Codes GWEN-7 Assessment Billing - GWEN-7 Assessment Tool: GWEN-7 Assessment 46998 ([id number]) PHQ-9 - 17106 - PHQ-9 Billing: Yes ([id number]) Assessment & Plan Assessment & Plan (1) Chest pain: Comment: Exertional chest pain Code(s): R07.9 - Chest pain, unspecified Category: Medical Plan: Obtain exercise stress test for episodes of exertional chest pain to rule out angina. 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 He will check with his insurance if Mounjaro is covered so Ozempic can be changed to Mounjaro. (4) Hyperlipemia: Code(s): E78.5 - Hyperlipidemia, unspecified Category: Medical Qualifiers: Hyperlipidemia type: pure hypercholesterolemia Qualified Code(s): E78.00 - Pure hypercholesterolemia, unspecified Plan: Continue statin, follow-up in 4 months with a fasting labs before (5) Annual physical exam: Code(s): Z00.00 - Encounter for general adult medical examination without abnormal findings Category: Medical Plan: Well-balanced diet regular physical activity weight loss discussed with the patient he is up-to-date with colonoscopy diabetic eye exam Orders: Orders Complete Blood Count Auto Diff 4 Months E11.9 - Type 2 diabetes mellitus without complications, E78.00 - Pure hypercholesterolemia, unspecified, I10 - Essential (primary) hypertension Hemoglobin A1c 4 Months E11.9 - Type 2 diabetes mellitus without complications, E78.00 - Pure hypercholesterolemia, unspecified, I10 - Essential (primary) hypertension CA stress test Today I20.89 - Other forms of angina pectoris, R07.9 - Chest pain, unspecified Comprehensive [place]. Panel Fast 4 Months E11.9 - Type 2 diabetes mellitus without complications, E78.00 - Pure hypercholesterolemia, unspecified, I10 - Essential (primary) hypertension Lipid Panel 4 Months E11.9 - Type 2 diabetes mellitus without complications, E78.00 - Pure hypercholesterolemia, unspecified, I10 - Essential (primary) hypertension PSA,Total (Free>4and<10) 4 Months E11.9 - Type 2 diabetes mellitus without complications, E78.00 - Pure hypercholesterolemia, unspecified, I10 - Essential (primary) hypertension
--- OUTSIDE RECORDS SUMMARY | 2024-08-15 16:27 | XMS_ITS | Patient Health Record ---
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 Role Phone Oralia Smith MD Primary Care Provider Mihir Rizvi Unavailable [phone] Allergies No Known Allergies Reason For Referral [...] Problem Status W/U Status Risk Notes Problem 501615190 Encounter for screening for malignant neoplasm of colon (Z12.11) Active confirmed Problem 165912650 Gastroesophageal reflux disease without esophagitis (K21.9) Active confirmed Problem Diverticular dis ease of colon (K57.30) Active confirmed Problem 753874216 History of colon ic polyps (Z86.010) Active confirmed Plan Of Treatment Pending Test Test Name Order Date Pathology 11/04/2020 Future Test Test Name Order Date COLONOSCOPY 09/23/2020 Insurance Providers Payer Name Payer Address Payer Phone Subscriber Number Group Number Insured Name Patient Relationship to Insured Coverage Start Date Coverage End Date [facility] [address] [place] [address] [id number] LOTTIE GUNN Self - patient is the [...]
== END 2024-08-15 15:13 | disposition home or self-care (01) ==
LOC: HO.HMCC 13:53
PROVIDERS: PCP Internal Medicine; Visit Provider Internal Medicine
DX: R07.9 Chest pain, unspecified (principal); I10 Essential (primary) hypertension; E11.9 Type 2 diabetes mellitus without complications; E78.00 Pure hypercholesterolemia, unspecified; Z00.00 Encounter for general adult medical examination without abnormal findings

== ENCOUNTER → 2024-08-15 13:52 | Outpatient (BNVA) | payer OTHER, SELFPAY | PROVIDERS: PCP Internal Medicine; Visit Provider Internal Medicine | DX: Z00.00 Encounter for general adult medical examination without abnormal findings (principal); I10 Essential (primary) hypertension; R07.9 Chest pain, unspecified; E11.9 Type 2 diabetes mellitus without complications; E78.00 Pure hypercholesterolemia, unspecified | CPT/HCPCS: 96127; 99396 ==

== ENCOUNTER 2024-12-11 07:46 | Outpatient (REF) | payer OTHER, SELFPAY ==
--- OUTSIDE RECORDS SUMMARY | 2024-12-11 07:51 | XMS_ITS | Patient Health Record ---
Author Organization [facility] Address [address] [place] [address] Care Team Providers Care Event Staff Member Name Role Phone Oralia Smith MD Primary Care Provider Mihir Rizvi Unavailable [phone] Allergies No Known Allergies Reason For Referral [...] Problem Status W/U Status Risk Notes Problem 820467349 Encounter for screening for malignant neoplasm of colon (Z12.11) Active confirmed Problem 616032213 Gastroesophageal reflux disease without esophagitis (K21.9) Active confirmed Problem Diverticular disease of colon (769044487) Diverticular disease of colon (K57.30) Active confirmed Problem 934594123 History of colon ic polyps (Z86.010) Active confirmed Plan Of Treatment Pending Test Test Name Order Date Pathology 11/04/2020 Future Test Test Name Order Date COLONOSCOPY 09/23/2020 Insurance Providers Payer Name Payer Address Payer Phone Subscriber Number Group Number Insured Name Patient Relationship to Insured Coverage Start Date Coverage End Date [employer] [id number] [place] [address] [id number] LOTTIE GUNN Self - patient is the [...] Hyperlipidemia Panic disorder/anxiety NIDDM Thyroid nodule Denies [place],CVA,Lung disease,renal disease Sleep apnea-uses CPAP intermittently Surgical History Surgery Date(Month/Year) Lower back surgery for disc disease 2006
[2024-12-11 10:05] LABS: MANUAL DIFF FLAG NO
[2024-12-11 10:07] LABS: Hematocrit 43.1 % (42.0-52.0); Hemoglobin 13.7 g/dl (14.0-18.0); Imm Gran Abs Auto 0.04 X10*3/uL (0.00-0.03); Imm Gran Pct Auto 0.5 % (0.0-0.4); Lymphocytes Absolute Auto 2.0 X10*3/uL (1.2-4.9); Mean Corpuscular HGB Conc 31.8 g/dl (31.0-36.0); Mean Corpuscular Hemoglobin 26.9 pg (27.0-33.0); Mean Corpuscular Volume 84.7 fL (80.0-98.0); NRBC Abs Auto 0.000 X10*3/uL (0.0-0.012); NRBC Pct Auto 0.0 /100WBC (0.0-0.2); Platelet Count 178 X10*3/uL (160-400); Red Blood Count 5.09 X10*6/uL (4.60-5.80); White Blood Count 7.4 X10*3/uL (4.8-10.8)
[2024-12-11 10:56] LABS: Alanine Aminotransferase 26 U/L (0-40); Albumin Level 3.8 g/dL (3.5-5.0); Alkaline Phosphatase 55 U/L (39-117); Anion Gap 9 (12-20); Aspartate Amino Transferase 30 U/L (5-37); Blood Urea Nitrogen 16 mg/dL (9-16); Calcium 8.4 mg/dL (8.4-10.2); Carbon Dioxide 29 mmol/L (22-29); Chloride 110 mmol/L (96-108); Cholesterol 120 mg/dL (<200); Estimated Glomerular Filt Rate > 60; HDL Cholesterol 33 mg/dL (>40); Potassium 3.8 mmol/L (3.3-5.1); Sodium 144 mmol/L (135-145); Total Protein 5.8 g/dL (6.5-8.0); Triglycerides 77 mg/dL (<150)
[2024-12-11 11:01] LABS: PSA,Total (Free>4and<10) 0.23 ng/mL (0.00-4.00)
== END 2024-12-11 07:47 | disposition home or self-care (01) ==
LOC: HO.HMGCLDS 07:46
PROVIDERS: PCP Internal Medicine; Visit Provider Internal Medicine
DX: Z12.5 Encounter for screening for malignant neoplasm of prostate (principal); E11.9 Type 2 diabetes mellitus without complications; I10 Essential (primary) hypertension; E78.00 Pure hypercholesterolemia, unspecified
CPT/HCPCS: 36415; 80053; 80061; 83036; 84153; 85025

== ENCOUNTER 2024-12-16 13:41 | Outpatient (AMB) | payer OTHER, SELFPAY ==
[2024-12-16 13:42] VITALS: BP 136/70; PULSE 98; RESP 18; TEMP 36.8; O2SAT 97; BMI 36.3
--- NOTE | 2024-12-16 13:42 | MHC.PC.OV ---
Vital Signs 12/16/24 13:42 Height 5 ft 7 in Weight 232 lb BMI 36.3 BP 136/70 Blood Pressure Location Lt brachial Position Sitting Respiration 18 Pulse 98 Pulse Source Pulse Oximeter Temp 98.2 F Temp Source Oral Pulse Oximetry (%) 97 Oxygen Delivery Method Room Air Intake Visit Reasons: 4m f/u Intake Note: Pt is here today for 4 months follow up visit. Allergies No Known Allergies Allergy (Verified 12/16/24 13:46) Medication List - Last Reconciled 12/16/24 by Oralia Smith MD aspirin (Adult Low Dose Aspirin) 81 mg PO Q OTHER DAY atorvastatin 40 mg PO BEDTIME baclofen 10 mg PO BEDTIME PRN blood sugar diagnostic As directed blood sugar diagnostic ([employer] Verio test strips) test blood sugars once a day blood-glucose meter ([employer] Verio Flex Start kit) As directed blood-glucose meter ([employer] Verio Flex Meter) As directed 1 time a day bupropion HCl XL 300 mg PO BEDTIME 90 days cholecalciferol (vitamin D3) 50 mcg PO DAILY empagliflozin (Jardiance) 10 mg PO QAM hydrocortisone 2.5% (Proctosol HC) 1 appl AR BID-QID PRN losartan 100 mg PO DAILY meloxicam 15 mg PO DAILY metoprolol succinate ER 50 mg PO DAILY omeprazole 20 mg PO DAILY Ozempic (semaglutide) 1 mg (0.75 mL) subcut QWEEK NS Tobacco use date assessed: 12/16/24 Dental Screening Dental Screen Date: 08/15/24 HPI 4m f/u HPI Details Pt presents for f/u HTN, hyperlipid, DM 2, stable on meds. Diarrhea resolved after patient lower the dose of Ozempic to 1 mg weekly. He also stopped taking metformin. Patient gained 12 lb since the last visit but reports fasting blood glucose around 100. [facility] Medical History Iron deficiency Hyperlipemia External hemorrhoids with complication Rectal prolapse Annual physical exam Abnormal colonoscopy Anxiety Lin esophagus Iron deficiency anemia GERD (gastroesophageal reflux disease) Panic disorder Thyroid nodule T2DM (type 2 diabetes mellitus) HTN (hypertension) Surgical History History of surgery History of hemorrhoidectomy History of back surgery History of esophagogastroduodenoscopy (EGD) Hx of colonoscopy Family History Father Diabetes mellitus Alzheimer disease Mother Diabetes mellitus CVD (cardiovascular disease) Social History Housing: House Alcohol intake: current Alcohol intake frequency: holidays/special occasions only Comment: previously medicated with ketorolac and oxycodone Patient Tobacco Use Status: Current someday Tobacco user Tobacco use type: Cigarette e-Cigarette/Vaping Use: Never Used Second Hand Smoke Exposure: No service: No Current occupational status: employed Cognitive needs: No Hearing needs: No Vision needs: Yes Questionnaire PHQ-9 Over the last 2 weeks, how often have you been bothered by any of the following problems? 1. Little interest or pleasure in doing things: several days 2. Feeling down, depressed, or hopeless: not at all 3. Trouble falling or staying asleep, or sleeping too much: more than half the days 4. Feeling tired or having little energy: several days 5. Poor appetite or overeating: not at all 6. Feeling bad about yourself - or that you are a failure or have let yourself or your family down: not at all 7. Trouble concentrating on things, such as reading the newspaper or watching television: not at all 8. Moving or speaking so slowly that other people could have noticed. Or the opposite - being so fidgety or restless that you have been moving around a lot more than usual: not at all 9. Thoughts that you would be better off or of hurting yourself in some way: not at all Total score: 4 Depression Screening Interpretation: Negative Depression Screening Done: Yes Source: Developed by Drs. Mihir Christopher, Evelin Barr, Nato Whitley and colleagues, with an educational cheryl from [employer]. Thrive Questionnaire Date Thrive assessed: 08/15/24 I am a: Patient What is your living situation today?: I have a steady place to live Within the past 12 months, did the food you bought not last and you didn't have the money to get more?: Never true Within the past 12 months, did you worry whether your food would run out before you got money to buy more?: Never true Do you have trouble paying for medicines?: No Do you have trouble getting transportation to medical appointments?: No Do you have trouble paying your heating and electricity bill?: No Do you have trouble taking care of your child, family member or friend?: No Do you have trouble with day-to-day activities such as bathing, preparing meals, shopping, managing finances, etc.?: No Are you currently unemployed and looking for a job?: No Are you interested in more education?: I choose not to answer this question Please select the resources that you would like help with: None Currently or been in a relationship where the following occur: No concerns reported THRIVE Score: 0 GWEN-7 AMB Questionnaire GWEN-7 Date GWEN - 7 assessed: 08/15/24 Feeling nervous, anxious, or on edge: 0 = Not at all Not being able to stop or control worryin = Not at all Worrying too much about different things: 0 = Not at all Trouble relaxin = Not at all Being so restless that it is hard to sit still: 0 = Not at all Becoming easily annoyed or irritable: 0 = Not at all Feeling afraid as if something awful might happen: 0 = Not at all Total GWEN-7 score (0-4 normal; 5-9 mild; 10-14 moderate; 15-21 severe): 0 Source: Developed by Drs. Mihir Christopher, Evelin Barr, Nato Whitley and colleagues, with an educational cheryl from [employer]. Review of Systems Const All systems reviewed & are unremarkable except as noted in HPI and below Eyes Reports no additional complaints ENT Reports no additional complaints Card Reports no additional complaints Resp Reports no additional complaints GI Reports no additional complaints Reports no additional complaints Physical exam (Primary Care) Vital Signs: Last Vital Signs Temp 98.2 F 12/16/24 13:42 Pulse 98 12/16/24 13:42 Resp 18 12/16/24 13:42 BP 136/70 12/16/24 13:42 Pulse Ox 97 12/16/24 13:42 Oxygen Delivery Method Room Air 12/16/24 13:42 BMI result Body Mass Index 36.3 Tobacco/Smoking Status: Tobacco use Status Tobacco use date assessed 12/16/24 12/16/24 13:47 Patient Tobacco Use Status Current someday Tobacco 12/16/24 13:44 Tobacco use type Cigarette 12/16/24 13:44 e-Cigarette/Vaping Use Never Used 12/16/24 13:44 PHQ-9: PHQ-9 Score PHQ-9: Total score 4 12/16/24 14:02 Depression Screening Interpretation: Negative Thrive Assessment: Date of Thrive Assessment Date Thrive assessed 08/15/24 12/16/24 13:44 Currently or been in a relationship where the following occur: No concerns reported Const General: no acute distress HENMT Head: Yes normal to inspection Face and sinus: Yes normal facial exam Mouth: Normal oral and palatal mucosa present Eyes General: appearance normal, both eyes and all related structures Neck Neck: Yes no lymphadenopathy and Yes supple Resp Effort & Inspection: normal respiratory effort Auscultation: clear to auscultation bilaterally Cardio Rhythm: regular rhythm Heart sounds: S1 normal heart sound present and S2 normal heart sound present GI Inspection: Yes normal to inspection Palpation (GI): Soft to palpation Percussion: Yes normal to percussion Auscultation: normal bowel sounds Coding Level of Care Code Est Pt Level 4 (99024) Diagnoses Anxiety F41.9 Primary hypertension I10 Hypertension type: primary hypertension Type 2 diabetes mellitus without complication, without long-term current use of insulin E11.9 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: without 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 use Diabetes mellitus complication status: without complication Assessment & Plan Assessment & Plan (1) Anxiety: Code(s): F41.9 - Anxiety disorder, unspecified Category: Medical Plan: Continue current medications (2) HTN (hypertension): Code(s): I10 - Essential (primary) hypertension Category: Medical Qualifiers: Hypertension type: primary hypertension Qualified Code(s): I10 - Essential (primary) hypertension Plan: Continue losartan and metoprolol (3) T2DM (type 2 diabetes mellitus): Comment: 2 mg of Ozempic causes diarrhea Code(s): E11.9 - Type 2 diabetes mellitus without complications Category: Medical Qualifiers: Diabetes mellitus fpc insulin use: without fpc use Diabetes mellitus complication status: without complication Qualified Code(s): E11.9 - Type 2 diabetes mellitus without complications Plan: A1c is 5.7, ADA diet increase exercise weight loss discussed with the patient. He will continue current medications and have fasting blood work in 4 months Orders: Orders Hemoglobin A1c 4 Months E11.9 - Type 2 diabetes mellitus without complications, I10 - Essential (primary) hypertension Comprehensive [place]. Panel Fast 4 Months E11.9 - Type 2 diabetes mellitus without complications, I10 - Essential (primary) hypertension Lipid Panel 4 Months E11.9 - Type 2 diabetes mellitus without complications, I10 - Essential (primary) hypertension Complete Blood Count Auto Diff 4 Months E11.9 - Type 2 diabetes mellitus without complications, I10 - Essential (primary) hypertension UA w Microscopic 4 Months E11.9 - Type 2 diabetes mellitus without complications, I10 - Essential (primary) hypertension Lipid Panel 8 Months E11.9 - Type 2 diabetes mellitus without complications, E78.00 - Pure hypercholesterolemia, unspecified, I10 - Essential (primary) hypertension Complete Blood Count Auto Diff 8 Months E11.9 - Type 2 diabetes mellitus without complications, E78.00 - Pure hypercholesterolemia, unspecified, I10 - Essential (primary) hypertension Microalbumin, Random (w Creat) 4 Months E11.9 - Type 2 diabetes mellitus without complications, I10 - Essential (primary) hypertension Hemoglobin A1c 8 Months E11.9 - Type 2 diabetes mellitus without complications, E78.00 - Pure hypercholesterolemia, unspecified, I10 - Essential (primary) hypertension Comprehensive [place]. Panel Fast 8 Months E11.9 - Type 2 diabetes mellitus without complications, E78.00 - Pure hypercholesterolemia, unspecified, I10 - Essential (primary) hypertension
--- OUTSIDE RECORDS SUMMARY | 2024-12-16 16:05 | XMS_ITS | Patient Health Record ---
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 Name Role Phone Oralia Smith MD Primary Care Provider Mihir Rizvi Unavailable [phone] Allergies No Known Allergies Reason For Referral [...] Problem Status W/U Status Risk Notes Problem [id number] Encounter for screening for malignant neoplasm of colon (Z12.11) Active confirmed Problem [id number] Gastroesophageal reflux disease without esophagitis (K21.9) Active confirmed Problem Diverticular disease of colon (529558023) Diverticular disease of colon (K57.30) Active confirmed Problem [id number] History of colon ic polyps (Z86.010) Active confirmed Plan Of Treatment Pending Test Test Name Order Date Pathology 11/04/2020 Future Test Test Name Order Date COLONOSCOPY 09/23/2020 Insurance Providers Payer Name Payer Address Payer Phone Subscriber Number Group Number Insured Name Patient Relationship to Insured Coverage Start Date Coverage End Date [id number] [place] [address] [id number] LOTTIE GUNN Self - patient is the [...] Hyperlipidemia Panic disorder/anxiety NIDDM Thyroid nodule Denies VT,CVA,Lung disease,renal disease Sleep apnea-uses CPAP intermittently Surgical History Surgery Date(Month/Year) Lower back surgery for disc disease 2006
== END 2024-12-16 15:19 | disposition home or self-care (01) ==
LOC: HO.HMCC 13:42
PROVIDERS: PCP Internal Medicine; Visit Provider Internal Medicine
DX: F41.9 Anxiety disorder, unspecified (principal); I10 Essential (primary) hypertension; E11.9 Type 2 diabetes mellitus without complications

== ENCOUNTER → 2024-12-16 13:41 | Outpatient (BNVA) | payer OTHER, SELFPAY | PROVIDERS: PCP Internal Medicine; Visit Provider Internal Medicine | DX: E11.9 Type 2 diabetes mellitus without complications (principal); I10 Essential (primary) hypertension; F41.9 Anxiety disorder, unspecified; Z79.899 Other long term (current) drug therapy | CPT/HCPCS: 99212 ==